=== PATIENT | male | born 1940 | race Caucasian/White ===

== ENCOUNTER 2018-09-29 09:59 | Inpatient (IN) | payer MEDICARE, OTHER ==
[2018-09-29] VITALS (17 sets, daily range): BP systolic 83–136; BP diastolic 63–111
[~2018-09-29] VITALS: Ht 170.2 cm; Wt 74.5 kg
[2018-09-29] MEDS ORDERED: DILTIAZEM 25 MG/5 ML INJ (CARDIZEM) VIAL IVP ONE (10:30)
[2018-09-29] MEDS ORDERED: NS IV 1000 ML 1,000 ML IV SCH (10:30)
[2018-09-29] MEDS ORDERED: DILTIAZEM INJECTION 125 MG in NS (IVPB) 100 ML IV SCH (10:30)
[2018-09-29 10:44] LABS: BASOPHILS % (AUTO) 1 % (0-10); EOSINOPHILS % (AUTO) 3 % (0-10); HEMATOCRIT 38 % (40-54); LYMPHOCYTES % (AUTO) 11 % (12-44); MEAN CORPUSCULAR HEMOGLOBIN 29 PG (25-34); MEAN CORPUSCULAR HGB CONC 32 G/DL (32-36); MEAN CORPUSCULAR VOLUME 91 FL (80-99); MEAN PLATELET VOLUME 10.5 FL (7.4-10.4); MONOCYTES # (AUTO) 0.8 X 10^3 (0.0-1.0); MONOCYTES % (AUTO) 9 % (0-12); NEUTROPHILS # (AUTO) 6.5 X 10^3 (1.8-7.8); NEUTROPHILS % (AUTO) 76 % (42-75); PLATELET COUNT 197 10^3/uL (130-400); RED CELL DISTRIBUTION WIDTH 14.5 % (10.0-14.5); WHITE BLOOD COUNT 8.5 10^3/uL (4.3-11.0)
--- NOTE | 2018-09-29 10:44 | ED General ---
General Chief Complaint: General Problems/Pain Stated Complaint: LT LEG SWELLING; NAUSEA Source of Information: Patient, Family Exam Limitations: No Limitations History of Present Illness Date Seen by Provider: Sep 29, 2018 Time Seen by Provider: 10:39 Initial Comments This 78-year-old white male presents with a number of complaints including palpitations, abdominal pain and nausea, leg swelling left worse than right. The patient denies fever, chills, headache, photophobia, stiff neck, productive cough, vomiting or diarrhea, hemoptysis, hematemesis, or black or tarry stool. The patient suffers from chronic A. fib. He has recently discontinued his amiodarone. His leg swelling has been present for the last 5 days. The patient's palpitations are chronic but have been worse in the last week. The patient currently is having neither abdominal pain or nausea. Allergies and Home Medications Allergies Coded Allergies: No Known Drug Allergies (Unverified , 09/29/18) Home Medications Albuterol Sulfate 1 Puff Puff, 2 PUFF IH Q4H PRN for SHORTNESS OF BREATH, ( Reported) 1 PUFF = 90 MCG Ascorbic Acid 500 Mg Tablet, 500 MG PO DAILY, (Reported) Aspirin 325 Mg Tablet.dr, 325 MG PO DAILY, (Reported) Donepezil HCl 10 Mg Tablet, 10 MG PO DAILY, (Reported) Doxycycline Hyclate 100 Mg Capsule, 100 MG PO DAILY, (Reported) Famotidine 20 Mg Tablet, 20 MG PO BID PRN for INDIGESTION, (Reported) Levothyroxine Sodium 25 Mcg Tablet, 25 MCG PO DAILY, (Reported) Metformin HCl 750 Mg Tab.er.24h, 750 MG PO for HYPERGLYCEMIA, (Reported) Prednisone 5 Mg Tablet, 5 MG PO DAILY, (Reported) Tamsulosin HCl 0.4 Mg Cap.er.24h, 0.4 MG PO BID, (Reported) Daily until stone passage Patient Home Medication List Home Medication List Reviewed: Yes Review of Systems Review of Systems Constitutional: No chills, No fever EENTM: No ear pain, No vision loss Respiratory: see HPI; No cough Cardiovascular: see HPI, edema (left leg greater than right), palpitations Gastrointestinal: abdominal pain; No diarrhea, No vomiting Genitourinary: no symptoms reported Musculoskeletal: No back pain, No neck pain Skin: No change in color, No rash Psychiatric/Neurological: No Symptoms Reported Hematologic/Lymphatic: No Symptoms Reported Immunological/Allergic: no symptoms reported Past Vhdbjvc-Npalkx-Ymagbw Hx Past Med/Social Hx: Reviewed Nursing Past Med/Soc Hx Patient Social History Recent Foreign Travel: No Contact w/Someone Who Travel: No Physical Exam Vital Signs Vital Signs - First Documented 09/29/18 09/29/18 10:37 11:29 Temp 97.4 Pulse 115 Resp 21 B/P (MAP) 131/87 (102) Pulse Ox 94 O2 Delivery Room Air O2 Flow Rate 2.00 Capillary Refill : Height, Weight, BMI Height: '" Weight: lbs. oz. kg; BMI Method: General Appearance: No Apparent Distress, WD/WN Eyes: Bilateral Eye Normal Inspection HEENT: Normal ENT Inspection Neck: Normal Inspection Respiratory: Decreased Breath Sounds Cardiovascular: Irregularly Irregular, Tachycardia Gastrointestinal: Normal Bowel Sounds, Non Tender, Soft Back: Normal Inspection Extremity: Swelling (3+ edema of the left leg. 2+ edema of the right leg.) Neurologic/Psychiatric: Alert, Oriented x3, No Motor/Sensory Deficits Skin: Normal Color, Warm/Dry Progress/Results/Core Measures Suspected Sepsis SIRS Temperature: Pulse: Respiratory Rate: Laboratory Tests 09/29/18 10:15: White Blood Count 8.5 Blood Pressure / Mean: Laboratory Tests 09/29/18 10:15: Creatinine 1.35H, INR Comment 1.2, Platelet Count 197, Total Bilirubin 0.8 Results/Orders Lab Results Laboratory Tests Test 09/29/18 10:15 Range/Units White Blood Count 8.5 4.3-11.0 10^3/uL Red Blood Count 4.17 L 4.35-5.85 10^6/uL Hemoglobin 12.0 L 13.3-17.7 G/DL Hematocrit 38 L 40-54 % Mean Corpuscular Volume 91 80-99 FL Mean Corpuscular Hemoglobin 29 25-34 PG Mean Corpuscular Hemoglobin Concent 32 32-36 G/DL Red Cell Distribution Width 14.5 10.0-14.5 % Platelet Count 197 130-400 10^3/uL Mean Platelet Volume 10.5 H 7.4-10.4 FL Neutrophils (%) (Auto) 76 H 42-75 % Lymphocytes (%) (Auto) 11 L 12-44 % Monocytes (%) (Auto) 9 0-12 % Eosinophils (%) (Auto) 3 0-10 % Basophils (%) (Auto) 1 0-10 % Neutrophils # (Auto) 6.5 1.8-7.8 X 10^3 Lymphocytes # (Auto) 1.0 1.0-4.0 X 10^3 Monocytes # (Auto) 0.8 0.0-1.0 X 10^3 Eosinophils # (Auto) 0.2 0.0-0.3 10^3/uL Basophils # (Auto) 0.1 0.0-0.1 10^3/uL Prothrombin Time 14.9 H 12.2-14.7 SEC INR Comment 1.2 0.8-1.4 D-Dimer 1.73 H 0.00-0.49 UG/ML Sodium Level 132 L 135-145 MMOL/L Potassium Level 4.3 3.6-5.0 MMOL/L Chloride Level 96 L 98-107 MMOL/L Carbon Dioxide Level 26 21-32 MMOL/L Anion Gap 10 5-14 MMOL/L Blood Urea Nitrogen 20 H 7-18 MG/DL Creatinine 1.35 H 0.60-1.30 MG/DL Estimat Glomerular Filtration Rate 51 BUN/Creatinine Ratio 15 Glucose Level 93 70-105 MG/DL Calcium Level 8.3 L 8.5-10.1 MG/DL Corrected Calcium 8.5 8.5-10.1 MG/DL Total Bilirubin 0.8 0.1-1.0 MG/DL Aspartate Amino Transf (AST/SGOT) 25 5-34 U/L Alanine Aminotransferase (ALT/SGPT) 20 0-55 U/L Alkaline Phosphatase 84 40-136 U/L Troponin T 130 *H <=15 NG/L B-Type Natriuretic Peptide 18790.0 H <100.0 PG/ML Total Protein 6.1 L 6.4-8.2 GM/DL Albumin 3.8 3.2-4.5 GM/DL Lipase 22 8-78 U/L My Orders Orders - TY RAUSCH MD Cbc With Automated Diff (09/29/18 10:22) BNP (09/29/18 10:22) Fibrin Degradation Products (09/29/18 10:22) Comprehensive Metabolic Panel (09/29/18 10:22) Chest 1 View Ap/Pa Only (09/29/18 10:22) Ekg Tracing (09/29/18 10:22) Diltiazem Injection (Cardizem Injection) (09/29/18 10:30) Ns (Ivpb) (Sodium C... W/Diltiazem Injec (09/29/18 10:30) Ns Iv 1000 Ml (Sodium Chloride 0.9%) (09/29/18 10:30) Ua Culture If Indicated (09/29/18 10:31) Lipase (09/29/18 10:31) Protime With Inr (09/29/18 10:31) Oxygen-Administer (09/29/18 10:45) Enoxaparin Injection (Lovenox Injection) (09/29/18 12:15) Medications Given in ED Current Medications Medications Dose Ordered Sig/Beatrice Route Start Time Stop Time Status Last Admin Dose Admin Diltiazem HCl 10 mg ONCE ONCE IVP 09/29/18 10:30 09/29/18 10:32 DC 09/29/18 10:52 10 MG Vital Signs/I&O 09/29/18 09/29/18 09/29/18 10:37 11:29 11:56 Temp 97.4 97.5 Pulse 115 114 Resp 21 18 B/P (MAP) 131/87 (102) 112/82 (92) Pulse Ox 94 95 98 O2 Delivery Room Air Nasal Cannula Nasal Cannula O2 Flow Rate 2.00 2.00 Capillary Refill : Progress Note : Time: 11:40 Progress Note The patient's EKG demonstrated RVR with a ventricular rate of 130. No acute injury pattern was appreciated. Patient's laboratory evaluation demonstrated a BNP of 12,000. The patient's troponin was elevated at 130. The patient's chest x-ray demonstrated a loss of the left hemidiaphragm with increased perihilar markings suggestive to me of CHF. I discussed treatment options with the patient and his and daughter. They would like to be transferred to [place]. A Cardizem bolus and drip of 10 mg/hr each was initiated. The patient's ventricular rate decreased to 105. His pressure was stable. Telephone consultation was undertaken with Dr. Casiano who was kind enough to admit the patient to the ICU [facility]. Departure Communication (Admissions) Time/Spoke to Admitting Phy: 11:45 Dr. Casiano Time/Spoke to Consulting Phy: 12:09 I discussed patient's presentation with Dr. Mcmahan, the patient's primary care physician at [place]. Impression Primary Impression: Congestive heart failure Qualified Codes: I50.43 - Acute on chronic combined systolic (congestive) and diastolic (congestive) heart failure Additional Impressions: Atrial fibrillation with rapid ventricular response Elevated troponin Elevated d-dimer Disposition: ADMITTED INPATIENT Condition: Improved Admissions Decision to Admit Reason: Admit from ER (General) Decision to Admit/Date: Sep 29, 2018 Time/Decision to Admit Time: 12:19 Transfer Time Spoke to Accepting Phy: 12:19 Departure-Patient Inst. Referrals: MICHEL MCMAHAN MD (PCP/Family) Primary Care Physician TY RAUSCH MD Sep 29, 2018 10:44
[2018-09-29 10:45] LABS: BASOPHILS # (AUTO) 0.1 10^3/uL (0.0-0.1); EOSINOPHILS # (AUTO) 0.2 10^3/uL (0.0-0.3)
--- NOTE | 2018-09-29 10:50 | Diagnostic Imaging Report ---
Indication: Nausea, leg swelling Findings: The heart size is upper limits but no gross overdistention of vascularity. Limited inspiratory volume, portable AP technique and body habitus limit evaluation of the lung bases particularly on the left where an infiltrate could not be excluded. Impression: Questionable infiltrate or atelectasis left base, upper limits heart size otherwise no abnormality apparent at this exam. Dictated by: Dictated on workstation # [id number]
[2018-09-29 10:56] LABS: FIBRIN DEGRADATION PRODUCTS 1.73 UG/ML (0.00-0.49); INR 1.2 (0.8-1.4); PROTHROMBIN TIME PATIENT 14.9 SEC (12.2-14.7)
[2018-09-29 11:20] LABS: BILIRUBIN,TOTAL 0.8 MG/DL (0.1-1.0); CALCIUM 8.3 MG/DL (8.5-10.1); CREATININE SERUM 1.35 MG/DL (0.60-1.30); POTASSIUM 4.3 MMOL/L (3.6-5.0)
[2018-09-29 11:22] LABS: ALBUMIN 3.8 GM/DL (3.2-4.5); TOTAL PROTEIN 6.1 GM/DL (6.4-8.2)
[2018-09-29] MEDS ORDERED: RT-ALBUINH IH (11:31)
[2018-09-29] MEDS ORDERED: ASPI325T32 PO (11:32)
[2018-09-29] MEDS ORDERED: DONE10TA41 PO (11:33)
[2018-09-29] MEDS ORDERED: FAMO20TA3 PO (11:34)
[2018-09-29] MEDS ORDERED: LEVO25TA5 PO (11:35)
[2018-09-29] MEDS ORDERED: TAMS0.4C2 PO (11:36)
[2018-09-29] MEDS ORDERED: PRED5TAB PO (11:39)
[2018-09-29] MEDS ORDERED: METF750T2 PO (11:42)
[2018-09-29] MEDS ORDERED: ASCO500T6 PO (11:45)
[2018-09-29] MEDS ORDERED: BENZ-36 PO (11:47)
[2018-09-29] MEDS ORDERED: DOXY100C2 PO (11:47)
[2018-09-29] MEDS ORDERED: ENOXAPARIN 80 MG/0.8 ML (LOVENOX) SYR SC ONE (12:15)
[2018-09-29 13:55] LABS: BILIRUBIN,URINE NEGATIVE (NEGATIVE); CLARITY,URINE CLEAR; COLOR,URINE YELLOW; GLUCOSE, URINE (UA) NEGATIVE (NEGATIVE); KETONES,URINE NEGATIVE (NEGATIVE); LEUKOCYTE ESTERASE ,URINE NEGATIVE (NEGATIVE); NITRITE,URINE NEGATIVE (NEGATIVE); PH,URINE 5.5 (5-9); PROTEIN,URINE TRACE (NEGATIVE); SQUAMOUS EPITHELIAL CELL,UR 0-2 /HPF; UROBILINOGEN,URINE 0.2 MG/DL (NORMAL)
[2018-09-29] MEDS ORDERED: DILTIAZEM 125 MG/NS 100 ML IV SCH ×2 (15:15)
[2018-09-29] MEDS ORDERED: CATHETER FLUSH 10 ML SYR IV PRN (15:15)
--- NOTE | 2018-09-29 15:19 | Consultation-Cardiology ---
HPI-Cardiology Cardiology Consultation: Date of Consultation 09/29/18 Time Seen by a Provider: 14:45 Date of Admission 09-29-18 Attending Physician Ty Rausch MD Admitting Physician Efrain Mcmahan MD Consulting Physician Ata Patel MD HPI: Chief Complaint: A-fib with RVR Mr. Schneider is a 78 year old male transferred to ICU 9 from [facility] ED. He reports he has a h/o a-fib for approx 30 years. He states he had seen a cloth measurer machine at [facility], but does not recall the name and has not seen him in several years. He states he came to the ED at [facility] d/t LLE swelling which started approx 6 days ago and has progressively gotten worse. He denies any c/ o CP or palpitations. He denies any syncope or near syncope. He states he does not take any other OAC than full strength ASA d/t h/o GI bleed several years ago for which he states a source was never found. He stated d/t chronic back pain he very inactive. Review of Systems-Cardiology Review of Systems Constitutional: No chills, No fever, No malaise Eyes: No vision change Ears/Nose/Throat: No recent hearing loss Respiratory: As described under HPI Cardiovascular: As described under HPI Gastrointestinal: No constipation, No diarrhea, No nausea, No vomiting Genitourinary: No dysuria; incontinence Musculoskeletal: As describe under HPI Skin: No rash, No ulcerations Psychiatric/Neurological: No seizure, No focal weakness, No syncope Hematologic: No bleeding abnormalities KJU-Wmsvvt-Qqjhnv Hx Patient Social History Alcohol Use: Denies Use Recreational Drug Use: No Smoking Status: Never a Smoker 2nd Hand Smoke Exposure: No Recent Foreign Travel: No Recent Infectious Disease Expo: No Hospitalization with Isolation: Denies Past Medical History PMH As described under Assessment. Allergies and Home Medications Allergies Coded Allergies: No Known Drug Allergies (Unverified , 09/29/18) Home Medications Albuterol Sulfate 1 Puff Puff, 2 PUFF IH Q4H PRN for SHORTNESS OF BREATH, ( Reported) Albuterol Sulfate 2.5 Mg/3 Ml Vial.neb, 2.5 MG NEB Q4H PRN for SHORTNESS OF BREATH, (Reported) Ascorbic Acid 500 Mg Tablet, 500 MG PO BID, (Reported) Aspirin 325 Mg Tablet.dr, 325 MG PO DAILY, (Reported) Benzonatate 200 Mg Capsule, 200 MG PO TID PRN for COUGH, (Reported) Donepezil HCl 10 Mg Tablet, 10 MG PO HS, (Reported) Doxycycline Hyclate 100 Mg Capsule, 100 MG PO HS, (Reported) Famotidine 20 Mg Tablet, 20 MG PO BID PRN for INDIGESTION, (Reported) Glipizide 10 Mg Tab.er.24, 10 MG PO DAILY, (Reported) Levothyroxine Sodium 25 Mcg Tablet, 25 MCG PO DAILY, (Reported) Metformin HCl 750 Mg Tab.er.24h, 750 MG PO DAILY PRN for HYPERGLYCEMIA, ( Reported) Oxymetazoline HCl 30 Ml Brooks, 1 SPRAY NS DAILY PRN for CONGESTION, (Reported) Prednisone 5 Mg Tablet, 5 MG PO DAILY, (Reported) Tamsulosin HCl 0.4 Mg Cap.er.24h, 0.4 MG PO BID, (Reported) Physical Exam-Cardiology Physical Exam Vital Signs/I&O 09/29/18 09/29/18 09/29/18 09/29/18 21:00 21:17 22:00 23:00 Pulse 89 111 89 Resp 14 14 15 B/P (MAP) 103/69 (80) 132/77 (95) 124/63 (83) Pulse Ox 99 97 100 O2 Delivery Nasal Cannula Nasal Cannula Nasal Cannula Nasal Cannula O2 Flow Rate 2.00 2.00 2.00 2.00 09/29/18 09/30/18 09/30/18 09/30/18 23:05 00:00 00:25 01:00 Temp 98.0 Pulse 87 80 Resp 25 29 B/P (MAP) 109/76 (87) 111/73 (86) Pulse Ox 95 100 100 O2 Delivery Nasal Cannula Nasal Cannula Nasal Cannula O2 Flow Rate 2.00 2.00 2.00 09/30/18 09/30/18 09/30/18 09/30/18 01:00 02:00 03:00 03:05 Temp 98.6 Pulse 94 84 84 Resp 30 13 B/P (MAP) 104/78 (87) 95/75 (82) Pulse Ox 100 100 100 O2 Delivery Nasal Cannula Nasal Cannula Nasal Cannula O2 Flow Rate 2.00 2.00 2.00 2/28/19 2/28/19 2/28/19 2/28/19 04:00 04:35 05:00 06:00 Pulse 78 78 70 64 Resp 23 20 21 B/P (MAP) 108/72 (84) 99/60 (73) 95/63 (74) Pulse Ox 100 100 100 98 O2 Delivery Nasal Cannula Nasal Cannula Nasal Cannula O2 Flow Rate 2.00 2.00 2.00 09/30/18 07:00 Pulse 65 09/30/18 00:00 Intake Total 450 ml Output Total 900 ml Balance -450 ml Capillary Refill : Less Than 3 Seconds Constitutional: AAO x 3, well-developed, well-nourished HEENT: hearing is well preserved, oral hygience is good Neck: No carotid bruit; carotid pulses are 2 + bilaterally Respiratory: No accessory muscle use, No respiratory distress; chest expansion is symmetric, chest is bilaterally symmetric, crackles (lower lobes bilat) Cardiovascular: irregularly irregular; No JVD; systolic murmur Gastrointestinal: No tender; round, audible bowel sounds Rectal: deferred Extremities: other (LLE swelling, mod) Neurologic/Psychiatric: oriented x 3, grossly intact Skin: No rash, No ulcerations; other (bruising at the umbilicus) Data Review Labs Laboratory Tests 09/29/18 10:15: White Blood Count 8.5, Red Blood Count 4.17L, Hemoglobin 12.0L, Hematocrit 38L, Mean Corpuscular Volume 91, Mean Corpuscular Hemoglobin 29, Mean Corpuscular Hemoglobin Concent 32, Red Cell Distribution Width 14.5, Platelet Count 197, Mean Platelet Volume 10.5H, Neutrophils (%) (Auto) 76H, Lymphocytes (%) (Auto) 11L, Monocytes (%) (Auto) 9, Eosinophils (%) (Auto) 3, Basophils (%) (Auto) 1, Neutrophils # (Auto) 6.5, Lymphocytes # (Auto) 1.0, Monocytes # (Auto) 0.8, Eosinophils # (Auto) 0.2, Basophils # (Auto) 0.1, Prothrombin Time 14.9H, INR Comment 1.2, D-Dimer 1.73H, Sodium Level 132L, Potassium Level 4.3, Chloride Level 96L, Carbon Dioxide Level 26, Anion Gap 10, Blood Urea Nitrogen 20H, Creatinine 1.35H, Estimat Glomerular Filtration Rate 51, BUN/Creatinine Ratio 15 , Glucose Level 93, Calcium Level 8.3L, Corrected Calcium 8.5, Total Bilirubin 0.8, Aspartate Amino Transf (AST/SGOT) 25, Alanine Aminotransferase (ALT/SGPT) 20, Alkaline Phosphatase 84, Troponin T 130*H, B-Type Natriuretic Peptide 81965.0H, Total Protein 6.1L, Albumin 3.8, Lipase 22 09/29/18 12:05: Glucometer 91 09/29/18 13:00: Urine Color YELLOW, Urine Clarity CLEAR, Urine pH 5.5, Urine Specific [place] < 1.005, Urine Protein TRACE, Urine Glucose (UA) NEGATIVE, Urine Ketones NEGATIVE , Urine Nitrite NEGATIVE, Urine Bilirubin NEGATIVE, Urine Urobilinogen 0.2, Urine Leukocyte Esterase NEGATIVE, Urine RBC (Auto) NEGATIVE, Urine RBC NONE, Urine WBC NONE, Urine Squamous Epithelial Cells 0-2, Urine Crystals NONE, Urine Bacteria NONE, Urine Casts NONE, Urine Mucus NEGATIVE, Urine Culture Indicated NO 09/29/18 15:50: Troponin I 0.084H 09/29/18 18:15: Troponin I 0.079H 09/29/18 21:04: Glucometer 129H 09/30/18 03:25: White Blood Count 9.2, Red Blood Count 3.77L, Hemoglobin 10.6L, Hematocrit 33L, Mean Corpuscular Volume 88, Mean Corpuscular Hemoglobin 28, Mean Corpuscular Hemoglobin Concent 32, Red Cell Distribution Width 14.9H, Platelet Count 176, Mean Platelet Volume 10.3, Neutrophils (%) (Auto) 79H, Lymphocytes (%) (Auto) 9L , Monocytes (%) (Auto) 10, Eosinophils (%) (Auto) 2, Basophils (%) (Auto) 1, Neutrophils # (Auto) 7.2, Lymphocytes # (Auto) 0.9L, Monocytes # (Auto) 0.9, Eosinophils # (Auto) 0.2, Basophils # (Auto) 0.1, Sodium Level 134L, Potassium Level 4.4, Chloride Level 103, Carbon Dioxide Level 20L, Anion Gap 11, Blood Urea Nitrogen 21H, Creatinine 1.52H, Estimat Glomerular Filtration Rate 45, BUN/ Creatinine Ratio 14, Glucose Level 90, Calcium Level 8.3L, Corrected Calcium 8.9 , Phosphorus Level 3.5, Magnesium Level 1.6L, Total Bilirubin 1.0, Aspartate Amino Transf (AST/SGOT) 28, Alanine Aminotransferase (ALT/SGPT) 21, Alkaline Phosphatase 72, B-Type Natriuretic Peptide 991.7H, Total Protein 5.1L, Albumin 3.2, Triglycerides Level 64, Cholesterol Level 136, LDL Cholesterol Direct 76, VLDL Cholesterol 13, HDL Cholesterol 49, Thyroid Stimulating Hormone (TSH) 4.11 Radiology NAME: GRETCHEN SCHNEIDER [facility] REC#: [id number] PT STATUS: ADM IN : 1940 PHYSICIAN: TY RAUSCH MD ADMIT DATE: 09/29/18/ICU Signed Date of Exam: 09/29/18 CHEST 1 VIEW AP/PA ONLY Indication: Nausea, leg swelling Findings: The heart size is upper limits but no gross overdistention of vascularity. Limited inspiratory volume, portable AP technique and body habitus limit evaluation of the lung bases particularly on the left where an infiltrate could not be excluded. Impression: Questionable infiltrate or atelectasis left base, upper limits heart size otherwise no abnormality apparent at this exam. Dictated by: Dictated on workstation # [id number] Dict: 09/29/18 1048 Trans: 09/29/18 1313 Interpreted by: KISHA MENDEZ Electronically signed by: KISHA MENDEZ 09/29/18 1313 ECG Impression ECG Initial ECG Impression: Atrial Fibrillation w/RVR A/P-Cardiology Assessment/Admission Diagnosis Chronic a-fib (pt reports 30 years) - currently with RVR (reports he was on Amiodarone in the past) LLE swelling of undetermined etiology H/O TIA's in the past CHF Reported h/o GI bleed in the past for which he has undergone endoscopy and no source was found (per pt) - he refuses any OAC other than full dose ASA DM II Reports h/o hypotension d/t medications in the past - exact details unknown Chronic back pain - states relatively inactive at home d/t pain Hypothyroidism - replacement tx Renal insufficiency - like chronic in some part d/t diabetic nephrology Discussion and Recomendations Chronic a-fib, currently with RVR - continue Cardizem gtt - titrate for rate Echocardiogram to evaluate perfusion Currently receiving Lovenox for stroke prophylaxis We advise OAC for stroke prophylaxis - he refuses anything other than ASA d/t reported h/o GI bleed in the past - he is aware of the implications of his decision LLE swelling - advise lower extremity doppler to eval for DVT Monitor lab closely We advise TSH Further recs will be based on his hospital course TONY HOLLIDAY Sep 29, 2018 15:19
--- NOTE | 2018-09-29 15:28 | History & Physical-Hospitalist ---
History of Present Illness HPI/Chief Complaint Pt is a 78yoCM with a PMH of a-fib, NIDDMII, hypothyroidism, TIA who presented to the ER with a CC of left leg swelling times 6 days. He states he was seen by his primary care doctor and was scheduled for an outpatient ultrasound but his thought he was doing worse so brought him to the emergency room. He was found to have significant lower extremity edema and a BNP of 12k. He was also found to be in a-fib with RVR. Reportedly he is supposed to be on amiodarone but quit taking it. He seems to be noncompliant with most of his medications as he has not been taking his metformin either. He is a somewhat poor historian and attempts to compensate for recollection issues with humor. He states he is feeling well and isn't sure why he is in the hospital but when directly asked about symptoms he endorses SOB, orthopnea, and palpitations. He states his heart rate is normally 120s at home. Source: patient Date Seen 09/29/18 Time Seen by a Provider: 15:25 Attending Physician Adalberto Briseno MD PCP SelfEfrain MD Referring Physician Date of Admission Sep 29, 2018 at 12:19 Home Medications & Allergies Home Medications Reviewed patient Home Medication Reconciliation performed by pharmacy medication reconciliations camera technician and/or nursing. Patients Allergies have been reviewed. Allergies Allergies Coded Allergies No Known Drug Allergies (Unverified09/29/18) Past Kdqfoja-Nybvce-Cjljnd Hx Past Med/Social Hx: Reviewed Nursing Past Med/Soc Hx Patient Social History Marrital Status: Alcohol Use: Denies Use Recreational Drug Use: No Smoking Status: Never a Smoker 2nd Hand Smoke Exposure: No Recent Foreign Travel: No Contact w/other who traveled: No Recent Hopitalizations: No Recent Infectious Disease Expo: No Seasonal Allergies Seasonal Allergies: No Past Medical History Cardiac: Atrial Fibrillation, Hypotension Neurological: TIA Genitourinary: Renal Failure Endocrine: Diabetes, Non-Insulin dep History of Blood Disorders: No Adverse Reaction to Blood Nixon: No Family History Reviewed Nursing Family Hx No Pertinent Family Hx Review of Systems Constitutional: no symptoms reported EENTM: no symptoms reported Respiratory: orthopnea, short of breath Cardiovascular: No chest pain; edema, palpitations Gastrointestinal: no symptoms reported Genitourinary: no symptoms reported Musculoskeletal: no symptoms reported Skin: no symptoms reported Psychiatric/Neurological: No Symptoms Reported Physical Exam Physical Exam Vital Signs Vital Signs - First Documented 09/29/18 09/29/18 10:37 11:29 Temp 97.4 Pulse 115 Resp 21 B/P (MAP) 131/87 (102) Pulse Ox 94 O2 Delivery Room Air O2 Flow Rate 2.00 Capillary Refill : Less Than 3 Seconds Height, Weight, BMI Height: 5'7.00" Weight: 160lbs. oz. 72.772281pt; BMI Method:Stated General Appearance: No Apparent Distress, Chronically ill HEENT: Moist Mucous Membranes; No Scleral Icterus (L), No Scleral Icterus (R) Respiratory: No Accessory Muscle Use, No Respiratory Distress, Decreased Breath Sounds Cardiovascular: No Murmur, Irregularly Irregular Gastrointestinal: Normal Bowel Sounds, Non Tender, Soft Extremity: No Calf Tenderness, No Pedal Edema Neurologic/Psychiatric: Alert, No Motor/Sensory Deficits, Normal Mood/Affect Skin: Normal Color, Warm/Dry Results Results/Procedures Labs Laboratory Tests 09/29/18 10:15 09/30/18 03:25 Patient resulted labs reviewed. Imaging: Reviewed Imaging Report Assessment/Plan Admission Diagnosis a-fib with RVR Admission Status: Inpatient Order (span 2 midnights) Reason for Inpatient Admission: ICu level care for cardizem gtt, needs IV diuresis Diagnosis/Problems Diagnosis/Problems (1) Atrial fibrillation with rapid ventricular response Status: Acute Assessment & Plan: Rate improved to 100-110 during my exam Continue on carizem gtt echo ordered Patient declines anticoagulation due to history of GI bleed- on ASA only Cardiology consulted, appreciate recs (2) Congestive heart failure Status: Acute Assessment & Plan: IV lasix ordered Echo Cardiology consulted Monitor i/os Qualifiers: Heart failure type: systolic Heart failure chronicity: acute on chronic Qualified Codes: I50.23 - Acute on chronic systolic (congestive) heart failure (3) Hypothyroidism Status: Chronic Assessment & Plan: Resume home synthroid Qualifiers: Hypothyroidism type: unspecified Qualified Codes: E03.9 - Hypothyroidism, unspecified (4) Non-insulin dependent type 2 diabetes mellitus Assessment & Plan: Only take metformin prn and is on glyburide Will hold both and monitor blood sugars sliding scale insulin (5) Elevated troponin Status: Acute Assessment & Plan: Mildly elevated troponin at outside ER Will trend Cardiology consulted (6) Elevated d-dimer Status: Acute Assessment & Plan: Doppler of left lower extremity ordered (7) CKD (chronic kidney disease) Assessment & Plan: Unsure of baseline but patient reports history of CKD Trend Qualifiers: Chronic kidney disease stage: stage 2 (mild) Qualified Codes: N18.2 - Chronic kidney disease, stage 2 (mild) HELDER ROMAN MD Sep 29, 2018 15:28
[2018-09-29] MEDS ORDERED: GLIP-173 PO (15:58)
[2018-09-29] MEDS ORDERED: ALBU2.5V4 NEB (15:58)
[2018-09-29] MEDS ORDERED: BENZ200C51 PO (15:58)
--- NOTE | 2018-09-29 15:58 | Diagnostic Imaging Report ---
PROCEDURE: US left lower extremity venous. TECHNIQUE: Multiple real-time grayscale images were obtained over the left lower extremity in various projections. Additional duplex Doppler and color Doppler images were also obtained. INDICATION: Left leg swelling. EXAMINATION: Grayscale and color Doppler evaluation of the deep veins of the left lower extremity were performed with waveform analysis. FINDINGS: Continuous venous flow is present. No intraluminal filling defect is identified. There is normal compressibility and response to augmentation. No abnormal perivascular fluid collection is identified. IMPRESSION: No ultrasound evidence of left lower extremity deep venous thrombosis. Dictated by: Dictated on workstation # [id number]
[2018-09-29] MEDS ORDERED: FLU QUADRIvalent (5+ YOA) 2018-2019 (AFLURIA) 0.5 ML IM ONE (16:00)
[2018-09-29] MEDS ORDERED: OXYM30SP NS (16:27)
--- NOTE | 2018-09-29 16:28 | NUR ---
CALLED AND SPOKE WITH THE PATIENTS ANNE AT [phone]. SHE STATES SHE GAVE A LIST OF MEDICATIONS TO THE ED IN [place] HOWEVER I DID NOT FIND A COPY. SHE READ THE LIST SHE HAS TO ME AND I COMPARED IT WITH THE EXT MED HX. HIS PREDNISONE IS FILLED FOR 1 TAB BID HOWEVER SHE STATES HE ONLY TAKES 1 TAB ONCE DAILY. HE TAKES THE FOLLOWING OTC: AFRIN PRN ASPIRIN 325MG DAILY PEPCID PRN VITAMIN C BID IN ADDITION TO WHAT IS SHOWN ON THE EXT MED HX SHE STATES HE HAS A PROAIR INHALER NEEDED ON HAND. HE ALSO HAS METFORMIN HE TAKES PRN FOR HIGH BLOOD SUGAR. I CALLED JESSICA IN [place] AND THEY VERIFIED THE FILLED METFORMIN ER 750MG BID #[id number] IN 2016. I ADDED IT TO THE MED REC BUT SHE STATES HE DOES NOT TAKE IT OFTEN AND HE RARELY TESTS HIS BLOOD SUGAR BUT HE KNOWS WHEN HE IS VERY HIGH.
[2018-09-29] MEDS ORDERED: KCL 20 MEQ TAB (K-DUR) PO NR (16:30)
[2018-09-29] MEDS ORDERED: DILTIAZEM 240 MG (CARDIZEM CD) CAP PO NR (16:30)
[2018-09-29] MEDS ORDERED: PATIENT MAY USE OWN MED,SINGLE MED PO SCH (17:00)
[2018-09-29] MEDS: FUROSEMIDE 40 MG/4 ML INJ (LASIX) IVP SCH (17:30)
[2018-09-29] MEDS: NS IV 1000 ML 1,000 ML IV SCH (17:41)
[2018-09-29] MEDS ORDERED: NON-FORMULARY MEDICATION 1 EA EA (Famotidine (Acid Reducer (FAMOTIDINE)) 20 MG) PO PRN (18:45)
[2018-09-29] MEDS ORDERED: NON-FORMULARY MEDICATION 1 EA EA (Benzonatate 200 MG) PO PRN (18:45)
[2018-09-29] MEDS ORDERED: RT-ALBUTEROL SULF 2.5 MG/3 ML PRE-MIX VIAL INH PRN (18:45)
[2018-09-29] MEDS ORDERED: FAMOTIDINE 20 MG (PEPCID) TABLET PO PRN (19:00)
--- NOTE | 2018-09-29 19:10 | Consultation-Cardiology ---
HPI-Cardiology Cardiology Consultation: Date of Consultation 09/29/18 Time Seen by a Provider: 18:20 Date of Admission Attending Physician Ariadne Casiano MD Admitting Physician Efrain Mcmahan MD Consulting Physician SAMANTHA LOYOLA MD, MA, FACP, FACC, [facility] [place], CCDS Physician requesting consult: Dr Casiano HPI: Chief Complaint: Reason for consultation: A-fib with RVR HPI Mr. Neff is a 78 year old male transferred to ICU 9 from [facility] ED. He reports he has a h/o a-fib for approx 30 years. He states he had seen a pneumatic tube fitter at [facility], but does not recall the name and has not seen him in several years. He states he came to the ED at [facility] d/t LLE swelling which started approx 6 days ago and has progressively gotten worse. He denies any c/ o CP or palpitations. He denies any syncope or near syncope. He states he does not take any other OAC than full strength ASA d/t h/o GI bleed several years ago for which he states a source was never found. He stated d/t chronic back pain he very inactive. Review of Systems-Cardiology Review of Systems Constitutional: No chills, No fever, No malaise Eyes: No vision change Ears/Nose/Throat: No recent hearing loss Respiratory: As described under HPI Cardiovascular: As described under HPI Gastrointestinal: No constipation, No diarrhea, No nausea, No vomiting Genitourinary: No dysuria; incontinence Musculoskeletal: As describe under HPI Skin: No rash, No ulcerations Psychiatric/Neurological: No seizure, No focal weakness, No syncope Hematologic: No bleeding abnormalities [id number]-Kifuoe Hx Patient Social History Marrital Status: Alcohol Use: Denies Use Recreational Drug Use: No Smoking Status: Never a Smoker 2nd Hand Smoke Exposure: No Recent Foreign Travel: No Recent Infectious Disease Expo: No Hospitalization with Isolation: Denies Immunizations Up To Date Date of Pneumonia Vaccine: Sep 29, 2017 Past Medical History PMH As described under Assessment. Allergies and Home Medications Allergies Coded Allergies: No Known Drug Allergies (Unverified , 09/29/18) Home Medications Albuterol Sulfate 1 Puff Puff, 2 PUFF IH Q4H PRN for SHORTNESS OF BREATH, ( Reported) Albuterol Sulfate 2.5 Mg/3 Ml Vial.neb, 2.5 MG NEB Q4H PRN for SHORTNESS OF BREATH, (Reported) Ascorbic Acid 500 Mg Tablet, 500 MG PO BID, (Reported) Aspirin 325 Mg Tablet.dr, 325 MG PO DAILY, (Reported) Benzonatate 200 Mg Capsule, 200 MG PO TID PRN for COUGH, (Reported) Donepezil HCl 10 Mg Tablet, 10 MG PO HS, (Reported) Doxycycline Hyclate 100 Mg Capsule, 100 MG PO HS, (Reported) Famotidine 20 Mg Tablet, 20 MG PO BID PRN for INDIGESTION, (Reported) Glipizide 10 Mg Tab.er.24, 10 MG PO DAILY, (Reported) Levothyroxine Sodium 25 Mcg Tablet, 25 MCG PO DAILY, (Reported) Metformin HCl 750 Mg Tab.er.24h, 750 MG PO DAILY PRN for HYPERGLYCEMIA, ( Reported) Oxymetazoline HCl 30 Ml Melvin, 1 SPRAY NS DAILY PRN for CONGESTION, (Reported) Prednisone 5 Mg Tablet, 5 MG PO DAILY, (Reported) Tamsulosin HCl 0.4 Mg Cap.er.24h, 0.4 MG PO BID, (Reported) Patient Home Medication List Home Medication List Reviewed: Yes Physical Exam-Cardiology Physical Exam Vital Signs/I&O 09/29/18 09/29/18 09/29/18 09/29/18 10:37 11:29 11:56 13:15 Temp 97.4 97.5 Pulse 115 114 96 Resp 19 B/P (MAP) 131/87 (102) 112/82 (92) 122/82 (95) Pulse Ox 94 95 98 92 O2 Delivery Room Air Nasal Cannula Nasal Cannula Nasal Cannula O2 Flow Rate 2.00 2.00 2.00 09/29/18 09/29/18 09/29/18 09/29/18 13:53 14:00 14:49 15:00 Temp 97.3 97.8 Pulse 135 115 117 Resp 17 23 B/P (MAP) 116/92 (100) 116/78 (91) 136/100 (112) Pulse Ox 94 94 96 O2 Delivery Nasal Cannula Room Air Nasal Cannula O2 Flow Rate 2.00 2.00 2.00 09/29/18 09/29/18 09/29/18 09/29/18 15:01 15:15 15:30 15:45 Pulse 110 116 116 105 Resp 18 14 15 B/P (MAP) 131/85 (100) 112/82 (92) 108/70 (83) Pulse Ox 98 97 98 O2 Delivery Nasal Cannula Nasal Cannula Nasal Cannula O2 Flow Rate 2.00 2.00 2.00 09/29/18 09/29/18 09/29/18 09/29/18 16:00 16:15 17:00 18:00 Pulse 101 98 116 113 Resp 19 27 17 18 B/P (MAP) 107/85 (92) 124/83 (97) 128/111 (117) 83/63 (70) Pulse Ox 97 98 98 O2 Delivery Nasal Cannula Nasal Cannula Nasal Cannula Nasal Cannula O2 Flow Rate 2.00 2.00 2.00 2.00 Capillary Refill : Less Than 3 Seconds Constitutional: AAO x 3, well-developed, well-nourished HEENT: hearing is well preserved, oral hygience is good Neck: No carotid bruit; carotid pulses are 2 + bilaterally Respiratory: No accessory muscle use, No respiratory distress; chest expansion is symmetric, chest is bilaterally symmetric, crackles (lower lobes bilat) Cardiovascular: irregularly irregular; No JVD; systolic murmur Gastrointestinal: No tender; round, audible bowel sounds Rectal: deferred Extremities: other (LLE swelling, mod) Neurologic/Psychiatric: oriented x 3, grossly intact Skin: No rash, No ulcerations; other (bruising at the umbilicus) Data Review Labs Laboratory Tests 09/29/18 10:15: White Blood Count 8.5, Red Blood Count 4.17L, Hemoglobin 12.0L, Hematocrit 38L, Mean Corpuscular Volume 91, Mean Corpuscular Hemoglobin 29, Mean Corpuscular Hemoglobin Concent 32, Red Cell Distribution Width 14.5, Platelet Count 197, Mean Platelet Volume 10.5H, Neutrophils (%) (Auto) 76H, Lymphocytes (%) (Auto) 11L, Monocytes (%) (Auto) 9, Eosinophils (%) (Auto) 3, Basophils (%) (Auto) 1, Neutrophils # (Auto) 6.5, Lymphocytes # (Auto) 1.0, Monocytes # (Auto) 0.8, Eosinophils # (Auto) 0.2, Basophils # (Auto) 0.1, Prothrombin Time 14.9H, INR Comment 1.2, D-Dimer 1.73H, Sodium Level 132L, Potassium Level 4.3, Chloride Level 96L, Carbon Dioxide Level 26, Anion Gap 10, Blood Urea Nitrogen 20H, Creatinine 1.35H, Estimat Glomerular Filtration Rate 51, BUN/Creatinine Ratio 15 , Glucose Level 93, Calcium Level 8.3L, Corrected Calcium 8.5, Total Bilirubin 0.8, Aspartate Amino Transf (AST/SGOT) 25, Alanine Aminotransferase (ALT/SGPT) 20, Alkaline Phosphatase 84, Troponin T 130*H, B-Type Natriuretic Peptide 63291.0H, Total Protein 6.1L, Albumin 3.8, Lipase 22 09/29/18 12:05: Glucometer 91 09/29/18 13:00: Urine Color YELLOW, Urine Clarity CLEAR, Urine pH 5.5, Urine Specific [place] < 1.005, Urine Protein TRACE, Urine Glucose (UA) NEGATIVE, Urine Ketones NEGATIVE , Urine Nitrite NEGATIVE, Urine Bilirubin NEGATIVE, Urine Urobilinogen 0.2, Urine Leukocyte Esterase NEGATIVE, Urine RBC (Auto) NEGATIVE, Urine RBC NONE, Urine WBC NONE, Urine Squamous Epithelial Cells 0-2, Urine Crystals NONE, Urine Bacteria NONE, Urine Casts NONE, Urine Mucus NEGATIVE, Urine Culture Indicated NO 09/29/18 15:50: Troponin I 0.084H 09/29/18 18:15: Laboratory Tests 09/29/18 10:15 A/P-Cardiology Assessment/Admission Diagnosis Chronic a-fib (pt reports 30 years) - currently with RVR LLE swelling of undetermined etiology, no Doppler evidence of DVT on 09/29/18 Mild troponin elevation, likely due to transient hypotension and hypoxemia. This does not appear to be Type 1 [place] H/O TIA's in the past CHF, acute on chronic systolic Echo of 09/29/18: LVEF 30-35%, global hypokinesis, mod MR, mod TR, PASP 40 mmHg Reported h/o GI bleed in the past for which he has undergone endoscopy and no source was found (per pt) - he refuses any OAC other than full dose ASA DM II Reports h/o hypotension d/t medications in the past - exact details unknown Chronic back pain - states relatively inactive at home d/t pain Hypothyroidism - replacement tx Renal insufficiency - likely chronic in some part d/t diabetic nephropathy Discussion and Recomendations * Complex management due to multiple comorbidities, including considerable cardiomyopathy * Dilt for vent rate control * Add bb and PARISH-inhib if bp tolerate. Currently bp is borderline low * Continue diuretics for CHF as needed and as tolerated * We have advised OAC for stroke prophylaxis. He refuses. (Does understand the implication sof his decision) * Monitor lab closely * We advise TSH * Further recs will be based on his hospital course Clinical Quality Measures DVT/VTE Risk/Contraindication: Risk Factor Score Per Nursin RFS Level Per Nursing on Admit: 4+=Very High SAMANTHA LOYOLA MD FACP FAC CCDS Sep 29, 2018 19:10
[2018-09-29] MEDS ORDERED: LIDOCAINE UROJET 2% GEL 10 ML PKG ONE (19:47)
[2018-09-29] MEDS ORDERED: NON-FORMULARY MEDICATION 1 EA EA (Donepezil HCl 10 MG) PO SCH (21:00)
[2018-09-29] MEDS ORDERED: NON-FORMULARY MEDICATION 1 EA EA (Doxycycline Hyclate 100 MG) PO SCH (21:00)
[2018-09-29] MEDS: inSUlin ASPART (NovoLOG) 1 UNIT/0.01 ML (CHARGE PER UNIT) SC SCH (21:04)
[2018-09-29] MEDS: DONEPEZIL 10 MG (ARICEPT) TAB PO SCH (21:06)
[2018-09-29] MEDS: DOXYCYCLINE 100 MG (VIBRAMYCIN) TABLET PO SCH (21:06)
[2018-09-29] MEDS: TAMSULOSIN 0.4 MG (FLOMAX) CAP PO SCH (21:06)
--- NOTE | 2018-09-29 22:02 | NUR ---
Call to E ICU at this time about patient pain from Davidson cath insertion. Patient has a history of prostatitis and he is having pain from the cath. Patient is requesting Aspirin. Informed E ICU that patient is already on scheduled ASA. No PRN analgesic ordered.
[2018-09-29] MEDS: BENZONATATE 100 MG (TESSALON) CAPSULE PO PRN (22:10)
[2018-09-29] MEDS ORDERED: ACETAMINOPHEN 325 MG TABLET PO ONE (22:15)
[2018-09-30] VITALS (23 sets, daily range): BP systolic 88–141; BP diastolic 59–89
[2018-09-30] MEDS ORDERED: ENOXAPARIN 80 MG/0.8 ML (LOVENOX) SYR SC SCH
[2018-09-30 03:58] LABS: BASOPHILS # (AUTO) 0.1 10^3/uL (0.0-0.1); BASOPHILS % (AUTO) 1 % (0-10); EOSINOPHILS # (AUTO) 0.2 10^3/uL (0.0-0.3); EOSINOPHILS % (AUTO) 2 % (0-10); HEMATOCRIT 33 % (40-54); HEMOGLOBIN 10.6 G/DL (13.3-17.7); LYMPHOCYTES # (AUTO) 0.9 X 10^3 (1.0-4.0); LYMPHOCYTES % (AUTO) 9 % (12-44); MEAN CORPUSCULAR HEMOGLOBIN 28 PG (25-34); MEAN CORPUSCULAR HGB CONC 32 G/DL (32-36); MEAN CORPUSCULAR VOLUME 88 FL (80-99); MEAN PLATELET VOLUME 10.3 FL (7.4-10.4); MONOCYTES # (AUTO) 0.9 X 10^3 (0.0-1.0); MONOCYTES % (AUTO) 10 % (0-12); NEUTROPHILS # (AUTO) 7.2 X 10^3 (1.8-7.8); NEUTROPHILS % (AUTO) 79 % (42-75); PLATELET COUNT 176 10^3/uL (130-400); RED CELL DISTRIBUTION WIDTH 14.9 % (10.0-14.5); WHITE BLOOD COUNT 9.2 10^3/uL (4.3-11.0)
[2018-09-30 04:13] LABS: ALBUMIN 3.2 GM/DL (3.2-4.5); CALCIUM 8.3 MG/DL (8.5-10.1); CREATININE SERUM 1.52 MG/DL (0.60-1.30); MAGNESIUM 1.6 MG/DL (1.8-2.4); PHOSPHORUS 3.5 MG/DL (2.3-4.7); POTASSIUM 4.4 MMOL/L (3.6-5.0); TOTAL PROTEIN 5.1 GM/DL (6.4-8.2)
[2018-09-30] MEDS: MAGNESIUM 1 GM/100 ML IVPB 100 ML IV SCH ×3 (04:39→06:24)
[2018-09-30] MEDS: KCL 20 MEQ TAB (K-DUR) PO SCH ×2 (04:39→06:24)
[2018-09-30] MEDS: POTASSIUM CL 10MEQ/50ML IVPB 50 ML IV SCH (04:39)
[2018-09-30] MEDS: inSUlin ASPART (NovoLOG) 1 UNIT/0.01 ML (CHARGE PER UNIT) SC SCH ×4 (04:40→20:23)
[2018-09-30] MEDS: NS IV 1000 ML 1,000 ML IV SCH (05:15)
[2018-09-30] MEDS ORDERED: ONDANSETRON 4 MG/2 ML (SDV) Z0FRAN IV PRN (06:15)
[2018-09-30] MEDS: LEVOTHYROXINE 25 MCG (LEVOTHROID) TAB PO SCH (06:24)
[2018-09-30] MEDS: FUROSEMIDE 40 MG/4 ML INJ (LASIX) IVP SCH (06:24)
--- NOTE | 2018-09-30 07:22 | Diagnostic Imaging Report ---
INDICATION: Dyspnea. Comparison made with prior examination 09/29/2018. FINDINGS: There is cardiomegaly. There is some venous congestion. There is a left perihilar and right basilar infiltrate. There is no pleural effusion or pneumothorax. Mediastinum is unremarkable. IMPRESSION: Left perihilar and right basilar infiltrate suspect for pneumonia. Cardiomegaly and mild central pulmonary venous congestion. Dictated by: Dictated on workstation # [id number]
--- NOTE | 2018-09-30 07:57 | Progress Note-Hospitalist ---
Subjective HPI/CC On Admission Date Seen by Provider: Sep 30, 2018 Time Seen by Provider: 07:51 Pt is a 78yoCM with a PMH of a-fib, NIDDMII, hypothyroidism, TIA who presented to the ER with a CC of left leg swelling times 6 days. He states he was seen by his primary care doctor and was scheduled for an outpatient ultrasound but his thought he was doing worse so brought him to the emergency room. He was found to have significant lower extremity edema and a BNP of 12k. He was also found to be in a-fib with RVR. Reportedly he is supposed to be on amiodarone but quit taking it. He seems to be noncompliant with most of his medications as he has not been taking his metformin either. He is a somewhat poor historian and attempts to compensate for recollection issues with humor. He states he is feeling well and isn't sure why he is in the hospital but when directly asked about symptoms he endorses SOB, orthopnea, and palpitations. He states his heart rate is normally 120s at home. Subjective/Events-last exam Pt reports feeling "terrible." When asked how he felt terrible he was unable to describe. He did state that he is having diarrhea and states he was told he was supposed to be constipated. He cannot tell me who told him he should be constipated. He otherwise has no specific complaints. When asked about his leg swelling though he does endorse that it is still present. Objective Exam Vital Signs Vital Signs Date Time Temp Pulse Resp B/P (MAP) Pulse Ox O2 Delivery O2 Flow Rate FiO2 09/30/18 16:00 92 15 111/83 (92) 96 Room Air 09/30/18 14:57 2.00 09/30/18 11:00 96.2 Capillary Refill : Less Than 3 Seconds General Appearance: No Apparent Distress, Chronically ill Respiratory: No Accessory Muscle Use, No Respiratory Distress, Decreased Breath Sounds Cardiovascular: No Murmur, Normal Peripheral Pulses, Irregularly Irregular Gastrointestinal: Normal Bowel Sounds, Non Tender, Soft Extremity: Swelling (2+ to calf on left leg, 1+ to ankle on right leg) Neurologic/Psychiatric: Alert, Other (oriented to self and place only) Skin: Normal Color, Warm/Dry Results/Procedures Lab Laboratory Tests 09/30/18 03:25 Patient resulted labs reviewed. Assessment/Plan Assessment and Plan Assess & Plan/Chief Complaint Afib with RVR, CHF Exacerbation Diagnosis/Problems Diagnosis/Problems (1) Atrial fibrillation with rapid ventricular response Status: Acute Assessment & Plan: Rate improved, on oral cardizem Patient declines anticoagulation due to history of GI bleed- on ASA only Cardiology consulted, appreciate recs (2) Congestive heart failure Status: Acute Assessment & Plan: Continue IV Lasix as able for BP Echo reveals 30% with global LV hypokinesis, elevated PA pressure, and mod mitral regurg Cardiology consulted Monitor i/os Did not tolerate Davidson Qualifiers: Heart failure type: systolic Heart failure chronicity: acute on chronic Qualified Codes: I50.23 - Acute on chronic systolic (congestive) heart failure (3) Hypothyroidism Status: Chronic Assessment & Plan: Resume home synthroid TSH normal Qualifiers: Hypothyroidism type: unspecified Qualified Codes: E03.9 - Hypothyroidism, unspecified (4) Non-insulin dependent type 2 diabetes mellitus Assessment & Plan: Only takes metformin prn and is on glyburide Will hold both and monitor blood sugars Fasting BS is 90 this AM sliding scale insulin (5) Elevated troponin Status: Acute Assessment & Plan: Mildly elevated troponin at outside ER Now trending down Cardiology consulted (6) CKD (chronic kidney disease) Assessment & Plan: Unsure of baseline but patient reports history of CKD Trend, mildly up today Qualifiers: Chronic kidney disease stage: stage 2 (mild) Qualified Codes: N18.2 - Chronic kidney disease, stage 2 (mild) (7) Elevated d-dimer Status: Acute Assessment & Plan: Doppler of left lower extremity negative Clinical Quality Measures DVT/VTE Risk/Contraindication: Risk Factor Score Per Nursin RFS Level Per Nursing on Admit: 4+=Very High HELDER ROMAN MD Sep 30, 2018 07:57
[2018-09-30] MEDS ORDERED: LOPERAMIDE 2 MG (IMODIUM) CAP PO PRN (08:00)
[2018-09-30] MEDS: TAMSULOSIN 0.4 MG (FLOMAX) CAP PO SCH ×2 (08:22→20:24)
[2018-09-30] MEDS: predniSONE 5 MG TAB PO SCH (08:23)
--- NOTE | 2018-09-30 08:52 | Progress Note-Cardiology ---
Cardiology SOAP Progress Note Subjective: Less short of breath No cp Gen malaise present Exertional shortness of breath present No palp or syncope Notes chronic dysuria Objective: I&O/Vital Signs 09/29/18 09/29/18 09/29/18 09/29/18 21:00 21:17 22:00 23:00 Pulse 89 111 89 Resp 14 14 15 B/P (MAP) 103/69 (80) 132/77 (95) 124/63 (83) Pulse Ox 99 97 100 O2 Delivery Nasal Cannula Nasal Cannula Nasal Cannula Nasal Cannula O2 Flow Rate 2.00 2.00 2.00 2.00 09/29/18 09/30/18 09/30/18 09/30/18 23:05 00:00 00:25 01:00 Temp 98.0 Pulse 87 80 Resp 25 29 B/P (MAP) 109/76 (87) 111/73 (86) Pulse Ox 95 100 100 O2 Delivery Nasal Cannula Nasal Cannula Nasal Cannula O2 Flow Rate 2.00 2.00 2.00 09/30/18 09/30/18 09/30/18 09/30/18 01:00 02:00 03:00 03:05 Temp 98.6 Pulse 94 84 84 Resp 30 13 B/P (MAP) 104/78 (87) 95/75 (82) Pulse Ox 100 100 100 O2 Delivery Nasal Cannula Nasal Cannula Nasal Cannula O2 Flow Rate 2.00 2.00 2.00 09/30/18 09/30/18 09/30/18 09/30/18 04:00 04:35 05:00 06:00 Pulse 78 78 70 64 Resp 23 20 21 B/P (MAP) 108/72 (84) 99/60 (73) 95/63 (74) Pulse Ox 100 100 100 98 O2 Delivery Nasal Cannula Nasal Cannula Nasal Cannula O2 Flow Rate 2.00 2.00 2.00 09/30/18 09/30/18 09/30/18 07:00 07:00 08:30 Pulse 65 60 66 Resp 17 17 B/P (MAP) 94/59 (71) 88/74 (79) Pulse Ox 96 100 O2 Delivery Nasal Cannula Nasal Cannula O2 Flow Rate 2.00 2.00 09/30/18 00:00 Intake Total 450 ml Output Total 900 ml Balance -450 ml Weight (Pounds): 176 Weight (Ounces): 7.0 Weight (Calculated Kilograms): 80.716556 Constitutional: AAO x 3, well-developed, well-nourished Respiratory: No accessory muscle use, No respiratory distress; chest expansion is symmetric, chest is bilaterally symmetric, crackles (lower lobes bilat) Cardiovascular: irregularly irregular; No JVD; systolic murmur Gastrointestional: No tender; round, audible bowel sounds Extremities: other (LLE swelling, mod) Neurologic/Psychiatric: oriented x 3, grossly intact Skin: No rash, No ulcerations; other (bruising at the umbilicus) Results/Procedures: Labs Laboratory Tests 09/29/18 10:15: White Blood Count 8.5, Red Blood Count 4.17L, Hemoglobin 12.0L, Hematocrit 38L, Mean Corpuscular Volume 91, Mean Corpuscular Hemoglobin 29, Mean Corpuscular Hemoglobin Concent 32, Red Cell Distribution Width 14.5, Platelet Count 197, Mean Platelet Volume 10.5H, Neutrophils (%) (Auto) 76H, Lymphocytes (%) (Auto) 11L, Monocytes (%) (Auto) 9, Eosinophils (%) (Auto) 3, Basophils (%) (Auto) 1, Neutrophils # (Auto) 6.5, Lymphocytes # (Auto) 1.0, Monocytes # (Auto) 0.8, Eosinophils # (Auto) 0.2, Basophils # (Auto) 0.1, Prothrombin Time 14.9H, INR Comment 1.2, D-Dimer 1.73H, Sodium Level 132L, Potassium Level 4.3, Chloride Level 96L, Carbon Dioxide Level 26, Anion Gap 10, Blood Urea Nitrogen 20H, Creatinine 1.35H, Estimat Glomerular Filtration Rate 51, BUN/Creatinine Ratio 15 , Glucose Level 93, Calcium Level 8.3L, Corrected Calcium 8.5, Total Bilirubin 0.8, Aspartate Amino Transf (AST/SGOT) 25, Alanine Aminotransferase (ALT/SGPT) 20, Alkaline Phosphatase 84, Troponin T 130*H, B-Type Natriuretic Peptide 00320.0H, Total Protein 6.1L, Albumin 3.8, Lipase 22 09/29/18 12:05: Glucometer 91 09/29/18 13:00: Urine Color YELLOW, Urine Clarity CLEAR, Urine pH 5.5, Urine Specific [place] < 1.005, Urine Protein TRACE, Urine Glucose (UA) NEGATIVE, Urine Ketones NEGATIVE , Urine Nitrite NEGATIVE, Urine Bilirubin NEGATIVE, Urine Urobilinogen 0.2, Urine Leukocyte Esterase NEGATIVE, Urine RBC (Auto) NEGATIVE, Urine RBC NONE, Urine WBC NONE, Urine Squamous Epithelial Cells 0-2, Urine Crystals NONE, Urine Bacteria NONE, Urine Casts NONE, Urine Mucus NEGATIVE, Urine Culture Indicated NO 09/29/18 15:50: Troponin I 0.084H 09/29/18 18:15: Troponin I 0.079H 09/29/18 21:04: Glucometer 129H 09/30/18 03:25: White Blood Count 9.2, Red Blood Count 3.77L, Hemoglobin 10.6L, Hematocrit 33L, Mean Corpuscular Volume 88, Mean Corpuscular Hemoglobin 28, Mean Corpuscular Hemoglobin Concent 32, Red Cell Distribution Width 14.9H, Platelet Count 176, Mean Platelet Volume 10.3, Neutrophils (%) (Auto) 79H, Lymphocytes (%) (Auto) 9L , Monocytes (%) (Auto) 10, Eosinophils (%) (Auto) 2, Basophils (%) (Auto) 1, Neutrophils # (Auto) 7.2, Lymphocytes # (Auto) 0.9L, Monocytes # (Auto) 0.9, Eosinophils # (Auto) 0.2, Basophils # (Auto) 0.1, Sodium Level 134L, Potassium Level 4.4, Chloride Level 103, Carbon Dioxide Level 20L, Anion Gap 11, Blood Urea Nitrogen 21H, Creatinine 1.52H, Estimat Glomerular Filtration Rate 45, BUN/ Creatinine Ratio 14, Glucose Level 90, Calcium Level 8.3L, Corrected Calcium 8.9 , Phosphorus Level 3.5, Magnesium Level 1.6L, Total Bilirubin 1.0, Aspartate Amino Transf (AST/SGOT) 28, Alanine Aminotransferase (ALT/SGPT) 21, Alkaline Phosphatase 72, B-Type Natriuretic Peptide 991.7H, Total Protein 5.1L, Albumin 3.2, Triglycerides Level 64, Cholesterol Level 136, LDL Cholesterol Direct 76, VLDL Cholesterol 13, HDL Cholesterol 49, Thyroid Stimulating Hormone (TSH) 4.11 Laboratory Tests 09/29/18 10:15 09/30/18 03:25 A/P: Assessment: Chronic a-fib (pt reports 30 years) - rate controlled LLE swelling of undetermined etiology, no Doppler evidence of DVT on 09/29/18 Mild troponin elevation, likely due to transient hypotension and hypoxemia. 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 He wants the lower dose of apixaban SAMANTHA LOYOLA MD FACP FAC CCDS Sep 30, 2018 08:51
[2018-09-30] MEDS ORDERED: DILTIAZEM 240 MG (CARDIZEM CD) CAP PO SCH (09:00)
[2018-09-30] MEDS ORDERED: DIGOXIN 0.25 MG (LANOXIN) TAB PO SCH (09:00)
[2018-09-30] MEDS ORDERED: ASPIRIN E.C. 325 MG (ECOTRIN) TABLET PO SCH (09:00)
--- NOTE | 2018-09-30 09:15 | ST Cognitive Linguistic Eval ---
Speech Evaluation-General Medical Diagnosis A-fib with RVR Onset Date: Sep 29, 2018 Therapy Diagnosis Therapy Diagnosis: Cognitive-Communication Precautions Precautions/Isolations: Fall Prevention, Standard Precautions Social History Current Living Status: Alone Speech PLF-Current Status Prior Level of Function Patient lived alone and was independent for most of his daily needs. He has good family support as needed. Subjective Patient was pleasant and attentive during the evaluation. Language Eval: Auditory Comprehends Simple Yes/No Ques: Functional Follows 1-Step Commands: Functional Follows Complex Directions: Functional Follows General Conversations: Functional Language Eval: Verbal Language Completes Spontaneous Greeting: Functional Produces Auto, Serial Info: Functional Imitates Simple Words/Phrases: Functional Word Finding: Functional Requests Basic Needs: Functional States Basic Personal Info: Functional Expresses Complex Ideas: Functional Cognitive Patient Orientation Alert and oriented x3. The patient states for a couple of years he was really "out of it" then a change in medication was as if a light switch had been turned on and his memory came back. Objective Cognitive Domain Attention: WNL Memory: WNL Problem Solving: Functional Executive Functions: WNL Objective Formal/Standardized Tests [facility] Cognitive/Communication Results Memory: Immediate 3/3, Delayed with verbal cues 3/3, Orientation: 5/5, Problem Solving: Simple 5/5, Complex 5/5, Auditory Processin/5 Oral Motor/Speech Production Patient was edentulous, however his speech was intelligible. Impression Patient is a 78 year old male who was able to recall information related to this hospitalization admit. The evaluation was completed with the patient. Results indicate the patient is within normal range for all areas of cognition at this time. Patient is not recommended for skilled ST at this time. Speech-Plan Patient/Family Goals Patient/Family Goals: Patient plans to return home with good family support upon hospital discharge. Treatment Plan Speech Therapy Treatment Plan: Discontinue ST Patient's level of cognition does not warrant skilled ST at this time. Treatment Duration: Sep 30, 2018 Frequency: 1 time per week Estimated Hrs Per Day: .25 hour per day Rehab Potential: Good Barriers to Learning: None identified. Pt/Family Agrees to Plan: Yes Safety Risks/Education Teaching Recipient: Patient, Family Teaching Methods: Discussion Response to Teaching: Verbalize Understanding Education Topics Provided: Safety within his room. Time Speech Therapy Time In: 08:15 Speech Therapy Time Out: 08:30 Total Billed Time: 15 Billed Treatment Time 1, SPSNDCOMP CAR Ayoub Sep 30, 2018 09:15
[2018-09-30] MEDS: RT-ALBUTEROL SULF 2.5 MG/3 ML PRE-MIX VIAL INH SCH ×3 (09:30→20:19)
[2018-09-30] MEDS: DIGOXIN 0.25 MG (LANOXIN) TAB PO SCH (09:32)
[2018-09-30] MEDS: APIXABAN 2.5 MG (ELIQUIS) TABLET PO SCH ×2 (09:32→20:24)
--- NOTE | 2018-09-30 11:19 | Physical Therapy Evaluation ---
PT Evaluation-General Medical Diagnosis Admission Date Sep 29, 2018 at 12:19 Medical Diagnosis: A-fib with RVR Onset Date: Sep 29, 2018 Therapy Diagnosis Therapy Diagnosis: decreased mobility, weakness Height/Weight Height (Feet): 5 Height (Inches): 7.00 Weight (Pounds): 176 Weight (Ounces): 7.0 Precautions Precautions/Isolations: Fall Prevention, Standard Precautions Weight Bear Status Right Lower Extremity: Right Weight Bearing/Tolerated Left Lower Extremity: Left Weight Bearing/Tolerated Referral Physician: Dr. Casiano Reason for Referral: Evaluation/Treatment Medical History Pertinent Medical History: Atrial Fib, DM, Hypothroidism Additional Medical History TIA, NIDDMII Current History Pt presents to ER with c/o of palpitations, abdominal pain and nausea, and L LE swelling for 5 days. Reviewed History: Yes Social History Home: Single Level Current Living Status: Alone Entry Into Home: Stairs With Railing PT Steps Into Home: 3 Prior/Core FIM Prior Level of Function Therapy Code Descriptions/Definitions Functional [place] Measure: 0=Not Assessed/NA 4=Minimal Assistance 1=Total Assistance 5=Supervision or Setup 2=Maximal Assistance 6=Modified [place] 3=Moderate Assistance 7=Complete [place] Therapy Quality Codes: 6 Independent with activity with or without an assistive device 5 Patient requires set up or clean up by helper. Patient completes activity by themselves 4 Supervision or touching assist (CGA). [place] provide cues , steadying assist 3 The helper provides less than half the effort to complete the activity 2 The helper provides more than half the effort to complete the activity 1 Dependent. The helper does all the effort to complete an activity 7 Patient refused to complete or attempt activity 9 The patient did not perform the activity before the current illness or injury 88 Not attempted due to Medical conditions or safety concerns Functional Abilities and Goals: Independent: Patient completed the activities by him/herself, with or without an assistive device, with no assistance from a helper. Needed Some Help: Patient needed partial assistance from another person to complete activities. Dependent: A helper completed the activities for the patient. Unknown: Not Applicable: Bed Mobility: 7 Transfers (B,C,W/C) (FIM): 7 Gait: 7 Stairs: 7 Indoor Mobility (Ambulation): Independent Stairs: Independent Prior Devices Use: Walker Prior Device Use: FWW Doesn't use FWW normally but has it. PT Evaluation-Current Subjective Pt in recliner with daughter in room and agrees to PT. Pt does reports that he still has L LE swelling and it is visible by SPT. Pt/Family Goals Pt to return home. Objective Patient Orientation: Person, Place, Situation, Normal For Age ROM/Strength ROM Lower Extremities WNL Strength Lower Extremities gross motor bilateral (4-/5) Integumentary/Posture Bowel Incontinence: No Bladder Incontinence: No Neuromuscular (Tone, Coordination, Reflexes) NT Sensory Vision: Functional Hearing: Impaired Sensation Right Lower Extremit: Intact Sensation Left Lower Extremity: Intact Transfers Therapy Code Descriptions/Definitions Functional [place] Measure: 0=Not Assessed/NA 4=Minimal Assistance 1=Total Assistance 5=Supervision or Setup 2=Maximal Assistance 6=Modified [place] 3=Moderate Assistance 7=Complete [place] Transfers (B, C, W/C) (FIM): 5 Scootin Rollin Supine to/from Sit: 5 Sit to/from Stand: 5 Gait Mode of Locomotion: Walk Anticipated Mode of Locomotion: Walk Gait (FIM): 4 Distance (FIM): 3=150 ft Distance: 150' Gait Level of Assist: 4 Gait Persons Needed: 1 Gait Assistive Device: FWW Comments/Gait Description Pt requires VC to keep FWW back with pt. Balance Sitting Static: Good Sitting Dynamic: Good Standing Static: Good Standing Dynamic: Good Assessment/Needs Pt able to perform sit<>stand transfers from recliner to FWW with SBA. Pt amb with FWW 150' with CGA for safety. Pt reports fatigue at end of amb. Pt returns to room and requests to get back in bed. Pt is SBA with all bed mobility. SPT connect telemetry other connections back. Pt has all needs met and daughter is room. PT to increase pt activity as pt is able to tolerate. Rehab Potential: Good Post Rehab Potential-Barriers: co-morbidities PT Short Term Goals Short Term Goals Time Frame: Oct 07, 2018 Transfers (B,C,W/C) (FIM): 7 Gait (FIM): 6 Distance (FIM): 3=150 ft Gait Distance Comment: 200' Gait Level of Assist: 6 Gait Assistive Device: FWW PT Plan Problem List Problem List: Activity Tolerance, Functional Strength, Safety, Balance, Gait, Transfer, Bed Mobility, ROM Treatment/Plan Treatment Plan: Continue Plan of Care Treatment Plan: Bed Mobility, Education, Functional Activity Kun, Functional Strength, Gait, Safety, Therapeutic Exercise, Transfers Treatment Duration: Oct 07, 2018 Frequency: 6 times per week Estimated Hrs Per Day: .25 hour per day Patient and/or Family Agrees t: Yes Safety Risks/Education Patient Education: Gait Training, Transfer Techniques, Correct Positioning, Safety Issues Teaching Recipient: Patient, Family Teaching Methods: Demonstration, Discussion Discharge Recommendations Therapy D/C Recommendations: Home w/ Family Support, Home Independently Time/GCodes Time In: 1023 Time Out: 1034 Total Billed Treatment Time: 11 Total Billed Treatment 1 visit EVL 11 min ART SEYMOUR PT Sep 30, 2018 11:19
--- NOTE | 2018-09-30 13:08 | NUR ---
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 After expressing blessings of pt's recovery, he said, "No, I think I'm about done. I am at peace, I'm okay." Offered active listening and provided safe place for free expression of thoughts and feelings.
--- NOTE | 2018-09-30 14:46 | Pulmonary Consultation ---
History of Present Illness History of Present Illness Date of Consultation 09/30/18 14:41 Date of Admission Allergies and Home Medications Allergies Coded Allergies: No Known Drug Allergies (Unverified , 09/29/18) Home Medications Albuterol Sulfate 1 Puff Puff, 2 PUFF IH Q4H PRN for SHORTNESS OF BREATH, ( Reported) Albuterol Sulfate 2.5 Mg/3 Ml Vial.neb, 2.5 MG NEB Q4H PRN for SHORTNESS OF BREATH, (Reported) Ascorbic Acid 500 Mg Tablet, 500 MG PO BID, (Reported) Aspirin 325 Mg Tablet.dr, 325 MG PO DAILY, (Reported) Benzonatate 200 Mg Capsule, 200 MG PO TID PRN for COUGH, (Reported) Donepezil HCl 10 Mg Tablet, 10 MG PO HS, (Reported) Doxycycline Hyclate 100 Mg Capsule, 100 MG PO HS, (Reported) Famotidine 20 Mg Tablet, 20 MG PO BID PRN for INDIGESTION, (Reported) Glipizide 10 Mg Tab.er.24, 10 MG PO DAILY, (Reported) Levothyroxine Sodium 25 Mcg Tablet, 25 MCG PO DAILY, (Reported) Metformin HCl 750 Mg Tab.er.24h, 750 MG PO DAILY PRN for HYPERGLYCEMIA, ( Reported) Oxymetazoline HCl 30 Ml [place], 1 SPRAY NS DAILY PRN for CONGESTION, (Reported) Prednisone 5 Mg Tablet, 5 MG PO DAILY, (Reported) Tamsulosin HCl 0.4 Mg Cap.er.24h, 0.4 MG PO BID, (Reported) Past Itntfrb-Yivhyv-Xmvtex Hx Past Med/Social Hx: Reviewed Nursing Past Med/Soc Hx Patient Social History Alcohol Use: Denies Use Recreational Drug Use: No Smoking Status: Never a Smoker 2nd Hand Smoke Exposure: No Recent Foreign Travel: No Contact w/Someone Who Travel: No Recent Infectious Disease Expo: No Recent Hopitalizations: No Physical Abuse: No Sexual Abuse: No Mistreated: No Fear: No Immunizations Up To Date Date of Pneumonia Vaccine: Sep 29, 2017 Seasonal Allergies Seasonal Allergies: No Past Medical History Surgeries: No Respiratory: No Cardiac: Yes Atrial Fibrillation, Hypotension Neurological: Yes TIA Genitourinary: Yes (Prostatitis) Renal Failure Gastrointestinal: No Musculoskeletal: No Endocrine: Yes Diabetes, Non-Insulin dep HEENT: No Cancer: No Psychosocial: No Integumentary: No Blood Disorders: No Adverse Reaction/Blood Tranf: No Family Medical History Reviewed Nursing Family Hx No Pertinent Family Hx Sepsis Event Evaluation Height, Weight, BMI Height: 5'7.00" Weight: 176lbs. 7.0oz. 80.620480me; 25.1 BMI Method:Stated Exam Exam Vital Signs Date Time Temp Pulse Resp B/P (MAP) Pulse Ox O2 Delivery O2 Flow Rate FiO2 09/30/18 14:00 84 28 125/81 (96) 97 Room Air 09/30/18 13:00 109 19 141/80 (100) 86 Room Air 09/30/18 13:00 86 09/30/18 12:09 89 16 117/84 (95) 93 Room Air 09/30/18 12:00 100 Nasal Cannula 2.00 09/30/18 11:00 96.2 92 29 117/84 (95) 93 Room Air 09/30/18 10:00 76 16 99/71 (80) 98 Nasal Cannula 2.00 09/30/18 09:31 Nasal Cannula 2.00 09/30/18 09:00 74 12 100/68 (79) 99 Nasal Cannula 2.00 09/30/18 08:30 66 17 88/74 (79) 100 Nasal Cannula 2.00 09/30/18 08:00 100 Nasal Cannula 2.00 09/30/18 07:00 60 17 94/59 (71) 96 Nasal Cannula 2.00 09/30/18 07:00 65 09/30/18 06:00 64 21 95/63 (74) 98 Nasal Cannula 2.00 09/30/18 05:00 70 20 99/60 (73) 100 Nasal Cannula 2.00 09/30/18 04:35 78 100 09/30/18 04:00 78 23 108/72 (84) 100 Nasal Cannula 2.00 09/30/18 03:05 100 Nasal Cannula 2.00 09/30/18 03:00 98.6 84 13 95/75 (82) 100 Nasal Cannula 2.00 09/30/18 02:00 84 30 104/78 (87) 100 Nasal Cannula 2.00 09/30/18 01:00 94 09/30/18 01:00 80 29 111/73 (86) 100 Nasal Cannula 2.00 09/30/18 00:25 98.0 09/30/18 00:00 87 25 109/76 (87) 100 Nasal Cannula 2.00 09/29/18 23:05 95 Nasal Cannula 2.00 09/29/18 23:00 89 15 124/63 (83) 100 Nasal Cannula 2.00 09/29/18 22:00 111 14 132/77 (95) 97 Nasal Cannula 2.00 09/29/18 21:17 Nasal Cannula 2.00 09/29/18 21:00 89 14 103/69 (80) 99 Nasal Cannula 2.00 09/29/18 20:00 93 Nasal Cannula 2.00 09/29/18 20:00 72 17 103/81 (88) 97 Nasal Cannula 2.00 09/29/18 19:40 97.7 87 21 100/72 (81) 93 Nasal Cannula 2.00 09/29/18 19:00 97 18 109/92 (98) 95 Nasal Cannula 2.00 09/29/18 19:00 75 09/29/18 18:00 113 18 83/63 (70) Nasal Cannula 2.00 09/29/18 17:00 116 17 128/111 (117) 98 Nasal Cannula 2.00 09/29/18 16:15 98 27 124/83 (97) 98 Nasal Cannula 2.00 09/29/18 16:00 93 Nasal Cannula 2.00 09/29/18 16:00 101 19 107/85 (92) 97 Nasal Cannula 2.00 09/29/18 15:45 105 15 108/70 (83) 98 Nasal Cannula 2.00 09/29/18 15:30 116 14 112/82 (92) 97 Nasal Cannula 2.00 09/29/18 15:15 116 18 131/85 (100) 98 Nasal Cannula 2.00 09/29/18 15:01 110 09/29/18 15:00 117 23 136/100 (112) Nasal Cannula 2.00 09/29/18 14:49 96 2.00 I & O 09/30/18 07:00 Intake Total 1925 ml Output Total 2100 ml Balance -175 ml Height & Weight Height: 5'7.00" Weight: 176lbs. 7.0oz. 80.426773kv; 25.1 BMI Method:Stated General Appearance: No Apparent Distress, Chronically ill Respiratory: No Accessory Muscle Use, No Respiratory Distress, Decreased Breath Sounds Cardiovascular: No Murmur, Normal Peripheral Pulses, Irregularly Irregular Capillary Refill: Less Than 3 Seconds Extremity: Swelling (2+ to calf on left leg, 1+ to ankle on right leg) Neurologic/Psychiatric: Alert, Other (oriented to self and place only) Skin: Normal Color, Warm/Dry Results Lab Laboratory Tests 09/29/18 10:15 09/30/18 03:25 Assessment/Plan Assessment/Plan Pulmonary edema -Lasix Atelectasis -IS -Increase activity Afib RVR -Cardizem gtt -Echo -ASA CHFAE EF 30% -Lasix Hypotension Hypotheyroid NIDDM CKD -Monitor ISMAEL BERNARDO DO Sep 30, 2018 14:46
--- NOTE | 2018-09-30 15:46 | Occupational Therapy Eval ---
OT Evaluation-General/PLF Medical Diagnosis Admission Date Sep 29, 2018 at 12:19 Medical Diagnosis: A-fib with RVR Onset Date: Sep 29, 2018 Therapy Diagnosis Therapy Diagnosis: weakness Height/Weight Height (Feet): 5 Height (Inches): 7.00 Weight (Pounds): 176 Weight (Ounces): 7.0 Precautions Precautions/Isolations: Fall Prevention, Standard Precautions Safety Interventions: None Weight Bear Status Weight Bearing Restriction: Full Weight Bearing Location Restriction: L LE, R LE Referral Physician: Dr. Casiano Referral Reason: Activity Tolerance, Self Care, Evaluation/Treatment, Strengthening/ROM Medical History Pertinent Medical History: Atrial Fib, DM, Hypothroidism Current History 78 yrs old W/M admitted to ER due to c/o swelling in Left Leg since 6 days, & SOB Reviewed History: Yes Social History Home: Single Level Current Living Status: Alone Entry Into Home: Stairs With Railing Steps Into Home: 3 ADL-Prior Level of Function Therapy Code Descriptions/Definitions Functional [place] Measure: 0=Not Assessed/NA 4=Minimal Assistance 1=Total Assistance 5=Supervision or Setup 2=Maximal Assistance 6=Modified [place] 3=Moderate Assistance 7=Complete [place] Therapy Quality Codes: 6 Independent with activity with or without an assistive device 5 Patient requires set up or clean up by helper. Patient completes activity by themselves 4 Supervision or touching assist (CGA). [place] provide cues , steadying assist 3 The helper provides less than half the effort to complete the activity 2 The helper provides more than half the effort to complete the activity 1 Dependent. The helper does all the effort to complete an activity 7 Patient refused to complete or attempt activity 9 The patient did not perform the activity before the current illness or injury 88 Not attempted due to Medical conditions or safety concerns Functional Abilities and Goals: Independent: Patient completed the activities by him/herself, with or without an assistive device, with no assistance from a helper. Needed Some Help: Patient needed partial assistance from another person to complete activities. Dependent: A helper completed the activities for the patient. Unknown: Not Applicable: ADL PLOF Comments Pt , lives alone at home & was Independent in all ADLs & mobility Self Care: Independent Functional Cognition: Independent DME/Equipment: Grab Bars OT Current Status Subjective Pt in bed, alert, oriented, cooperative , & agree for OT assessment . Pain Location: No Pain Reported Mental Status/Objective Patient Orientation: Person, Place, Time, Situation, Normal For Age Attachments: Central Line, IV, Oxygen, Saline Lock, SCD's, Telemetry Current Glasses/Contacts: Yes Hand Dominance: Right Upper Extremity ROM WFL Upper Extremity Coordination Intact Upper Extremity Sensation Intact Upper Extremity Strength MS in BUE -4/5 grossly graded. ADL-Treatment ADL-Current Pt needs SBA in supine to sit in bedside & SBA sit to stand with FWW. Pt unsteady balance due to weakness & dizziness. MS in BUE -4/5 grossly graded. Mild swelling in Lf Leg. Therapy Code Descriptions/Definitions Functional [place] Measure: 0=Not Assessed/NA 4=Minimal Assistance 1=Total Assistance 5=Supervision or Setup 2=Maximal Assistance 6=Modified [place] 3=Moderate Assistance 7=Complete [place] Therapy Quality Codes: 6 Independent with activity with or without an assistive device 5 Patient requires set up or clean up by helper. Patient completes activity by themselves 4 Supervision or touching assist (CGA). [place] provide cues , steadying assist 3 The helper provides less than half the effort to complete the activity 2 The helper provides more than half the effort to complete the activity 1 Dependent. The helper does all the effort to complete an activity 7 Patient refused to complete or attempt activity 9 The patient did not perform the activity before the current illness or injury 88 Not attempted due to Medical conditions or safety concerns Eating (FIM): 7 Grooming (FIM): 5 Bathing (FIM): 0 Transfers (B, C, W/C) (FIM): 5 Toilet/Commode Transfer (FIM): 5 Tub Transfer (FIM): 0 Shower Transfer (FIM): 0 Education OT Patient Education: Correct positioning, Energy conservation, Safety issues Teaching Recipient: Patient Teaching Methods: Demonstration Response to Teaching: Verbalize Understanding OT Short Term Goals Short Term Goals Time Frame: Oct 14, 2018 Transfers (B,C,W/C) (FIM): 7 Additional Short Term Goals: 1-Demonstrate ADL Tasks, 2-Verbalize Understanding , 3-ImproveStrength/Kun 1=Demonstrate adherence to instructed precautions during ADL tasks. 2=Patient will verbalize/demonstrate understanding of assistive devices/ modifications for ADL. 3=Patient will improve strength/tolerance for activity to enable patient to perform ADL's. OT Residential Goals Online Services Manager Goals Time Frame: Oct 28, 2018 Eating (FIM): 7 Grooming(FIM): 7 Bathing(FIM): 7 Bathing Location: L Arm, R Arm, L Upper Leg, R Upper Leg, L Lower Leg ( including foot), R Lower Leg (including foot), Chest, Abdomen, Buttocks, Perineal Area Upper Body Dressing(FIM): 7 Lower Body Dressing(FIM): 7 Toileting(FIM): 7 Transfers (B,C,W/C) (FIM): 7 Toilet/Commode Transfer(FIM): 7 Tub Transfer(FIM): 7 Shower Transfer(FIM): 7 Additional Goals: 1-Demonstrate ADL Tasks, 2-Verbalize Understanding, 3- ImproveStrength/Kun 1=Demonstrate adherence to instructed precautions during ADL tasks. 2=Patient will verbalize/demonstrate understanding of assistive devices/ modifications for ADL. 3=Patient will improve strength/tolerance for activity to enable patient to perform ADL's. OT Education/Plan Problem List/Assessment Assessment: Decreased Activ Tolerance, Decreased Safety Aware, Decreased UE Strength, Dependent Transfers, Impaired Bed Mobility, Impaired Funct Balance, Impaired Self-Care Skills Discharge Recommendations Plan/Recommendations: Continue POC Therapy D/C Recommendations: Home w/ Family Support Equpiment Recommendations-D/C: Extended Bath Bench, Extended Shower Sprayer, Slurry Tank Operator Patient/Family Goals To return Home Independently with AD. Treatment Plan/Plan of Care Treatment,Training & Education: Yes Patient would benefit from OT for education, treatment and training to promote independence in ADL's, mobility, safety and/or upper extremity function for ADL' s. Plan of Care: ADL Retraining, Caregiver Training, Functional Mobility, UE Funct Exercise/Act, UE Neuromus Re-Ed/Coord Treatment Duration: Oct 28, 2018 Frequency: 5 times per week Estimated Hrs Per Day: .25 hour per day Rehab Potential: Good Time/GCodes Start Time: 14:20 Stop Time: 14:37 Total Time Billed (hr/min): 17 Billed Treatment Time 1, EVM 17 . Total 17 minutes. DAYAN HINSON OT Sep 30, 2018 15:46
--- NOTE | 2018-09-30 20:23 | NUR ---
Blood glucose 197 by accu check. Patient should get 3units at this time per sliding scale. Patient refused insulin.
[2018-09-30] MEDS: DONEPEZIL 10 MG (ARICEPT) TAB PO SCH (20:24)
[2018-09-30] MEDS: DOXYCYCLINE 100 MG (VIBRAMYCIN) TABLET PO SCH (20:24)
[2018-09-30] MEDS: BENZONATATE 100 MG (TESSALON) CAPSULE PO PRN (20:27)
[2018-10-01] VITALS (13 sets, daily range): BP systolic 84–150; BP diastolic 68–109
[2018-10-01] MEDS ORDERED: ACETAMINOPHEN 325 MG TABLET ONE (00:16)
[2018-10-01] MEDS: RT-ALBUTEROL SULF 2.5 MG/3 ML PRE-MIX VIAL INH SCH ×4 (02:51→19:29)
[2018-10-01 03:56] LABS: BASOPHILS % (AUTO) 0 % (0-10); EOSINOPHILS # (AUTO) 0.1 10^3/uL (0.0-0.3); EOSINOPHILS % (AUTO) 2 % (0-10); HEMATOCRIT 32 % (40-54); HEMOGLOBIN 10.1 G/DL (13.3-17.7); LYMPHOCYTES # (AUTO) 0.7 X 10^3 (1.0-4.0); LYMPHOCYTES % (AUTO) 9 % (12-44); MEAN CORPUSCULAR HEMOGLOBIN 28 PG (25-34); MEAN CORPUSCULAR HGB CONC 32 G/DL (32-36); MEAN CORPUSCULAR VOLUME 89 FL (80-99); MEAN PLATELET VOLUME 10.3 FL (7.4-10.4); MONOCYTES # (AUTO) 0.9 X 10^3 (0.0-1.0); MONOCYTES % (AUTO) 12 % (0-12); NEUTROPHILS # (AUTO) 5.9 X 10^3 (1.8-7.8); NEUTROPHILS % (AUTO) 77 % (42-75); PLATELET COUNT 177 10^3/uL (130-400); RED CELL DISTRIBUTION WIDTH 14.6 % (10.0-14.5); WHITE BLOOD COUNT 7.6 10^3/uL (4.3-11.0)
[2018-10-01 04:16] LABS: BUN/CREATININE RATIO 13; CALCIUM 8.2 MG/DL (8.5-10.1); CARBON DIOXIDE 21 MMOL/L (21-32); CHLORIDE 104 MMOL/L (98-107); CREATININE SERUM 1.82 MG/DL (0.60-1.30); GFR ESTIMATED 36; GLUCOSE 87 MG/DL (70-105); MAGNESIUM 2.1 MG/DL (1.8-2.4); PHOSPHORUS 3.7 MG/DL (2.3-4.7); POTASSIUM 4.2 MMOL/L (3.6-5.0); SODIUM 134 MMOL/L (135-145)
[2018-10-01] MEDS: POTASSIUM CL 10MEQ/50ML IVPB 50 ML IV SCH (04:38)
[2018-10-01] MEDS: MAGNESIUM 1 GM/100 ML IVPB 100 ML IV SCH (04:39)
[2018-10-01] MEDS: inSUlin ASPART (NovoLOG) 1 UNIT/0.01 ML (CHARGE PER UNIT) SC SCH ×4 (04:39→20:30)
[2018-10-01] MEDS: KCL 20 MEQ TAB (K-DUR) PO SCH ×2 (04:39→06:12)
--- NOTE | 2018-10-01 05:04 | Pulmonary Progress Note ---
Subjective Time Seen by a Provider: 05:08 Subjective/Events-last exam Denies SOB, CP. Sepsis Event Evaluation Height, Weight, BMI Height: 5'7.00" Weight: 176lbs. 7.0oz. 80.395361pp; 25.1 BMI Method:Stated Exam Exam Vital Signs Date Time Temp Pulse Resp B/P (MAP) Pulse Ox O2 Delivery O2 Flow Rate FiO2 10/01/18 04:00 104 19 122/85 (97) 93 Nasal Cannula 2.00 10/01/18 03:45 98 Nasal Cannula 2.00 10/01/18 03:45 97.7 10/01/18 03:00 99 17 106/69 (81) 98 Nasal Cannula 2.00 10/01/18 02:00 97 16 124/98 (107) 97 Nasal Cannula 2.00 10/01/18 01:00 109 10/01/18 01:00 102 11 84/68 (73) 98 Nasal Cannula 2.00 10/01/18 00:00 96 Nasal Cannula 2.00 10/01/18 00:00 98.6 96 18 106/80 (89) 96 Nasal Cannula 2.00 09/30/18 23:00 93 14 89/63 (72) 99 Nasal Cannula 2.00 09/30/18 22:55 Nasal Cannula 2.00 09/30/18 22:00 101 16 94/71 (79) 92 Room Air 09/30/18 21:00 96 12 116/74 (88) 92 Room Air 09/30/18 20:19 94 Nasal Cannula 2.00 09/30/18 20:00 93 Room Air 09/30/18 20:00 100 20 106/69 (81) 93 Room Air 09/30/18 19:00 104 09/30/18 19:00 98.5 113 18 119/89 (99) 95 Room Air 09/30/18 16:00 97.2 09/30/18 16:00 100 Nasal Cannula 2.00 09/30/18 16:00 92 15 111/83 (92) 96 Room Air 09/30/18 15:00 89 27 101/66 (78) 98 Room Air 09/30/18 14:57 Nasal Cannula 2.00 09/30/18 14:00 84 28 125/81 (96) 97 Room Air 09/30/18 13:00 109 19 141/80 (100) 86 Room Air 09/30/18 13:00 86 09/30/18 12:09 89 16 117/84 (95) 93 Room Air 09/30/18 12:00 100 Nasal Cannula 2.00 09/30/18 11:00 96.2 92 29 117/84 (95) 93 Room Air 09/30/18 10:00 76 16 99/71 (80) 98 Nasal Cannula 2.00 09/30/18 09:31 Nasal Cannula 2.00 09/30/18 09:00 74 12 100/68 (79) 99 Nasal Cannula 2.00 09/30/18 08:30 66 17 88/74 (79) 100 Nasal Cannula 2.00 09/30/18 08:00 100 Nasal Cannula 2.00 09/30/18 07:00 60 17 94/59 (71) 96 Nasal Cannula 2.00 09/30/18 07:00 97.3 09/30/18 07:00 65 09/30/18 06:00 64 21 95/63 (74) 98 Nasal Cannula 2.00 09/30/18 05:00 70 20 99/60 (73) 100 Nasal Cannula 2.00 I & O 10/01/18 07:00 Intake Total 1415 ml Balance 1415 ml Height & Weight Height: 5'7.00" Weight: 176lbs. 7.0oz. 80.184241ba; 25.1 BMI Method:Stated General Appearance: No Apparent Distress, Chronically ill HEENT: Moist Mucous Membranes; No Scleral Icterus (L), No Scleral Icterus (R) Respiratory: No Accessory Muscle Use, No Respiratory Distress, Decreased Breath Sounds Cardiovascular: No Murmur, Irregularly Irregular Capillary Refill: Less Than 3 Seconds Extremity: No Calf Tenderness, No Pedal Edema Neurologic/Psychiatric: Alert, No Motor/Sensory Deficits, Normal Mood/Affect Skin: Normal Color, Warm/Dry Results Lab Laboratory Tests 09/29/18 10:15 09/30/18 03:25 10/01/18 03:20 Assessment/Plan Assessment/Plan Pulmonary edema with hypoxia -Oxygen -Lasix Atelectasis -IS -Increase activity Afib RVR - now controlled -ASA CHFAE EF 30% -Lasix CKD -Monitor Hypotension Hypotheyroid NIDDM CKD -Monitor ISMAEL BERNARDO DO Oct 01, 2018 05:04
[2018-10-01] MEDS: LEVOTHYROXINE 25 MCG (LEVOTHROID) TAB PO SCH (06:12)
[2018-10-01] MEDS: BENZONATATE 100 MG (TESSALON) CAPSULE PO PRN ×2 (06:12→21:54)
--- NOTE | 2018-10-01 07:30 | Progress Note-Hospitalist ---
Subjective HPI/CC On Admission Date Seen by Provider: Oct 01, 2018 Time Seen by Provider: 07:25 Pt is a 78yoCM with a PMH of a-fib, NIDDMII, hypothyroidism, TIA who presented to the ER with a CC of left leg swelling times 6 days. He states he was seen by his primary care doctor and was scheduled for an outpatient ultrasound but his thought he was doing worse so brought him to the emergency room. He was found to have significant lower extremity edema and a BNP of 12k. He was also found to be in a-fib with RVR. Reportedly he is supposed to be on amiodarone but quit taking it. He seems to be noncompliant with most of his medications as he has not been taking his metformin either. He is a somewhat poor historian and attempts to compensate for recollection issues with humor. He states he is feeling well and isn't sure why he is in the hospital but when directly asked about symptoms he endorses SOB, orthopnea, and palpitations. He states his heart rate is normally 120s at home. Subjective/Events-last exam Pt reports feeling poorly. Weak with cough. [place] clammy overnight. No sputum. Objective Exam Vital Signs Vital Signs Date Time Temp Pulse Resp B/P (MAP) Pulse Ox O2 Delivery O2 Flow Rate FiO2 10/01/18 06:00 112 20 126/99 (108) 94 Nasal Cannula 2.00 10/01/18 03:45 97.7 Capillary Refill : Less Than 3 Seconds General Appearance: No Apparent Distress, Chronically ill Respiratory: Lungs Clear, No Accessory Muscle Use, No Respiratory Distress; No Crackles Cardiovascular: No Murmur, Irregularly Irregular Gastrointestinal: Normal Bowel Sounds, Non Tender, Soft Extremity: No Calf Tenderness, Pedal Edema (trace) Neurologic/Psychiatric: Alert, Oriented x3, No Motor/Sensory Deficits, Normal Mood/Affect Skin: Normal Color, Warm/Dry Results/Procedures Lab Laboratory Tests 10/01/18 03:20 Patient resulted labs reviewed. Imaging: Reviewed Imaging Report Assessment/Plan Assessment and Plan Assess & Plan/Chief Complaint Afib with RVR, CHF Exacerbation Diagnosis/Problems Diagnosis/Problems (1) Atrial fibrillation with rapid ventricular response Status: Acute Assessment & Plan: Rate improved, on oral cardizem, digoxin Now agreeable to low dose eliquis- started yesterday Cardiology consulted, appreciate recs (2) Congestive heart failure Status: Acute Assessment & Plan: Continue lasix but switch to oral for creatinine elevation Continue BB and PARISH as able but having low BPs Echo reveals 30% with global LV hypokinesis, elevated PA pressure, and mod mitral regurg Cardiology consulted Incontinent and did not tolerate luis so I/Os inaccurate Reviewed CXR which appears worse though poor penetration and pt rotated Will get CT Chest noncontrast Qualifiers: Heart failure type: systolic Heart failure chronicity: acute on chronic Qualified Codes: I50.23 - Acute on chronic systolic (congestive) heart failure (3) Hypothyroidism Status: Chronic Assessment & Plan: Cont home synthroid TSH normal Qualifiers: Hypothyroidism type: unspecified Qualified Codes: E03.9 - Hypothyroidism, unspecified (4) CKD (chronic kidney disease) Assessment & Plan: Unsure of baseline but patient reports history of CKD Trended up again today Lasix switched to oral Qualifiers: Chronic kidney disease stage: stage 2 (mild) Qualified Codes: N18.2 - Chronic kidney disease, stage 2 (mild) (5) Non-insulin dependent type 2 diabetes mellitus Assessment & Plan: Only takes metformin prn and is on glyburide Will hold both and monitor blood sugars Fasting BS is 87 this AM sliding scale insulin Was elevated yesterday evening but declined insulin (6) Elevated troponin Status: Acute Assessment & Plan: Mildly elevated troponin but trended down Cardiology consulted (7) Elevated d-dimer Status: Acute Assessment & Plan: Doppler of left lower extremity negative Clinical Quality Measures DVT/VTE Risk/Contraindication: Risk Factor Score Per Nursin RFS Level Per Nursing on Admit: 4+=Very High HELDER ROMAN MD Oct 01, 2018 07:30
--- NOTE | 2018-10-01 08:39 | Progress Note-Cardiology ---
Cardiology SOAP Progress Note Subjective: Sitting up in bed. States did not have a good night. Increasing dyspnea overnight. Frequent cough. No c/o CP or palpitations. Objective: I&O/Vital Signs 09/30/18 09/30/18 09/30/18 09/30/18 21:00 22:00 22:55 23:00 Pulse 96 101 93 Resp 12 16 14 B/P (MAP) 116/74 (88) 94/71 (79) 89/63 (72) Pulse Ox 92 92 99 O2 Delivery Room Air Room Air Nasal Cannula Nasal Cannula O2 Flow Rate 2.00 2.00 10/01/18 10/01/18 10/01/18 10/01/18 00:00 00:00 01:00 01:00 Temp 98.6 Pulse 96 102 109 Resp 18 11 B/P (MAP) 106/80 (89) 84/68 (73) Pulse Ox 96 96 98 O2 Delivery Nasal Cannula Nasal Cannula Nasal Cannula O2 Flow Rate 2.00 2.00 2.00 10/01/18 10/01/18 10/01/18 10/01/18 02:00 03:00 03:45 03:45 Temp 97.7 Pulse 97 99 Resp 16 17 B/P (MAP) 124/98 (107) 106/69 (81) Pulse Ox 97 98 98 O2 Delivery Nasal Cannula Nasal Cannula Nasal Cannula O2 Flow Rate 2.00 2.00 2.00 10/01/18 10/01/18 10/01/18 10/01/18 04:00 05:00 06:00 07:00 Pulse 104 105 112 98 Resp 19 17 20 B/P (MAP) 122/85 (97) 102/72 (82) 126/99 (108) Pulse Ox 93 97 94 O2 Delivery Nasal Cannula Nasal Cannula Nasal Cannula O2 Flow Rate 2.00 2.00 2.00 10/01/18 10/01/18 07:00 08:00 Pulse 110 107 Resp 19 17 B/P (MAP) 134/109 (117) 120/78 (92) Pulse Ox 96 94 O2 Delivery Nasal Cannula Nasal Cannula O2 Flow Rate 2.00 2.00 10/01/18 00:00 Intake Total 930 ml Balance 930 ml Weight (Pounds): 177 Weight (Ounces): 2.0 Weight (Calculated Kilograms): 80.048972 Constitutional: AAO x 3, well-developed, well-nourished Respiratory: No accessory muscle use, No respiratory distress; chest expansion is symmetric, chest is bilaterally symmetric, crackles (lower lobes bilat), rhonchi (scattered) Cardiovascular: irregularly irregular; No JVD; systolic murmur Gastrointestional: No tender; round, audible bowel sounds Extremities: other (Mild bilat LE swelling) Neurologic/Psychiatric: oriented x 3, grossly intact Skin: No rash, No ulcerations; other (bruising at the umbilicus) Results/Procedures: Labs Laboratory Tests 09/30/18 10:57: Glucometer 210H 09/30/18 17:16: Glucometer 162H 09/30/18 20:22: Glucometer 197H 10/01/18 03:20: White Blood Count 7.6, Red Blood Count 3.60L, Hemoglobin 10.1L, Hematocrit 32L, Mean Corpuscular Volume 89, Mean Corpuscular Hemoglobin 28, Mean Corpuscular Hemoglobin Concent 32, Red Cell Distribution Width 14.6H, Platelet Count 177, Mean Platelet Volume 10.3, Neutrophils (%) (Auto) 77H, Lymphocytes (%) (Auto) 9L , Monocytes (%) (Auto) 12, Eosinophils (%) (Auto) 2, Basophils (%) (Auto) 0, Neutrophils # (Auto) 5.9, Lymphocytes # (Auto) 0.7L, Monocytes # (Auto) 0.9, Eosinophils # (Auto) 0.1, Basophils # (Auto) 0.0, Sodium Level 134L, Potassium Level 4.2, Chloride Level 104, Carbon Dioxide Level 21, Anion Gap 9, Blood Urea Nitrogen 23H, Creatinine 1.82H, Estimat Glomerular Filtration Rate 36, BUN/ Creatinine Ratio 13, Glucose Level 87, Calcium Level 8.2L, Phosphorus Level 3.7 , Magnesium Level 2.1, Digoxin Level < 0.30L Microbiology 09/29/18 MRSA Screen - Final, Complete MRSA not isolated Laboratory Tests 09/29/18 10:15 09/30/18 03:25 10/01/18 03:20 A/P: Assessment: Chronic a-fib (pt reports 30 years) - rate not well controlled Intolerant to BB and Cardizem secondary to hypotension LLE swelling of undetermined etiology, no Doppler evidence of DVT on 09/29/18 Mild troponin elevation, likely due to transient hypotension and hypoxemia. This does not appear to be Type 1 [place] H/O TIA's in the past Dilated cardiomyopathy with CHF, acute on chronic systolic Echo of 09/29/18: LVEF 30-35%, global hypokinesis, mod MR, mod TR, PASP 40 mmHg Reported h/o GI bleed in the past for which he has undergone endoscopy and no source was found (per pt) - until today, he refused any OAC other than full dose ASA DM II Reports h/o hypotension d/t medications in the past - exact details unknown Chronic back pain - states relatively inactive at home d/t pain Hypothyroidism - replacement tx Renal insufficiency - CKD 3, prob diabetic nephropathy; also consider post- obstructive uropathy (pt reports chronic urinary symptoms consistent with prostate enlargement) Plan: * Complex management due to multiple comorbidities * Worsening dyspnea overnight - CXR and CT of the chest pending * Diltiazem dc'd yesterday d/t hypotension * Dig for vent rate control - HR not well controlled, adjust dose as indicated * Low dose PARISH-inhib for dilated cm and systolic CHF * Reduce diuretics * Not suitable for bb at this time (low bp) * Monitor labs closely * We recommend Urology consult * I had a long and detailed discussion with him and his daughter regarding CV issues * Whereas he had previously refused OAC, he now agrees after we discussed all issues. He has agreed to the lower dose of apixaban TONY HOLLIDAY Oct 01, 2018 08:39
[2018-10-01] MEDS: DIGOXIN 0.25 MG (LANOXIN) TAB PO SCH (08:50)
[2018-10-01] MEDS: TAMSULOSIN 0.4 MG (FLOMAX) CAP PO SCH ×2 (08:50→20:25)
[2018-10-01] MEDS: APIXABAN 2.5 MG (ELIQUIS) TABLET PO SCH ×2 (08:50→20:24)
[2018-10-01] MEDS: predniSONE 5 MG TAB PO SCH (08:50)
[2018-10-01] MEDS: FUROSEMIDE 40 MG (LASIX) TAB PO SCH (08:51)
--- NOTE | 2018-10-01 08:54 | Diagnostic Imaging Report ---
INDICATION: Dyspnea. Comparison with 09/30/2018. FINDINGS: Cardiomegaly is again noted. Heart size is increased slightly. There has been development of left basilar effusion. Pulmonary venous congestion again is present. Bilateral interstitial infiltrates remain present. Right costophrenic angle is sharp. IMPRESSION: 1. Findings are consistent with chronic congestive failure with some increasing infiltrate and pleural effusion on the left. Dictated by: Dictated on workstation # [id number]
--- NOTE | 2018-10-01 09:47 | Diagnostic Imaging Report ---
PROCEDURE: CT chest without contrast. TECHNIQUE: Multiple contiguous axial images were obtained through the chest without the use of intravenous contrast. INDICATION: Shortness of breath COMPARISON: There are no prior CT chest examinations available for comparison. The plain film examination of the chest performed 09/30/2018 noted cardiomegaly, pulmonary congestion and left hilar, perihilar and right basilar infiltrates. FINDINGS: On this exam, the heart is enlarged. There are extensive coronary artery calcifications evident, as well. Furthermore, there is a pericardial effusion. The effusion measures 1.5 cm in maximum depth. As suggested on the plain film exam, there is atelectasis/infiltrate in the left perihilar region and in the right lung base. A small right pleural effusion is also noted. In addition, there is a small left pleural effusion. The upper lungs are generally clear. There is a small 3 mm nodule in the periphery of the right upper lobe. This finding is most likely a benign process. There is no mediastinal or hilar adenopathy. The thyroid gland, where visualized is generally unremarkable. The sections through the upper abdomen fail to show any evidence for an acute abnormality. There are multiple healed rib fractures bilaterally. There is also a severe 70-80% compression deformity of T10. A mild 10-20% compression deformity at the superior endplate of T5 is also noted. There is no acute bony abnormality appreciated. IMPRESSION: 1. There is cardiomegaly and mild pulmonary congestion and bilateral pneumonia/atelectasis and small bilateral pleural effusions. There is also a small pericardial effusion present. 2. There is no acute cardiopulmonary abnormality noted otherwise. 3. There are healed rib fractures bilaterally and there are long-standing compression deformities of T10 and T5. Dictated by: Dictated on workstation # [id number]
--- NOTE | 2018-10-01 12:03 | Physical Therapy Daily Note ---
PT Daily Note-Current Subjective Pt is in recliner by bed and daughter reports that she needs new bedding since pt has had lasix and is experiencing incontinence. Pt reports that he is too worn out and does not want to perform exercises. SPT explains that he can do seated ex and then he states "I will walk then. I won't wiggle my toes." Mental Status Patient Orientation: Person, Place Attachments: Oxygen (2L), Other-See Comments Telemetry Transfers Therapy Code Descriptions/Definitions Functional [place] Measure: 0=Not Assessed/NA 4=Minimal Assistance 1=Total Assistance 5=Supervision or Setup 2=Maximal Assistance 6=Modified [place] 3=Moderate Assistance 7=Complete [place] Therapy Quality Codes: 6 Independent with activity with or without an assistive device 5 Patient requires set up or clean up by helper. Patient completes activity by themselves 4 Supervision or touching assist (CGA). [place] provide cues , steadying assist 3 The helper provides less than half the effort to complete the activity 2 The helper provides more than half the effort to complete the activity 1 Dependent. The helper does all the effort to complete an activity 7 Patient refused to complete or attempt activity 9 The patient did not perform the activity before the current illness or injury 88 Not attempted due to Medical conditions or safety concerns Transfers (B, C, W/C) (FIM): 6 Sit to/from Stand: 6 Weight Bearing Right Lower Extremity: Right Weight Bearing/Tolerated Left Lower Extremity: Left Weight Bearing/Tolerated Gait Training Gait (FIM): 5 Distance (FIM): 3=150 ft Distance: 150' Gait Level of Assist: 5 Gait Persons Needed: 1 Gait Assistive Device: FWW Assessment Current Status: Fair Progress Pt is impulsive and stands when he is ready. Pt was able to amb 150 with FWW and SBA. SPT instructed pt to keep FWW close to body, pt follows commands for brief period. Pt returned to room and transferred to bed with indep in bed mobility. Pt has all needs met in bed and daughter is in room. Pts O2 ranged during tx 88-100%. PT Short Term Goals Short Term Goals Time Frame: Oct 07, 2018 Transfers (B,C,W/C) (FIM): 7 Gait (FIM): 6 Distance (FIM): 3=150 ft Gait Distance Comment: 200' Gait Level of Assist: 6 Gait Assistive Device: FWW PT Plan Problem List Problem List: Activity Tolerance, Functional Strength, Safety, Balance, Gait, Transfer, Bed Mobility, ROM Treatment/Plan Treatment Plan: Continue Plan of Care Treatment Plan: Bed Mobility, Education, Functional Activity Kun, Functional Strength, Gait, Safety, Therapeutic Exercise, Transfers Treatment Duration: Oct 07, 2018 Frequency: 6 times per week Estimated Hrs Per Day: .25 hour per day Patient and/or Family Agrees t: Yes Time/GCodes Time In: 1102 Time Out: 1118 Total Billed Treatment Time: 16 Total Billed Treatment 1 visit GT 16 min ART SEYMOUR PT Oct 01, 2018 12:03
--- NOTE | 2018-10-01 12:35 | Progress Note-Cardiology ---
Cardiology SOAP Progress Note Subjective: Appears somnolent. Does not report any symptoms. Daughter by bedside Objective: I&O/Vital Signs 10/01/18 10/01/18 10/01/18 10/01/18 01:00 01:00 02:00 03:00 Pulse 102 109 97 99 Resp 11 16 17 B/P (MAP) 84/68 (73) 124/98 (107) 106/69 (81) Pulse Ox 98 97 98 O2 Delivery Nasal Cannula Nasal Cannula Nasal Cannula O2 Flow Rate 2.00 2.00 2.00 10/01/18 10/01/18 10/01/18 10/01/18 03:45 03:45 04:00 05:00 Temp 97.7 Pulse 104 105 Resp 19 17 B/P (MAP) 122/85 (97) 102/72 (82) Pulse Ox 98 93 97 O2 Delivery Nasal Cannula Nasal Cannula Nasal Cannula O2 Flow Rate 2.00 2.00 2.00 10/01/18 10/01/18 10/01/18 10/01/18 06:00 07:00 07:00 08:00 Temp 97.6 Pulse 112 98 110 Resp 20 19 B/P (MAP) 126/99 (108) 134/109 (117) Pulse Ox 94 96 O2 Delivery Nasal Cannula Nasal Cannula O2 Flow Rate 2.00 2.00 10/01/18 10/01/18 10/01/18 10/01/18 08:00 09:00 09:23 12:00 Pulse 107 115 Resp 17 20 B/P (MAP) 120/78 (92) 121/93 (102) Pulse Ox 94 96 95 93 O2 Delivery Nasal Cannula Room Air Nasal Cannula Nasal Cannula O2 Flow Rate 2.00 2.00 3.00 2.00 10/01/18 00:00 Intake Total 930 ml Balance 930 ml Weight (Pounds): 177 Weight (Ounces): 2.0 Weight (Calculated Kilograms): 80.282841 Constitutional: No AAO x 3; well-developed, well-nourished, other (appears confused on 10/01/18) Respiratory: No accessory muscle use, No respiratory distress; chest expansion is symmetric, chest is bilaterally symmetric, crackles (lower lobes bilat), rhonchi (scattered) Cardiovascular: irregularly irregular; No JVD; systolic murmur Gastrointestional: No tender; round, audible bowel sounds Extremities: other (Mild bilat LE swelling) Neurologic/Psychiatric: oriented x 3, grossly intact Skin: No rash, No ulcerations; other (bruising at the umbilicus) Results/Procedures: Labs Laboratory Tests 09/30/18 17:16: Glucometer 162H 09/30/18 20:22: Glucometer 197H 10/01/18 03:20: White Blood Count 7.6, Red Blood Count 3.60L, Hemoglobin 10.1L, Hematocrit 32L, Mean Corpuscular Volume 89, Mean Corpuscular Hemoglobin 28, Mean Corpuscular Hemoglobin Concent 32, Red Cell Distribution Width 14.6H, Platelet Count 177, Mean Platelet Volume 10.3, Neutrophils (%) (Auto) 77H, Lymphocytes (%) (Auto) 9L , Monocytes (%) (Auto) 12, Eosinophils (%) (Auto) 2, Basophils (%) (Auto) 0, Neutrophils # (Auto) 5.9, Lymphocytes # (Auto) 0.7L, Monocytes # (Auto) 0.9, Eosinophils # (Auto) 0.1, Basophils # (Auto) 0.0, Sodium Level 134L, Potassium Level 4.2, Chloride Level 104, Carbon Dioxide Level 21, Anion Gap 9, Blood Urea Nitrogen 23H, Creatinine 1.82H, Estimat Glomerular Filtration Rate 36, BUN/ Creatinine Ratio 13, Glucose Level 87, Calcium Level 8.2L, Phosphorus Level 3.7 , Magnesium Level 2.1, Digoxin Level < 0.30L Microbiology 10/01/18 Influenza Types A,B Antigen (LEON) - Final, Complete Laboratory Tests 09/30/18 03:25 10/01/18 03:20 A/P: Assessment: Acute on chronic renal failure Intermittent confusion Chronic a-fib (pt reports 30 years) - rate not well controlled Intolerant to BB and Cardizem secondary to hypotension LLE swelling of undetermined etiology, no Doppler evidence of DVT on 09/29/18 Mild troponin elevation, likely due to transient hypotension and hypoxemia. This does not appear to be Type 1 [place] H/O TIA's in the past Dilated cardiomyopathy with CHF, acute on chronic systolic. Not suitable of PARISH- inhib / ARB due to ac on chronic renal failure Echo of 09/29/18: LVEF 30-35%, global hypokinesis, mod MR, mod TR, PASP 40 mmHg Reported h/o GI bleed in the past for which he has undergone endoscopy and no source was found (per pt) - until today, he refused any OAC other than full dose ASA DM II Reports h/o hypotension d/t medications in the past - exact details unknown Chronic back pain - states relatively inactive at home d/t pain Hypothyroidism - replacement tx Renal insufficiency - CKD 3, prob diabetic nephropathy; also consider post- obstructive uropathy (pt reports chronic urinary symptoms consistent with prostate enlargement) Plan: * Complex management due to multiple comorbidities * A full cardiac w/u would require card cath, given his cm and CHF. He is not a good candidate because of his confusion and because of his renal failure. He himself was confused a the time of my exam, but I had a detailed conversation with his daughter and explained to her the rationale, procedure, risks, benefits , potential complications and alternatives of card cath and possible ad hoc cor intervention. She understands and states that the family would rather not do this. When he was mentally alert, Mr Jean had wanted to be managed conservatively only and, by his own choice, had even been noncompliant with card meds (let alone invasive cardiac procedures). Accordingly, we are continuing to try to treat conservatively and optimize meds * Prognosis is guarded * As documened in our yesterday's note, we recommend Urology consult SAMANTHA LOYOLA MD FACP FAC CCDS Oct 01, 2018 12:35
--- NOTE | 2018-10-01 13:03 | Occupational Ther Daily Note ---
OT Current Status-Daily Note Subjective Pt alert, lying in bed. Pt required encouragement to participate in OT. Pt states I can do all that stuff. No c/o pain. Mental Status/Objective Patient Orientation: Person, Place, Time, Situation Therapy Code Descriptions/Definitions Functional [place] Measure: 0=Not Assessed/NA 4=Minimal Assistance 1=Total Assistance 5=Supervision or Setup 2=Maximal Assistance 6=Modified [place] 3=Moderate Assistance 7=Complete [place] Attachments: IV, Oxygen Other Treatment Attempted to have pt complete any functional tasks, pt refused saying he could do all that. JONES asked about toileting, pt stated yes I can wipe my ass. Pt did complete minimal UE exercise. Demonstrated good UE strength throughout. After therapy, pt in bed with call light/phone in reach. Family present in room. All needs met in room. OT Short Term Goals Short Term Goals Time Frame: Oct 14, 2018 Transfers (B,C,W/C) (FIM): 7 Additional Short Term Goals: 1-Demonstrate ADL Tasks, 2-Verbalize Understanding , 3-ImproveStrength/Kun 1=Demonstrate adherence to instructed precautions during ADL tasks. 2=Patient will verbalize/demonstrate understanding of assistive devices/ modifications for ADL. 3=Patient will improve strength/tolerance for activity to enable patient to perform ADL's. OT Mcc Goals Mcc Goals Time Frame: Oct 28, 2018 Eating (FIM): 7 Grooming(FIM): 7 Bathing(FIM): 7 Bathing Location: L Arm, R Arm, L Upper Leg, R Upper Leg, L Lower Leg ( including foot), R Lower Leg (including foot), Chest, Abdomen, Buttocks, Perineal Area Upper Body Dressing(FIM): 7 Lower Body Dressing(FIM): 7 Toileting(FIM): 7 Transfers (B,C,W/C) (FIM): 7 Toilet/Commode Transfer(FIM): 7 Tub Transfer(FIM): 7 Shower Transfer(FIM): 7 Additional Goals: 1-Demonstrate ADL Tasks, 2-Verbalize Understanding, 3- ImproveStrength/Kun 1=Demonstrate adherence to instructed precautions during ADL tasks. 2=Patient will verbalize/demonstrate understanding of assistive devices/ modifications for ADL. 3=Patient will improve strength/tolerance for activity to enable patient to perform ADL's. OT Education/Plan Discharge Recommendations Plan/Recommendations: Continue POC Treatment Plan/Plan of Care Patient would benefit from OT for education, treatment and training to promote independence in ADL's, mobility, safety and/or upper extremity function for ADL' s. Plan of Care: ADL Retraining, Caregiver Training, Functional Mobility, UE Funct Exercise/Act, UE Neuromus Re-Ed/Coord Treatment Duration: Oct 28, 2018 Frequency: 5 times per week Estimated Hrs Per Day: .25 hour per day Rehab Potential: Good Time/GCodes Start Time: 11:50 Stop Time: 12:00 Total Time Billed (hr/min): 10 Billed Treatment Time 1 visit-EX 1 (10 min) VARSHA LAMBERT Oct 01, 2018 13:03
--- NOTE | 2018-10-01 14:07 | NUR ---
Report given to LAINEY Swann
--- NOTE | 2018-10-01 14:07 | NUR ---
REPORT FROM LAINEY TOBIAS AT THIS TIME.
--- NOTE | 2018-10-01 14:50 | NUR ---
PATIENT 4TH FLOOR AT THIS TIME VIA CART ACCOMPANIED BY LAINEY TOBIAS. THIS RN WILL ASSUME CARE OF THIS PATIENT THROUGHOUT THE REMAINDER OF THIS SHIFT. THIS RN ALSO AGREES WITH THE PREVIOUS RN PHYSICAL ASSESSMENT.
[2018-10-01] MEDS: NS IV 1000 ML 1,000 ML IV SCH (17:24)
[2018-10-01] MEDS: DONEPEZIL 10 MG (ARICEPT) TAB PO SCH (20:24)
[2018-10-01] MEDS: DOXYCYCLINE 100 MG (VIBRAMYCIN) TABLET PO SCH (20:29)
[2018-10-02] MEDS: RT-ALBUTEROL SULF 2.5 MG/3 ML PRE-MIX VIAL INH SCH ×4 (02:20→17:50)
[2018-10-02 04:07] VITALS: BP 131/81
[2018-10-02] MEDS: inSUlin ASPART (NovoLOG) 1 UNIT/0.01 ML (CHARGE PER UNIT) SC SCH ×4 (06:30→20:51)
[2018-10-02] MEDS: LEVOTHYROXINE 25 MCG (LEVOTHROID) TAB PO SCH (06:30)
[2018-10-02] MEDS: KCL 20 MEQ TAB (K-DUR) PO SCH (06:30)
--- NOTE | 2018-10-02 07:18 | Pulmonary Progress Note ---
Subjective Time Seen by a Provider: 07:16 Subjective/Events-last exam No complications noted. Sepsis Event Evaluation Height, Weight, BMI Height: 5'7.00" Weight: 168lbs. 11.2oz. 76.851799re; 25.1 BMI Method:Stated Exam Exam Vital Signs Date Time Temp Pulse Resp B/P (MAP) Pulse Ox O2 Delivery O2 Flow Rate FiO2 10/02/18 04:07 97.4 108 20 131/81 (98) 96 Nasal Cannula 2.00 10/02/18 02:20 96 Nasal Cannula 2.00 10/02/18 01:00 108 10/01/18 23:40 98.4 114 22 113/79 (90) 99 Nasal Cannula 2.00 10/01/18 20:15 Nasal Cannula 2.00 10/01/18 20:00 99.0 97 20 150/83 (105) 96 Nasal Cannula 2.00 10/01/18 19:29 90 Room Air 10/01/18 19:00 117 10/01/18 16:00 97.4 114 18 136/74 (94) 92 Nasal Cannula 2.00 10/01/18 15:51 95 Nasal Cannula 3.00 10/01/18 13:00 126 10/01/18 12:00 115 20 121/93 (102) 93 Nasal Cannula 2.00 10/01/18 09:23 95 Nasal Cannula 3.00 10/01/18 09:00 96 Room Air 2.00 10/01/18 08:00 107 17 120/78 (92) 94 Nasal Cannula 2.00 10/01/18 08:00 97.6 I & O 10/02/18 07:00 Intake Total 1675 ml Balance 1675 ml Height & Weight Height: 5'7.00" Weight: 168lbs. 11.2oz. 76.919853pe; 25.1 BMI Method:Stated General Appearance: No Apparent Distress, Chronically ill Respiratory: Lungs Clear, No Accessory Muscle Use, No Respiratory Distress; No Crackles Cardiovascular: No Murmur, Irregularly Irregular Capillary Refill: Less Than 3 Seconds Extremity: No Calf Tenderness, Pedal Edema (trace) Neurologic/Psychiatric: Alert, Oriented x3, No Motor/Sensory Deficits, Normal Mood/Affect Skin: Normal Color, Warm/Dry Results Lab Laboratory Tests 10/01/18 03:20 Assessment/Plan Assessment/Plan Pulmonary edema with hypoxia -Oxygen - titrate to D/C if possible -Amb 02 testing -Lasix Atelectasis -IS -Increase activity Afib RVR - now controlled -ASA CHFAE EF 30% -Lasix CKD -Monitor Hypotension Hypotheyroid NIDDM CKD -Monitor Pt is ok for discharge from pulmonary standpoint pending oxy amb testing. ISMAEL BERNARDO DO Oct 02, 2018 07:18
[2018-10-02] MEDS: TAMSULOSIN 0.4 MG (FLOMAX) CAP PO SCH ×2 (07:57→20:51)
[2018-10-02] MEDS: DIGOXIN 0.25 MG (LANOXIN) TAB PO SCH (07:57)
[2018-10-02] MEDS: FUROSEMIDE 40 MG (LASIX) TAB PO SCH (07:57)
[2018-10-02] MEDS: predniSONE 5 MG TAB PO SCH (07:57)
[2018-10-02] MEDS: APIXABAN 2.5 MG (ELIQUIS) TABLET PO SCH ×2 (07:57→20:51)
[2018-10-02 08:00] VITALS: BP 124/74
--- NOTE | 2018-10-02 10:04 | Physical Therapy Daily Note ---
PT Daily Note-Current Subjective Patient in bed pre tx, agrees to PT, has no complaints of pain. Appearance Patient in bed post tx with nurse call, phone, tray, all needs met. Mental Status Patient Orientation: Person Transfers Therapy Code Descriptions/Definitions Functional [place] Measure: 0=Not Assessed/NA 4=Minimal Assistance 1=Total Assistance 5=Supervision or Setup 2=Maximal Assistance 6=Modified [place] 3=Moderate Assistance 7=Complete [place] Therapy Quality Codes: 6 Independent with activity with or without an assistive device 5 Patient requires set up or clean up by helper. Patient completes activity by themselves 4 Supervision or touching assist (CGA). [place] provide cues , steadying assist 3 The helper provides less than half the effort to complete the activity 2 The helper provides more than half the effort to complete the activity 1 Dependent. The helper does all the effort to complete an activity 7 Patient refused to complete or attempt activity 9 The patient did not perform the activity before the current illness or injury 88 Not attempted due to Medical conditions or safety concerns Transfers (B, C, W/C) (FIM): 5 Scootin Rollin Supine to/from Sit: 5 Sit to/from Stand: 5 Bed to/from Chair: 5 Patient moves very quickly and impulsively, so much so that it could increase his chances of falling. Weight Bearing Right Lower Extremity: Right Weight Bearing/Tolerated Left Lower Extremity: Left Weight Bearing/Tolerated Gait Training Gait (FIM): 5 Distance: 200' Gait Level of Assist: 5 Gait Persons Needed: 1 Gait Assistive Device: FWW Patient ambulates quickly, states he is getting tired but refuses to take a standing rest break and states "i just want to get this crap over with". Treatments bed mobility and transfers, ambulation Assessment Current Status: Fair Progress improving endurance PT Short Term Goals Short Term Goals Time Frame: Oct 07, 2018 Transfers (B,C,W/C) (FIM): 7 Gait (FIM): 6 Distance (FIM): 3=150 ft Gait Distance Comment: 200' Gait Level of Assist: 6 Gait Assistive Device: FWW PT Plan Problem List Problem List: Activity Tolerance, Functional Strength, Safety, Balance, Gait, Transfer Treatment/Plan Treatment Plan: Continue Plan of Care Treatment Plan: Bed Mobility, Education, Functional Activity Kun, Functional Strength, Gait, Safety, Therapeutic Exercise, Transfers Treatment Duration: Oct 07, 2018 Frequency: 6 times per week Estimated Hrs Per Day: .25 hour per day Patient and/or Family Agrees t: Yes Safety Risks/Education Patient Education: Gait Training, Transfer Techniques, Correct Positioning, Safety Issues Teaching Recipient: Patient Teaching Methods: Demonstration, Discussion Response to Teaching: Reinforcement Needed Time/GCodes Time In: 0952 Time Out: 1002 Total Billed Treatment Time: 10 Total Billed Treatment 1 visit GT 10' RIKY BRICEÑO PT Oct 02, 2018 10:04
--- NOTE | 2018-10-02 11:32 | Progress Note-Hospitalist ---
Subjective HPI/CC On Admission Date Seen by Provider: Oct 02, 2018 Time Seen by Provider: 11:29 Pt is a 78yoCM with a PMH of a-fib, NIDDMII, hypothyroidism, TIA who presented to the ER with a CC of left leg swelling times 6 days. He states he was seen by his primary care doctor and was scheduled for an outpatient ultrasound but his thought he was doing worse so brought him to the emergency room. He was found to have significant lower extremity edema and a BNP of 12k. He was also found to be in a-fib with RVR. Reportedly he is supposed to be on amiodarone but quit taking it. He seems to be noncompliant with most of his medications as he has not been taking his metformin either. He is a somewhat poor historian and attempts to compensate for recollection issues with humor. He states he is feeling well and isn't sure why he is in the hospital but when directly asked about symptoms he endorses SOB, orthopnea, and palpitations. He states his heart rate is normally 120s at home. Subjective/Events-last exam Pt reports feeling much better. Has been up and ambulating in the hallway. No complaints. Requested DC home to me. When Dr Patel rounded pt stated would prefer to have cardiac cath prior to DC so to be arranged by Dr Patel. Objective Exam Vital Signs Vital Signs Date Time Temp Pulse Resp B/P (MAP) Pulse Ox O2 Delivery O2 Flow Rate FiO2 10/02/18 13:00 113 10/02/18 12:00 97.8 20 154/84 (107) 94 Nasal Cannula 2.00 Capillary Refill : Less Than 3 Seconds General Appearance: No Apparent Distress, Chronically ill Respiratory: Lungs Clear, No Accessory Muscle Use, No Respiratory Distress; No Crackles Cardiovascular: No Murmur, Irregularly Irregular Gastrointestinal: Normal Bowel Sounds, Non Tender, Soft Extremity: No Calf Tenderness, Pedal Edema (L>R) Neurologic/Psychiatric: Alert, Oriented x3 Skin: Normal Color, Warm/Dry Results/Procedures Lab Patient resulted labs reviewed. Imaging: Reviewed Imaging Report Assessment/Plan Assessment and Plan Assess & Plan/Chief Complaint Afib with RVR, CHF Exacerbation Diagnosis/Problems Diagnosis/Problems (1) Atrial fibrillation with rapid ventricular response Status: Acute Assessment & Plan: Rate improved, on oral cardizem, digoxin Continue Eliquis Cardiology consulted, appreciate recs (2) Congestive heart failure Status: Acute Assessment & Plan: Continue lasix Continue BB and PARISH Echo reveals 30% with global LV hypokinesis, elevated PA pressure, and mod mitral regurg Cardiology consulted Incontinent and did not tolerate luis so I/Os inaccurate Plan for cardiac cath tomorrow Qualifiers: Heart failure type: systolic Heart failure chronicity: acute on chronic Qualified Codes: I50.23 - Acute on chronic systolic (congestive) heart failure (3) CKD (chronic kidney disease) Assessment & Plan: Unsure of baseline but patient reports history of CKD Check in AM IVF started in preparation of cath tomorrow Qualifiers: Chronic kidney disease stage: stage 2 (mild) Qualified Codes: N18.2 - Chronic kidney disease, stage 2 (mild) (4) Hypothyroidism Status: Chronic Assessment & Plan: Cont home synthroid TSH normal Qualifiers: Hypothyroidism type: unspecified Qualified Codes: E03.9 - Hypothyroidism, unspecified (5) Non-insulin dependent type 2 diabetes mellitus Assessment & Plan: Only takes metformin prn and is on glyburide Will hold both and monitor blood sugars Fasting BS have been relatively well controlled sliding scale insulin (6) Elevated troponin Status: Acute Assessment & Plan: Mildly elevated troponin but trended down Cardiology consulted Plan for cath tomorrow (7) Elevated d-dimer Status: Acute Assessment & Plan: Doppler of left lower extremity negative Clinical Quality Measures DVT/VTE Risk/Contraindication: Risk Factor Score Per Nursin RFS Level Per Nursing on Admit: 4+=Very High HELDER ROMAN MD Oct 02, 2018 11:32
--- NOTE | 2018-10-02 11:50 | Progress Note-Cardiology ---
Cardiology SOAP Progress Note Subjective: Feels better compared to time of admission No cp or palp or syncope Shortness of breath better Objective: I&O/Vital Signs 10/02/18 10/02/18 10/02/18 10/02/18 01:00 02:20 04:07 07:00 Temp 97.4 Pulse 108 108 115 Resp 20 B/P (MAP) 131/81 (98) Pulse Ox 96 96 O2 Delivery Nasal Cannula Nasal Cannula O2 Flow Rate 2.00 2.00 10/02/18 10/02/18 10/02/18 08:00 08:00 08:31 Temp 97.7 Pulse 109 Resp 20 B/P (MAP) 124/74 (91) Pulse Ox 96 91 O2 Delivery Nasal Cannula Nasal Cannula Room Air O2 Flow Rate 2.00 2.00 10/02/18 00:00 Intake Total 1085 ml Balance 1085 ml Weight (Pounds): 168 Weight (Ounces): 11.2 Weight (Calculated Kilograms): 76.422792 Constitutional: AAO x 3, well-developed, well-nourished, other (appears confused on 10/01/18) Respiratory: No accessory muscle use, No respiratory distress; chest expansion is symmetric, chest is bilaterally symmetric, crackles (lower lobes bilat), rhonchi (scattered) Cardiovascular: irregularly irregular; No JVD; systolic murmur Gastrointestional: No tender; round, audible bowel sounds Extremities: other (Mild bilat LE swelling) Neurologic/Psychiatric: oriented x 3, grossly intact Skin: No rash, No ulcerations; other (bruising at the umbilicus) Results/Procedures: Labs Laboratory Tests 10/01/18 12:21: Glucometer 144H 10/01/18 16:05: Glucometer 175H 10/01/18 20:22: Glucometer 188H 10/02/18 03:30: Digoxin Level < 0.30L 10/02/18 06:26: Glucometer 130H 10/02/18 11:00: Glucometer 202H Microbiology 10/01/18 Influenza Types A,B Antigen (LEON) - Final, Complete Laboratory Tests 10/01/18 03:20 A/P: Assessment: Acute on chronic renal failure Intermittent confusion Chronic a-fib (pt reports 30 years) - rate not well controlled Intolerant to BB and Cardizem secondary to hypotension LLE swelling of undetermined etiology, no Doppler evidence of DVT on 09/29/18 Mild troponin elevation, likely due to transient hypotension and hypoxemia, probably Type 2 AR H/O TIA's in the past Dilated cardiomyopathy with CHF, acute on chronic systolic. Not suitable of PARISH- inhib / ARB due to ac on chronic renal failure Echo of 09/29/18: LVEF 30-35%, global hypokinesis, mod MR, mod TR, PASP 40 mmHg Reported h/o GI bleed in the past for which he has undergone endoscopy and no source was found (per pt) - until today, he refused any OAC other than full dose ASA DM II Reports h/o hypotension d/t medications in the past - exact details unknown Chronic back pain - states relatively inactive at home d/t pain Hypothyroidism - replacement tx Renal insufficiency - CKD 3, prob diabetic nephropathy; also consider post- obstructive uropathy (pt reports chronic urinary symptoms consistent with prostate enlargement) Plan: * Complex management due to multiple comorbidities * He is fully lucid today and alert and oriented. His son is present by his bedside. We had a long and detailed discussion. A full cardiac w/u would require card cath, given his cm and CHF. His risk for cath-related complication is much higher than usual. In addition to all other risks, he is at much higher risk of contrast nephropathy, given his baseline CKD 3-4. He understands all of these issues in full. We have answered all questions. He wishes to proceed with cath * We will sched cath in about 24 hours and carry out slow, careful hydration to reduce risk of contrast nephropathy * I discussed his case with Dr Casiano on the phone this am SAMANTHA LOYOLA MD FACP FAC CCDS Oct 02, 2018 11:50
--- NOTE | 2018-10-02 11:51 | NUR ---
LAINEY Keen stated on the telephone not to do the O2 qualification today since the patient is going to have a Heart Cath done tomorrow
[2018-10-02 12:00] VITALS: BP 154/84
[2018-10-02] MEDS ORDERED: NS IV 1000 ML 1,000 ML ONE (12:41)
[2018-10-02] MEDS: NS IV 1000 ML 1,000 ML IV SCH (12:43)
[2018-10-02] MEDS ORDERED: RT-ADVAIR HFA 115/21 MCG PER PUFF IH SCH (13:30)
[2018-10-02] MEDS: BENZONATATE 100 MG (TESSALON) CAPSULE PO PRN ×2 (15:04→21:48)
[2018-10-02 15:46] VITALS: BP 137/86
[2018-10-02] MEDS ORDERED: RT-ADVAIR HFA 115/21 MCG PER PUFF IH PRN (16:00)
[2018-10-02 19:19] VITALS: BP 120/74
[2018-10-02] MEDS: DOXYCYCLINE 100 MG (VIBRAMYCIN) TABLET PO SCH (20:52)
[2018-10-02] MEDS: DONEPEZIL 10 MG (ARICEPT) TAB PO SCH (20:52)
[2018-10-03] VITALS (17 sets, daily range): BP systolic 94–156; BP diastolic 54–93
[2018-10-03] MEDS: NS IV 1000 ML 1,000 ML IV SCH ×3 (04:03→20:29)
[2018-10-03] MEDS: RT-ALBUTEROL SULF 2.5 MG/3 ML PRE-MIX VIAL INH SCH ×3 (04:42→14:55)
[2018-10-03] MEDS: inSUlin ASPART (NovoLOG) 1 UNIT/0.01 ML (CHARGE PER UNIT) SC SCH ×4 (05:40→20:30)
[2018-10-03] MEDS: LEVOTHYROXINE 25 MCG (LEVOTHROID) TAB PO SCH (05:41)
[2018-10-03] MEDS: KCL 20 MEQ TAB (K-DUR) PO SCH (05:41)
[2018-10-03 06:23] LABS: BASOPHILS % (AUTO) 0 % (0-10); EOSINOPHILS # (AUTO) 0.3 10^3/uL (0.0-0.3); EOSINOPHILS % (AUTO) 4 % (0-10); HEMATOCRIT 34 % (40-54); HEMOGLOBIN 10.7 G/DL (13.3-17.7); LYMPHOCYTES # (AUTO) 1.1 X 10^3 (1.0-4.0); LYMPHOCYTES % (AUTO) 13 % (12-44); MEAN CORPUSCULAR HEMOGLOBIN 28 PG (25-34); MEAN CORPUSCULAR HGB CONC 31 G/DL (32-36); MEAN CORPUSCULAR VOLUME 91 FL (80-99); MEAN PLATELET VOLUME 9.7 FL (7.4-10.4); MONOCYTES # (AUTO) 0.9 X 10^3 (0.0-1.0); MONOCYTES % (AUTO) 10 % (0-12); NEUTROPHILS # (AUTO) 6.3 X 10^3 (1.8-7.8); NEUTROPHILS % (AUTO) 73 % (42-75); PLATELET COUNT 204 10^3/uL (130-400); WHITE BLOOD COUNT 8.6 10^3/uL (4.3-11.0)
[2018-10-03 06:40] LABS: CALCIUM 8.4 MG/DL (8.5-10.1); CREATININE SERUM 1.42 MG/DL (0.60-1.30); POTASSIUM 4.3 MMOL/L (3.6-5.0)
[2018-10-03] MEDS: TAMSULOSIN 0.4 MG (FLOMAX) CAP PO SCH ×2 (07:28→20:29)
[2018-10-03] MEDS: predniSONE 5 MG TAB PO SCH (07:28)
[2018-10-03] MEDS: FUROSEMIDE 40 MG (LASIX) TAB PO SCH (07:28)
[2018-10-03] MEDS: DIGOXIN 0.25 MG (LANOXIN) TAB PO SCH (07:28)
[2018-10-03] MEDS ORDERED: NS IV 1000 ML 2,000 ML ONE (09:54)
[2018-10-03] MEDS ORDERED: LIDOCAINE 1% INJ 20 ML 20 ML VIAL ONE (09:54)
[2018-10-03] MEDS ORDERED: MIDAZOLAM 5 MG/5 ML (VERSED) VIAL ONE (09:54)
[2018-10-03] MEDS ORDERED: HEParin 1000 UNIT/ML (10ML VIAL) FOR BOLUS ONE (09:54)
[2018-10-03] MEDS ORDERED: fentaNYL INJECTION 100 MCG/2 ML AMP ONE (09:54)
--- NOTE | 2018-10-03 10:40 | NUR ---
Pt to lab rn via bed. Consents signed and in chart. Pt received shower with surgical soap this AM.
--- NOTE | 2018-10-03 10:59 | Progress Note-Hospitalist ---
Subjective HPI/CC On Admission Date Seen by Provider: Oct 03, 2018 Time Seen by Provider: 10:58 Pt is a 78yoCM with a PMH of a-fib, NIDDMII, hypothyroidism, TIA who presented to the ER with a CC of left leg swelling times 6 days. He states he was seen by his primary care doctor and was scheduled for an outpatient ultrasound but his thought he was doing worse so brought him to the emergency room. He was found to have significant lower extremity edema and a BNP of 12k. He was also found to be in a-fib with RVR. Reportedly he is supposed to be on amiodarone but quit taking it. He seems to be noncompliant with most of his medications as he has not been taking his metformin either. He is a somewhat poor historian and attempts to compensate for recollection issues with humor. He states he is feeling well and isn't sure why he is in the hospital but when directly asked about symptoms he endorses SOB, orthopnea, and palpitations. He states his heart rate is normally 120s at home. Subjective/Events-last exam Pt reports feeling well. Ready for cath. States swelling has returned in legs since IVF started. Objective Exam Vital Signs Vital Signs Date Time Temp Pulse Resp B/P (MAP) Pulse Ox O2 Delivery O2 Flow Rate FiO2 10/03/18 08:00 98.1 105 20 156/93 (114) 97 Nasal Cannula 2.00 Capillary Refill : Less Than 3 Seconds General Appearance: No Apparent Distress, Chronically ill Respiratory: Lungs Clear, No Accessory Muscle Use, No Respiratory Distress Cardiovascular: No Murmur, Irregularly Irregular Gastrointestinal: Normal Bowel Sounds, Non Tender, Soft Extremity: No Calf Tenderness, Pedal Edema (L>R, slightly worse than yesterday) Neurologic/Psychiatric: Alert, Oriented x3 Skin: Normal Color, Warm/Dry Results/Procedures Lab Laboratory Tests 10/03/18 05:54 Patient resulted labs reviewed. Imaging: Reviewed Imaging Report Assessment/Plan Assessment and Plan Assess & Plan/Chief Complaint Afib with RVR, CHF Exacerbation Diagnosis/Problems Diagnosis/Problems (1) Atrial fibrillation with rapid ventricular response Status: Acute Assessment & Plan: Rate controlled now on oral cardizem, digoxin Continue Eliquis Cardiology consulted, appreciate recs (2) Congestive heart failure Status: Acute Assessment & Plan: Continue lasix Continue BB and PARISH Echo reveals 30% with global LV hypokinesis, elevated PA pressure, and mod mitral regurg Cardiology consulted Plan for cardiac cath today Qualifiers: Heart failure type: systolic Heart failure chronicity: acute on chronic Qualified Codes: I50.23 - Acute on chronic systolic (congestive) heart failure (3) CKD (chronic kidney disease) Assessment & Plan: Unsure of baseline but patient reports history of CKD Creatinine improved today- continue IVF for pretreatment for cath Qualifiers: Chronic kidney disease stage: stage 2 (mild) Qualified Codes: N18.2 - Chronic kidney disease, stage 2 (mild) (4) Hypothyroidism Status: Chronic Assessment & Plan: Cont home synthroid TSH normal Qualifiers: Hypothyroidism type: unspecified Qualified Codes: E03.9 - Hypothyroidism, unspecified (5) Non-insulin dependent type 2 diabetes mellitus Assessment & Plan: Only takes metformin prn and is on glyburide Will hold both and monitor blood sugars Fasting BS have been relatively well controlled sliding scale insulin (6) Elevated troponin Status: Acute Assessment & Plan: Mildly elevated troponin but trended down Cardiology consulted Plan for cath today (7) Elevated d-dimer Status: Acute Assessment & Plan: Doppler of left lower extremity negative Clinical Quality Measures DVT/VTE Risk/Contraindication: Risk Factor Score Per Nursin RFS Level Per Nursing on Admit: 4+=Very High HELDER ROMAN MD Oct 03, 2018 10:59
--- NOTE | 2018-10-03 11:36 | Progress Note-Cardiology ---
Cardiology SOAP Progress Note Subjective: No cp. Shortness of breath better than before. Less palpitation. No syncope. Continuing malaise, but with improvement. Objective: I&O/Vital Signs 10/03/18 10/03/18 10/03/18 10/03/18 00:27 01:00 03:55 07:00 Temp 98.4 97.4 Pulse 103 127 70 131 Resp 20 20 B/P (MAP) 132/82 (99) 153/86 (108) Pulse Ox 94 95 O2 Delivery Nasal Cannula Nasal Cannula O2 Flow Rate 2.00 2.00 10/03/18 10/03/18 10/03/18 07:40 07:52 08:00 Temp 98.1 Pulse 105 Resp 20 B/P (MAP) 156/93 (114) Pulse Ox 96 97 O2 Delivery Nasal Cannula Nasal Cannula Nasal Cannula O2 Flow Rate 2.00 2.00 2.00 10/02/18 23:59 Intake Total 1560 ml Balance 1560 ml Weight (Pounds): 164 Weight (Ounces): 4.8 Weight (Calculated Kilograms): 74.496456 Constitutional: AAO x 3, well-developed, well-nourished, other (appears confused on 10/01/18) Respiratory: No accessory muscle use, No respiratory distress; chest expansion is symmetric, chest is bilaterally symmetric, crackles (lower lobes bilat), rhonchi (scattered) Cardiovascular: irregularly irregular; No JVD; systolic murmur Gastrointestional: No tender; round, audible bowel sounds Extremities: other (Mild bilat LE swelling) Neurologic/Psychiatric: oriented x 3, grossly intact Skin: No rash, No ulcerations; other (bruising at the umbilicus) Results/Procedures: Labs Laboratory Tests 10/02/18 15:46: Glucometer 279H 10/02/18 20:28: Glucometer 145H 10/03/18 05:38: Glucometer 125H 10/03/18 05:54: White Blood Count 8.6, Red Blood Count 3.78L, Hemoglobin 10.7L, Hematocrit 34L, Mean Corpuscular Volume 91, Mean Corpuscular Hemoglobin 28, Mean Corpuscular Hemoglobin Concent 31L, Red Cell Distribution Width 15.0H, Platelet Count 204, Mean Platelet Volume 9.7, Neutrophils (%) (Auto) 73, Lymphocytes (%) (Auto) 13, Monocytes (%) (Auto) 10, Eosinophils (%) (Auto) 4, Basophils (%) (Auto) 0, Neutrophils # (Auto) 6.3, Lymphocytes # (Auto) 1.1, Monocytes # (Auto) 0.9, Eosinophils # (Auto) 0.3, Basophils # (Auto) 0.0, Sodium Level 139, Potassium Level 4.3, Chloride Level 105, Carbon Dioxide Level 25, Anion Gap 9, Blood Urea Nitrogen 22H, Creatinine 1.42H, Estimat Glomerular Filtration Rate 48, BUN/ Creatinine Ratio 15, Glucose Level 107H, Calcium Level 8.4L Microbiology 10/01/18 Influenza Types A,B Antigen (LEON) - Final, Complete A/P: Assessment: Dilated cardiomyopathy with CHF, acute on chronic systolic Card cath of 10/03/18: mod diffuse CAD, up to 60% mid LAD (bifurcation involved), LVEDP 20 mmHg, LVEF 35-40% Echo of 09/29/18: LVEF 30-35%, global hypokinesis, mod MR, mod TR, PASP 40 mmHg Intermittent confusion Chronic a-fib (pt reports 30 years) - rate not well controlled LLE swelling of undetermined etiology, no Doppler evidence of DVT on 09/29/18 Mild troponin elevation at time of presentation on 09/29/18, likely due to transient hypotension and hypoxemia and A Fib with RVR, probably Type 2 IA H/O TIA's in the past Reported h/o GI bleed in the past for which he has undergone endoscopy and no source was found (per pt). Has previously refused OAC, but agreed to it during this hosp DM II Reports h/o hypotension d/t medications in the past - exact details unknown Chronic back pain - states relatively inactive at home d/t pain Hypothyroidism - replacement tx Ac on chronic renal failure - CKD 3, prob diabetic nephropathy; also consider post-obstructive uropathy (pt reports chronic urinary symptoms consistent with prostate enlargement) Plan: * Complex management due to multiple comorbidities * I discussed his CV issues with him in detail * BB and dig for rate control and cardiomyopathy and systolic CHF * Aspirin for CAD * Apixaban for stroke prophylaxis * Statin for CAD * PARISH-inhib for cardiomyopathy, if renal function and bp stay stable * Continue slow and careful hydration for prevention of contrast nephropathy SAMANTHA LOYOLA MD FACP FAC CCDS Oct 03, 2018 11:36
[2018-10-03] MEDS ORDERED: CARVEDILOL 6.25 MG (COREG) TAB PO NR (11:45)
[2018-10-03] MEDS ORDERED: ASPIRIN 81 MG CHEW (CHILDREN'S ASA) PO NR (11:45)
[2018-10-03] MEDS ORDERED: PATIENT MAY USE OWN MEDS, ALL PO SCH (11:45)
[2018-10-03] MEDS ORDERED: lisINopril 5 MG (PRINIVIL) TABLET PO NR (11:45)
--- NOTE | 2018-10-03 11:59 | CARDIAC CATHETERIZATION ---
DATE OF SERVICE: 10/03/2018 The patient is a 78-year-old man who was hospitalized with congestive heart failure and workup indicated dilated cardiomyopathy. He also has atrial fibrillation, which appears chronic. Cardiac catheterization was carried out today after having obtained an informed consent. DESCRIPTION OF PROCEDURE: He was brought to the cardiac catheterization laboratory in a fasting state. Right groin was prepared and draped in usual sterile fashion. Lidocaine 1% for local anesthesia. Modified Seldinger technique was used to advance a 5-Mozambican sheath in the right femoral artery. We used a 5-[place]oz[place] JL4.5 catheter for left coronary angiography and a JR4 catheter for right coronary angiography. We used 5-[place]ozambican pigtail catheter for left heart catheterization, left ventricular angiography. Angiography of the right femoral artery was carried out through the sheath and Mynx was used to achieve hemostasis following sheath removal. He tolerated the procedure well. HEMODYNAMICS: Left ventricular end-diastolic pressure following coronary angiography was 20 mmHg. There is no significant pressure gradient on pullback across the aortic valve. Ascending aortic pressure was 120/80 with a mean of 99 mmHg. CORONARY ANGIOGRAPHY: There is marked diffuse coronary calcification involving all coronary vessels. Left main coronary artery does not exhibit significant obstructive disease. Left anterior descending artery has diffuse moderate disease with approximately 60% stenosis in its mid vessel, which also involves the origin of the first diagonal branch. There appears to be some fissuring of plaque within this segment, but this does not appear to be unstable. Flow throughout the vessel is normal. Right coronary artery is dominant, heavily calcified, and with moderate diffuse disease. LEFT VENTRICULAR ANGIOGRAPHY: Left ventricular angiography was carried out in the right anterior oblique projection. There appears to be moderate global hypokinesis. Left ventricular ejection fraction is estimated to be 35 to 40%. CONCLUSIONS: 1. Diffuse moderate coronary artery disease as described above. 2. Impairment of global left ventricular systolic function with ejection fraction 35% to 40%. 3. Elevated left ventricular end-diastolic pressure. DISCUSSION AND RECOMMENDATIONS: Based on results of the study, it appears appropriate to continue a conservative approach. Risk factor modification has been reviewed with him. Treatment is with beta blockers and digoxin for cardiomyopathy and ventricular rate control. We will add PARISH inhibitors or angiotensin receptor blockers if renal function so allows. Aspirin is being continued for coronary artery disease. Apixaban is being continued for chronic atrial fibrillation. Job ID: [id number] DocumentID: [id number] Dictated Date: 10/03/2018 11:26:32 Furnace Cleaner Date: 10/03/2018 11:58:53 Dictated By: SAMANTHA LOYOLA MD, MA, FACP, FACC,
[2018-10-03] MEDS: DOXYCYCLINE 100 MG (VIBRAMYCIN) TABLET PO SCH (20:29)
[2018-10-03] MEDS: BENZONATATE 100 MG (TESSALON) CAPSULE PO PRN (20:29)
[2018-10-03] MEDS: APIXABAN 2.5 MG (ELIQUIS) TABLET PO SCH (20:29)
[2018-10-03] MEDS: DONEPEZIL 10 MG (ARICEPT) TAB PO SCH (20:29)
[2018-10-03] MEDS: CARVEDILOL 6.25 MG (COREG) TAB PO SCH (20:32)
[2018-10-04] MEDS: RT-ALBUTEROL SULF 2.5 MG/3 ML PRE-MIX VIAL INH SCH ×5 (00:01→19:55)
[2018-10-04 04:00] VITALS: BP 145/95
[2018-10-04 05:01] LABS: HEMOGLOBIN 12.2 G/DL (13.3-17.7); MEAN PLATELET VOLUME 9.6 FL (7.4-10.4); RED CELL DISTRIBUTION WIDTH 14.8 % (10.0-14.5); WHITE BLOOD COUNT 9.7 10^3/uL (4.3-11.0)
[2018-10-04 05:17] LABS: CALCIUM 8.7 MG/DL (8.5-10.1); CREATININE SERUM 1.35 MG/DL (0.60-1.30); POTASSIUM 4.4 MMOL/L (3.6-5.0)
[2018-10-04] MEDS: inSUlin ASPART (NovoLOG) 1 UNIT/0.01 ML (CHARGE PER UNIT) SC SCH ×4 (06:28→20:40)
[2018-10-04] MEDS: KCL 20 MEQ TAB (K-DUR) PO SCH (06:29)
[2018-10-04] MEDS: LEVOTHYROXINE 25 MCG (LEVOTHROID) TAB PO SCH (06:29)
[2018-10-04] MEDS: TAMSULOSIN 0.4 MG (FLOMAX) CAP PO SCH ×2 (07:48→20:41)
[2018-10-04] MEDS: FUROSEMIDE 40 MG (LASIX) TAB PO SCH (07:49)
[2018-10-04] MEDS: ASPIRIN 81 MG CHEW (CHILDREN'S ASA) PO SCH (07:49)
[2018-10-04] MEDS: predniSONE 5 MG TAB PO SCH (07:49)
[2018-10-04] MEDS: APIXABAN 2.5 MG (ELIQUIS) TABLET PO SCH ×2 (07:49→20:41)
[2018-10-04] MEDS: DIGOXIN 0.25 MG (LANOXIN) TAB PO SCH (07:49)
[2018-10-04] MEDS: CARVEDILOL 6.25 MG (COREG) TAB PO SCH (07:49)
--- NOTE | 2018-10-04 07:52 | NUR ---
prior to a.m. medication pulse was 77 b/p was 116/81 94 % on room air.
[2018-10-04 08:00] VITALS: BP 158/76
--- NOTE | 2018-10-04 08:54 | NUR ---
UNABLE TO WALK PT DUE TO PT C/O BEING DIZZY.
[2018-10-04] MEDS ORDERED: lisINopril 5 MG (PRINIVIL) TABLET PO SCH (09:00)
--- NOTE | 2018-10-04 09:29 | Progress Note-Cardiology ---
Cardiology SOAP Progress Note Subjective: Sitting up in bed. Family x1 at the bedside. He denies any c/o CP, palpitations, syncope or dyspnea. He does report lightheadedness when getting up. Objective: I&O/Vital Signs 10/04/18 10/04/18 10/04/18 10/04/18 07:00 08:00 08:00 08:54 Temp 98.4 Pulse 107 122 Resp 16 B/P (MAP) 158/76 (103) Pulse Ox 90 93 93 O2 Delivery Nasal Cannula Room Air Room Air O2 Flow Rate 2.00 10/04/18 10/04/18 10/04/18 10/04/18 12:00 13:00 16:04 16:11 Temp 98.9 97.6 Pulse 86 86 95 Resp 18 20 B/P (MAP) 117/81 (93) 137/71 (93) Pulse Ox 96 95 96 O2 Delivery Nasal Cannula Nasal Cannula Nasal Cannula O2 Flow Rate 2.00 2.00 2.00 10/04/18 00:00 Intake Total 900 ml Balance 900 ml Weight (Pounds): 161 Weight (Ounces): 3.2 Weight (Calculated Kilograms): 73.295838 Constitutional: AAO x 3, well-developed, well-nourished Respiratory: No accessory muscle use, No respiratory distress; chest expansion is symmetric, chest is bilaterally symmetric, crackles (lower lobes bilat), rhonchi (scattered) Cardiovascular: irregularly irregular; No JVD; systolic murmur Gastrointestional: No tender; round, audible bowel sounds Extremities: other (Mild bilat LE swelling) Neurologic/Psychiatric: oriented x 3, grossly intact Skin: No rash, No ulcerations Results/Procedures: Labs Laboratory Tests 10/03/18 20:03: Glucometer 216H 10/04/18 04:18: Glucometer 97 10/04/18 04:55: White Blood Count 9.7, Red Blood Count 4.27L, Hemoglobin 12.2L, Hematocrit 39L, Mean Corpuscular Volume 91, Mean Corpuscular Hemoglobin 29, Mean Corpuscular Hemoglobin Concent 32, Red Cell Distribution Width 14.8H, Platelet Count 197, Mean Platelet Volume 9.6, Sodium Level 139, Potassium Level 4.4, Chloride Level 104, Carbon Dioxide Level 26, Anion Gap 9, Blood Urea Nitrogen 27H, Creatinine 1.35H, Estimat Glomerular Filtration Rate 51, BUN/Creatinine Ratio 20, Glucose Level 99, Calcium Level 8.7 10/04/18 11:04: Glucometer 181H 10/04/18 16:13: Glucometer 224H Microbiology 10/01/18 Influenza Types A,B Antigen (LEON) - Final, Complete Laboratory Tests 10/03/18 05:54 10/04/18 04:55 A/P: Assessment: Dilated cardiomyopathy with CHF, acute on chronic systolic - clinically improved Card cath of 10/03/18: mod diffuse CAD, up to 60% mid LAD (bifurcation involved), LVEDP 20 mmHg, LVEF 35-40% Echo of 09/29/18: LVEF 30-35%, global hypokinesis, mod MR, mod TR, PASP 40 mmHg Chronic a-fib (pt reports 30 years) - rate improved LLE swelling of undetermined etiology, no Doppler evidence of DVT on 09/29/18 Mild troponin elevation at time of presentation on 09/29/18, likely due to transient hypotension and hypoxemia and A Fib with RVR, probably Type 2 [place] H/O TIA's in the past Reported h/o GI bleed in the past for which he has undergone endoscopy and no source was found (per pt). Has previously refused OAC, but agreed to it during this hosp DM II Reports h/o hypotension d/t medications in the past - exact details unknown Chronic back pain - states relatively inactive at home d/t pain Hypothyroidism - replacement tx Ac on chronic renal failure - CKD 3, prob diabetic nephropathy; also consider post-obstructive uropathy (pt reports chronic urinary symptoms consistent with prostate enlargement) Plan: * Complex management due to multiple comorbidities * Orthostatic hypotension for which he is symptomatic - therefore not a suitable candidate for PARISH, ARB or BB tx * We will increase Dig for HR control * Continue aspirin for CAD * Apixaban for stroke prophylaxis * Statin for CAD Physician Assessment Physician Assessment No palp or cp or shortness of breath. Has gen weakness and reports dizziness with posture changes Appears comfortable Borderline low bp with further drop with upright posture Lungs: fair air entry, diminished at the bases Cor: irreg Ext: no c/c/e A&R * As documented in our note above that I updated (italics) and as noted below * His fam brought a list of meds he has previously not been able to tolerate. They include bb and PARISH-inhib * We are discontinuing bb and PARISH-inhib due to low bp and due to h/o intolerance * Dig level very low (>0.3). We are increasing dig for rate control and for CHF * Monitor labs * Not ready for d/c yet (symptomatic) TONY HOLLIDAY BROOM HANDLE DIPPER Oct 04, 2018 09:29 SAMANTHA LOYOLA MD FACP [facility] Oct 04, 2018 17:00
--- NOTE | 2018-10-04 10:00 | Physical Therapy Daily Note ---
PT Daily Note-Current Subjective Pt in bed and agrees to PT. Pt reports that RT had just came in wanting to do a 6MWT and observe his O2, and he did not do it because he was feeling dizzy. Pt also did not have N/C on with O2 at 2L. Pain Numeric Pain Scale: 0-No Pain Location: No Pain Reported Mental Status Patient Orientation: Person, Place, Situation Attachments: SCD's, Oxygen, IV Transfers Therapy Code Descriptions/Definitions Functional [place] Measure: 0=Not Assessed/NA 4=Minimal Assistance 1=Total Assistance 5=Supervision or Setup 2=Maximal Assistance 6=Modified [place] 3=Moderate Assistance 7=Complete [place] Therapy Quality Codes: 6 Independent with activity with or without an assistive device 5 Patient requires set up or clean up by helper. Patient completes activity by themselves 4 Supervision or touching assist (CGA). [place] provide cues , steadying assist 3 The helper provides less than half the effort to complete the activity 2 The helper provides more than half the effort to complete the activity 1 Dependent. The helper does all the effort to complete an activity 7 Patient refused to complete or attempt activity 9 The patient did not perform the activity before the current illness or injury 88 Not attempted due to Medical conditions or safety concerns Transfers (B, C, W/C) (FIM): 6 Scootin Sit to/from Stand: 6 Weight Bearing Right Lower Extremity: Right Weight Bearing/Tolerated Left Lower Extremity: Left Weight Bearing/Tolerated Gait Training Gait (FIM): 6 Distance (FIM): 3=150 ft Distance: 150 Gait Level of Assist: 6 Gait Persons Needed: 1 Gait Assistive Device: FWW Assessment Current Status: Fair Progress Pt able to perform bed mobility mod I. Pt transfers from EOB to FWW mod I. Pt amb 150' with FWW and c/o dizziness so SPT instructed pt to return to room and not continue further. SPT instructed pt and assisted pt on putting his N/C back on and wearing it. Pt returned to bed and has all needs met. PT Short Term Goals Short Term Goals Time Frame: Oct 07, 2018 Transfers (B,C,W/C) (FIM): 7 Gait (FIM): 6 Distance (FIM): 3=150 ft Gait Distance Comment: 200' Gait Level of Assist: 6 Gait Assistive Device: FWW PT Plan Problem List Problem List: Activity Tolerance, Functional Strength, Safety, Balance, Gait, Transfer, Bed Mobility, ROM Treatment/Plan Treatment Plan: Continue Plan of Care Treatment Plan: Bed Mobility, Education, Functional Activity Kun, Functional Strength, Gait, Safety, Therapeutic Exercise, Transfers Treatment Duration: Oct 07, 2018 Frequency: 6 times per week Estimated Hrs Per Day: .25 hour per day Patient and/or Family Agrees t: Yes Time/GCodes Time In: 916 Time Out: 926 Total Billed Treatment Time: 10 Total Billed Treatment 1 visit FA 10 min ART SEYMOUR PT Oct 04, 2018 10:00
[2018-10-04] MEDS ORDERED: DIGOXIN 0.125 MG (LANOXIN) TAB PO NR (10:15)
[2018-10-04 12:00] VITALS: BP 117/81
--- NOTE | 2018-10-04 14:37 | Occupational Ther Daily Note ---
OT Current Status-Daily Note Subjective Pt alert, lying in bed. Pt agrees to therapy. Pt states that he feels more fuzzy than dizzy. Family present in room. Mental Status/Objective Patient Orientation: Person, Place, Time, Situation Therapy Code Descriptions/Definitions Functional [place] Measure: 0=Not Assessed/NA 4=Minimal Assistance 1=Total Assistance 5=Supervision or Setup 2=Maximal Assistance 6=Modified [place] 3=Moderate Assistance 7=Complete [place] Other Treatment Light resistance theraband and exercises given to pt to complete in room to increase UE strength for daily functional activities. Pt demonstrated ability to complete with good technique and 15+ reps in a row without breaks. Pt appeared fatigued after exercises. Pt stated that he had all the colors of theraband at home. After therapy, pt lying in bed with call light/phone in reach. All needs met in room. OT Short Term Goals Short Term Goals Time Frame: Oct 14, 2018 Transfers (B,C,W/C) (FIM): 7 Additional Short Term Goals: 1-Demonstrate ADL Tasks, 2-Verbalize Understanding , 3-ImproveStrength/Kun 1=Demonstrate adherence to instructed precautions during ADL tasks. 2=Patient will verbalize/demonstrate understanding of assistive devices/ modifications for ADL. 3=Patient will improve strength/tolerance for activity to enable patient to perform ADL's. OT Dean Of Student Services Goals Dean Of Student Services Goals Time Frame: Oct 28, 2018 Eating (FIM): 7 Grooming(FIM): 7 Bathing(FIM): 7 Bathing Location: L Arm, R Arm, L Upper Leg, R Upper Leg, L Lower Leg ( including foot), R Lower Leg (including foot), Chest, Abdomen, Buttocks, Perineal Area Upper Body Dressing(FIM): 7 Lower Body Dressing(FIM): 7 Toileting(FIM): 7 Transfers (B,C,W/C) (FIM): 7 Toilet/Commode Transfer(FIM): 7 Tub Transfer(FIM): 7 Shower Transfer(FIM): 7 Additional Goals: 1-Demonstrate ADL Tasks, 2-Verbalize Understanding, 3- ImproveStrength/Kun 1=Demonstrate adherence to instructed precautions during ADL tasks. 2=Patient will verbalize/demonstrate understanding of assistive devices/ modifications for ADL. 3=Patient will improve strength/tolerance for activity to enable patient to perform ADL's. OT Education/Plan Discharge Recommendations Plan/Recommendations: Continue POC Treatment Plan/Plan of Care Patient would benefit from OT for education, treatment and training to promote independence in ADL's, mobility, safety and/or upper extremity function for ADL' s. Plan of Care: ADL Retraining, Caregiver Training, Functional Mobility, UE Funct Exercise/Act, UE Neuromus Re-Ed/Coord Treatment Duration: Oct 28, 2018 Frequency: 5 times per week Estimated Hrs Per Day: .25 hour per day Rehab Potential: Good Time/GCodes Start Time: 13:50 Stop Time: 14:00 Total Time Billed (hr/min): 10 Billed Treatment Time 1 visit-EX 1 (10 min) VARSHA LAMBERT Oct 04, 2018 14:37
--- NOTE | 2018-10-04 14:39 | Progress Note-Hospitalist ---
Progress Note Progress Notes/Assess & Plan Date Seen 10/04/18 Time Seen by Provider: 14:35 Assessment & Plan The patient is a 78-year-old white male who presented at the emergency room with complaints of left leg swelling. Workup revealed this to be fluid in the chest x-ray was consistent with congestive heart failure. The patient had a significant right pleural effusion and a smaller on the left. Ejection fraction showed an estimated 35-40 percent. In addition there were elevated left ventricular end diastolic pressures. He has been placed on diuretics and has lost 7+ kilograms to this point. He reports that his leg which at first was swollen is no longer swollen and he is feeling better. He does state that he feels lightheaded and faint T when upright. Physical exam: He is pleasant and appears his stated age. Lungs are clear to auscultation. CV is irregular. Abdomen is soft. Extremities show no pedal edema at this time. Impression: Congestive heart failure. 2.reduced ejection fraction and elevated end-diastolic pressures. 3.atrial fibrillation with controlled rate. Plan: Continued diuretics. Adjust other medications ANGELA HEREDIA MD Oct 04, 2018 14:39
--- NOTE | 2018-10-04 15:10 | Pulmonary Progress Note ---
Sepsis Event Evaluation Height, Weight, BMI Height: 5'7.00" Weight: 161lbs. 3.2oz. 73.366334zb; 25.1 BMI Method:Stated Exam Exam Vital Signs Date Time Temp Pulse Resp B/P (MAP) Pulse Ox O2 Delivery O2 Flow Rate FiO2 10/04/18 13:00 86 10/04/18 12:00 98.9 86 18 117/81 (93) 96 Nasal Cannula 2.00 10/04/18 08:54 93 Room Air 10/04/18 08:00 93 Room Air 10/04/18 08:00 98.4 122 16 158/76 (103) 90 Nasal Cannula 2.00 10/04/18 07:00 107 10/04/18 04:00 97.2 83 16 145/95 (112) 97 Nasal Cannula 2.00 10/04/18 01:00 88 10/03/18 23:52 98.8 100 16 110/69 (83) 100 Nasal Cannula 2.00 10/03/18 20:35 Room Air 10/03/18 19:25 97.1 95 16 94/60 (71) 91 Room Air 10/03/18 19:00 89 10/03/18 17:52 97.2 85 16 95/54 (68) 95 Room Air 10/03/18 16:46 97.0 73 14 117/73 (88) 100 Room Air 10/03/18 15:56 97.7 55 16 98/63 (75) 92 Room Air I & O 10/04/18 07:00 Intake Total 1320 ml Balance 1320 ml Height & Weight Height: 5'7.00" Weight: 161lbs. 3.2oz. 73.910762vp; 25.1 BMI Method:Stated General Appearance: No Apparent Distress, Chronically ill Respiratory: Lungs Clear, No Accessory Muscle Use, No Respiratory Distress Cardiovascular: No Murmur, Irregularly Irregular Capillary Refill: Less Than 3 Seconds Extremity: No Calf Tenderness, Pedal Edema (L>R, slightly worse than yesterday) Neurologic/Psychiatric: Alert, Oriented x3 Skin: Normal Color, Warm/Dry Results Lab Laboratory Tests 10/03/18 05:54 10/04/18 04:55 Assessment/Plan Assessment/Plan Pulmonary edema with hypoxia -Oxygen - titrate to D/C if possible -Lasix Atelectasis -IS -Increase activity Afib RVR - now controlled -ASA CHFAE EF 30% -Lasix CKD -Monitor Hypotension Hypotheyroid NIDDM CKD -Monitor ISMAEL BERNARDO DO Oct 04, 2018 15:10
--- NOTE | 2018-10-04 16:04 | NUR ---
SPO2 86% ON ROOM AIR AT REST. PT HAD JUST GOT UP TO THE BATHROOM. WHEN HE GOT BACK TO BED SATS WERE LOW. REPLACED O2 @ 2 LPM. SPO2 INCREASED TO 95%. PT NOTIFIED THAT HE WILL NEED OXYGEN CONTINUOUSLY. PT DOES NOT WANT TO WEAR IT ALL THE TIME.
[2018-10-04 16:11] VITALS: BP 137/71
--- NOTE | 2018-10-04 16:35 | NUR ---
PATIENT AND REFUSED FOR THIS RN TO GIVE 3 UNITS OF INSULIN HE HAD JUST ATE A GIRL VOCATIONAL NURSE LVN COOKIE. THIS RN CHARTED THIS A REFUSAL FROM PATIENT HE FELT IS WAS A FALSE POSITIVE.
[2018-10-04 19:11] VITALS: BP 128/62
[2018-10-04] MEDS: DOXYCYCLINE 100 MG (VIBRAMYCIN) TABLET PO SCH (20:41)
[2018-10-04] MEDS: DONEPEZIL 10 MG (ARICEPT) TAB PO SCH (20:41)
[2018-10-05] VITALS: BP 137/60
[2018-10-05] MEDS: RT-ALBUTEROL SULF 2.5 MG/3 ML PRE-MIX VIAL INH SCH ×2 (02:35→09:52)
[2018-10-05 04:00] VITALS: BP 146/96
[2018-10-05 06:04] LABS: HEMOGLOBIN 11.2 G/DL (13.3-17.7); MEAN PLATELET VOLUME 9.4 FL (7.4-10.4); RED CELL DISTRIBUTION WIDTH 14.9 % (10.0-14.5); WHITE BLOOD COUNT 8.1 10^3/uL (4.3-11.0)
[2018-10-05 06:22] LABS: CALCIUM 8.6 MG/DL (8.5-10.1); CREATININE SERUM 1.4 MG/DL (0.60-1.30); MAGNESIUM 2.1 MG/DL (1.8-2.4); POTASSIUM 4.1 MMOL/L (3.6-5.0)
[2018-10-05] MEDS: KCL 20 MEQ TAB (K-DUR) PO SCH (06:22)
[2018-10-05] MEDS: inSUlin ASPART (NovoLOG) 1 UNIT/0.01 ML (CHARGE PER UNIT) SC SCH ×2 (06:22→11:39)
[2018-10-05] MEDS: LEVOTHYROXINE 25 MCG (LEVOTHROID) TAB PO SCH (06:22)
[2018-10-05 08:00] VITALS: BP 152/91
[2018-10-05] MEDS: TAMSULOSIN 0.4 MG (FLOMAX) CAP PO SCH (08:21)
[2018-10-05] MEDS: APIXABAN 2.5 MG (ELIQUIS) TABLET PO SCH (08:21)
[2018-10-05] MEDS: predniSONE 5 MG TAB PO SCH (08:21)
[2018-10-05] MEDS: FUROSEMIDE 40 MG (LASIX) TAB PO SCH (08:21)
[2018-10-05] MEDS: ASPIRIN 81 MG CHEW (CHILDREN'S ASA) PO SCH (08:22)
--- NOTE | 2018-10-05 08:52 | Pulmonary Progress Note ---
Subjective Time Seen by a Provider: 08:53 Subjective/Events-last exam No complications noted. Sepsis Event Evaluation Height, Weight, BMI Height: 5'7.00" Weight: 164lbs. 3.0oz. 74.604165gg; 25.1 BMI Method:Stated Exam Exam Vital Signs Date Time Temp Pulse Resp B/P (MAP) Pulse Ox O2 Delivery O2 Flow Rate FiO2 10/05/18 08:00 97 Nasal Cannula 2.00 10/05/18 07:00 92 10/05/18 04:00 99.0 94 18 146/96 (113) 97 Nasal Cannula 2.00 2.00 10/05/18 02:36 95 Nasal Cannula 2.00 10/05/18 01:00 90 10/05/18 00:00 98.0 98 18 137/60 (85) 93 Nasal Cannula 2.00 2.00 10/04/18 20:00 Nasal Cannula 2.00 10/04/18 19:56 96 Nasal Cannula 2.00 10/04/18 19:11 97.8 81 18 128/62 (84) 97 Nasal Cannula 2.00 10/04/18 19:00 109 10/04/18 16:11 97.6 95 20 137/71 (93) 96 Nasal Cannula 2.00 10/04/18 16:04 95 Nasal Cannula 2.00 10/04/18 13:00 86 10/04/18 12:00 98.9 86 18 117/81 (93) 96 Nasal Cannula 2.00 10/04/18 08:54 93 Room Air I & O 10/05/18 07:00 Intake Total 1130 ml Output Total 100 ml Balance 1030 ml Height & Weight Height: 5'7.00" Weight: 164lbs. 3.0oz. 74.336056bl; 25.1 BMI Method:Stated General Appearance: No Apparent Distress, Chronically ill Respiratory: Lungs Clear, No Accessory Muscle Use, No Respiratory Distress Cardiovascular: No Murmur, Irregularly Irregular Capillary Refill: Less Than 3 Seconds Extremity: No Calf Tenderness, Pedal Edema (L>R, slightly worse than yesterday) Neurologic/Psychiatric: Alert, Oriented x3 Skin: Normal Color, Warm/Dry Results Lab Laboratory Tests 10/04/18 04:55 10/05/18 05:50 Assessment/Plan Assessment/Plan Pulmonary edema with hypoxia -Oxygen - PT will probably need home 02 -Lasix Atelectasis -IS -Increase activity Afib RVR - now controlled -ASA CHFAE EF 30% -Lasix CKD -Monitor Hypothyroid NIDDM CKD -Monitor Pt is ok from pulmonary standpoint for discharge. He will probably need home 02 upon discharge. ISMAEL BERNARDO DO Oct 05, 2018 08:52
[2018-10-05] MEDS ORDERED: DIGOXIN 0.25 MG (LANOXIN) TAB PO SCH (09:00)
--- NOTE | 2018-10-05 09:59 | NUR ---
CM/SS, respond to consult regarding home O2. Patient has established O2 service already with [facility] [place]. Farmworker Fur confirmed with eda/Miah that they have order on file for continuous O2 which is what patient requires per testing. Family has brought a portable to hospital room for his transport home when medically stable for discharge. Spouse at bedside, she indicates he has FWW but that he does not use it as he should. Additionally, patient reportedly told RT staff yesterday that he does not want to wear O2 continuously but that he does wear it at night. They identify no additional needs at this time.
--- NOTE | 2018-10-05 10:03 | Physical Therapy Daily Note ---
PT Daily Note-Current Subjective Pt in bed with N/C in at O2 2L. Pt agrees to PT and is in room. Pain Numeric Pain Scale: 0-No Pain Location: No Pain Reported Mental Status Patient Orientation: Person, Place, Situation, Normal For Age Attachments: Oxygen (2L) Transfers Therapy Code Descriptions/Definitions Functional [place] Measure: 0=Not Assessed/NA 4=Minimal Assistance 1=Total Assistance 5=Supervision or Setup 2=Maximal Assistance 6=Modified [place] 3=Moderate Assistance 7=Complete [place] Therapy Quality Codes: 6 Independent with activity with or without an assistive device 5 Patient requires set up or clean up by helper. Patient completes activity by themselves 4 Supervision or touching assist (CGA). [place] provide cues , steadying assist 3 The helper provides less than half the effort to complete the activity 2 The helper provides more than half the effort to complete the activity 1 Dependent. The helper does all the effort to complete an activity 7 Patient refused to complete or attempt activity 9 The patient did not perform the activity before the current illness or injury 88 Not attempted due to Medical conditions or safety concerns Transfers (B, C, W/C) (FIM): 6 Supine to/from Sit: 6 Sit to/from Stand: 6 Weight Bearing Right Lower Extremity: Right Weight Bearing/Tolerated Left Lower Extremity: Left Weight Bearing/Tolerated Gait Training Gait (FIM): 5 Distance (FIM): 3=150 ft Distance: 600' Gait Level of Assist: 5 Gait Persons Needed: 1 Gait Assistive Device: FWW Assessment Current Status: Good Progress Pt performs all bed mobility mod I. Pt transfers from EOB to FWW mod I. Pt was able to perform amb with FWW and SBA with O2 2L. SPT instructed pt to remain within FWW and not let it get too far away from him. Pt was able to follow instruction. Pt returned to room and transferred back to bed. SPT check SaO2 and it was at 97% upon completion of amb. SPT instructed pt that it was able to stay up because he was wearing the O2. Pt has all needs met and is in room. PT Short Term Goals Short Term Goals Time Frame: Oct 07, 2018 Transfers (B,C,W/C) (FIM): 7 Gait (FIM): 6 Distance (FIM): 3=150 ft Gait Distance Comment: 200' Gait Level of Assist: 6 Gait Assistive Device: FWW PT Plan Problem List Problem List: Activity Tolerance, Functional Strength, Safety, Balance, Gait, Transfer, Bed Mobility Treatment/Plan Treatment Plan: Continue Plan of Care Treatment Plan: Bed Mobility, Education, Functional Activity Kun, Functional Strength, Gait, Safety, Therapeutic Exercise, Transfers Treatment Duration: Oct 07, 2018 Frequency: 6 times per week Estimated Hrs Per Day: .25 hour per day Patient and/or Family Agrees t: Yes Time/GCodes Time In: 905 Time Out: 916 Total Billed Treatment Time: 11 Total Billed Treatment 1 visit FA 11 min ART SEYMOUR PT Oct 05, 2018 10:03
--- NOTE | 2018-10-05 10:14 | Progress Note-Cardiology ---
Cardiology SOAP Progress Note Subjective: Sitting up in bed. States dizziness has resolved. No c/o CP or palpitations. Wants to go home. States he has been up ambulating in the halls without difficulty. Objective: I&O/Vital Signs 10/05/18 10/05/18 10/05/18 10/05/18 00:00 01:00 02:36 04:00 Temp 98.0 99.0 Pulse 98 90 94 Resp 18 18 B/P (MAP) 137/60 (85) 146/96 (113) Pulse Ox 93 95 97 O2 Delivery Nasal Cannula Nasal Cannula Nasal Cannula O2 Flow Rate 2.00 2.00 2.00 2.00 2.00 10/05/18 10/05/18 10/05/18 10/05/18 07:00 08:00 08:00 09:52 Temp 97.1 Pulse 92 70 Resp 18 B/P (MAP) 152/91 (111) Pulse Ox 97 96 96 O2 Delivery Nasal Cannula Nasal Cannula Nasal Cannula O2 Flow Rate 2.00 2.00 2.00 10/05/18 00:00 Intake Total 1030 ml Balance 1030 ml Weight (Pounds): 164 Weight (Ounces): 3.0 Weight (Calculated Kilograms): 74.018442 Constitutional: AAO x 3, well-developed, well-nourished Respiratory: No accessory muscle use, No respiratory distress; chest expansion is symmetric, chest is bilaterally symmetric, rhonchi (scattered) Cardiovascular: irregularly irregular; No JVD; systolic murmur Gastrointestional: No tender; round, audible bowel sounds Extremities: other (Mild bilat LE swelling) Neurologic/Psychiatric: oriented x 3, grossly intact Skin: No rash, No ulcerations Results/Procedures: Labs Laboratory Tests 10/04/18 16:13: Glucometer 224H 10/04/18 20:07: Glucometer 237H 10/05/18 05:50: White Blood Count 8.1, Red Blood Count 3.92L, Hemoglobin 11.2L, Hematocrit 35L, Mean Corpuscular Volume 90, Mean Corpuscular Hemoglobin 29, Mean Corpuscular Hemoglobin Concent 32, Red Cell Distribution Width 14.9H, Platelet Count 233, Mean Platelet Volume 9.4, Sodium Level 141, Potassium Level 4.1, Chloride Level 105, Carbon Dioxide Level 26, Anion Gap 10, Blood Urea Nitrogen 28H, Creatinine 1.40H, Estimat Glomerular Filtration Rate 49, BUN/Creatinine Ratio 20, Glucose Level 111H, Calcium Level 8.6, Magnesium Level 2.1, Digoxin Level 1.10 10/05/18 06:22: Glucometer 112H Microbiology 10/01/18 Influenza Types A,B Antigen (LEON) - Final, Complete A/P: Assessment: Dilated cardiomyopathy with CHF, acute on chronic systolic - clinically improved Intolerance to beta-charleen and PARISH-inhib and ARB due to markedly symptomatic hypotension Intolerance to statin due to gen muscle and body discomfort Card cath of 10/03/18: mod diffuse CAD, up to 60% mid LAD (bifurcation involved), LVEDP 20 mmHg, LVEF 35-40% Echo of 09/29/18: LVEF 30-35%, global hypokinesis, mod MR, mod TR, PASP 40 mmHg Chronic a-fib (pt reports 30 years) - rate improved LLE swelling of undetermined etiology, no Doppler evidence of DVT on 09/29/18 Mild troponin elevation at time of presentation on 09/29/18, likely due to transient hypotension and hypoxemia and A Fib with RVR, probably Type 2 [place] H/O TIA's in the past Reported h/o GI bleed in the past for which he has undergone endoscopy and no source was found (per pt). Has previously refused OAC, but agreed to it during this hosp DM II Chronic back pain - states relatively inactive at home d/t pain Hypothyroidism - replacement tx CKD 3, prob diabetic nephropathy Plan: * Complex management due to multiple comorbidities * Orthostatic hypotension for which he is symptomatic - therefore not a suitable candidate for PARISH, ARB or BB tx * HR improved with increased dose of Dig * Continue aspirin for CAD * Apixaban for stroke prophylaxis * Continue statin for CAD * OK to discharge home from cardiac stand point * F/U appt in 2 weeks * Lab in 2 weeks: Dig level and BMP Physician Assessment Physician Assessment Feels much better compared to time of admission. Is able to ambulate. Denies cp or palp or syncope or shortness of breath VSS. SBP upon standing yesterday was 88 mmHg (considerable postural drop). Today , this has stabilized Lungs: good bilat air entry Cor: irreg Ext: no c/c/e A&R * As documented in our note above that I updated (italics) and as noted below * I reviewed in detail with him and his family (on 10/04/18) his previous cardiac regimen that he had not been able to tolerate. Several med adjustments were made. He is tolerating the current regimen well * Close outpt f/u is advised * We advised compliance with current meds and outpt f/u * I discussed his case in detail with Dr Hay this am * I discussed his case in detail with him and his family TONY HOLLIDAY WAREHOUSE ASSEMBLY WORKER Oct 05, 2018 10:14 SAMANTHA LOYOLA MD FACP [facility] Oct 05, 2018 11:07
[2018-10-05] MEDS ORDERED: FURO40TA4 PO (10:17)
[2018-10-05] MEDS ORDERED: DIGO250T15 PO (10:17)
[2018-10-05] MEDS ORDERED: APIX2.5T PO (10:17)
[2018-10-05] MEDS ORDERED: POTA20TA8 PO (10:17)
[2018-10-05] MEDS ORDERED: ASPI-999 PO (10:17)
--- NOTE | 2018-10-05 11:50 | NUR ---
Important Message from Medicare presented/reviewed/signed and charted. Patient and family voiced no intention to appeal and deny any needs or further questions at this time.
[2018-10-05 12:00] VITALS: BP 148/88
--- NOTE | 2018-10-05 12:58 | Progress Note-Hospitalist ---
Progress Note Progress Notes/Assess & Plan Date Seen 10/05/18 Time Seen by Provider: 12:52 Assessment & Plan The patient is doing much better today. SAMANTHA Tamayo adjusted his medications yesterday and he is no longer suffering from orthostatic hypotension. He has been cleared for discharge by SAMANTHA Tamayo. To this point he has lost 13 pounds by diuresis and his breathing much better. The patient believes that the edema in his left leg is now completely resolved. Physical exam: The patient is alert and oriented Lungs are clear to auscultation with distant breath sounds. CV is irregular consistent with atrial fibrillation. Legs show no palpable edema. Impression: Congestive heart failure. 2.mixed etiology: Diastolic dysfunction and moderate systolic dysfunction. 3.COPD. Plan: Discharge. SEE discharge sequence for medications and routines. ANGELA HEREDIA MD Oct 05, 2018 12:58
--- NOTE | 2018-10-05 13:01 | Discharge Inst-Simple/Standard ---
Discharge Inst-Standard Patient Instructions/Follow Up Plan of Care/Instructions/FU: Medications as listed in the discharge sequence. Weighed daily. If greater than 2 pounds gain in a day report to SAMANTHA Tamayo. Appointment SAMANTHA Tamayo as scheduled. Activity as Tolerated: Yes Goal: Improvement performance on the basis of diuresis and treatment of congestive heart failure. Discharge Diet: Low Sodium Diet Return to The Hospital For: Increasing shortness of breath ANGELA HEREDIA MD Oct 05, 2018 13:01
--- NOTE | 2018-10-05 14:15 | NUR ---
Pastoral care visit, offered prayer and support.
== END 2018-10-05 15:30 | disposition home or self-care (01) | DRG 286 ==
LOC: ER FS 10:01 → ICU 12:19 → UNDOADMIN 12:19 → 4TH 10-01 15:05
PROVIDERS: ADMIT Family Medicine; ATTEND Family Medicine
PROC: 4A023N7 Measurement of Cardiac Sampling and Pressure, Left Heart, Percutaneous Approach (ICD-10-PCS; principal; 2018-10-03)
PROC: B2151ZZ Fluoroscopy of Left Heart using Low Osmolar Contrast (ICD-10-PCS; 2018-10-03)
PROC: B2111ZZ Fluoroscopy of Multiple Coronary Arteries using Low Osmolar Contrast (ICD-10-PCS; 2018-10-03)
DX: I48.0 Paroxysmal atrial fibrillation (principal); I50.23 Acute on chronic systolic (congestive) heart failure; J81.1 Chronic pulmonary edema; J98.11 Atelectasis; N17.9 Acute kidney failure, unspecified; I42.0 Dilated cardiomyopathy; I95.1 Orthostatic hypotension; R09.02 Hypoxemia; I25.10 Atherosclerotic heart disease of native coronary artery without angina pectoris; R79.89 Other specified abnormal findings of blood chemistry; E11.21 Type 2 diabetes mellitus with diabetic nephropathy; N18.3 Chronic kidney disease, stage 3 (moderate); I08.1 Rheumatic disorders of both mitral and tricuspid valves; E03.9 Hypothyroidism, unspecified; M54.9 Dorsalgia, unspecified; R41.0 Disorientation, unspecified; Z79.84 Long term (current) use of oral hypoglycemic drugs; Z79.82 Long term (current) use of aspirin; Z91.14 Patient's other noncompliance with medication regimen; Z86.73 Personal history of transient ischemic attack (TIA), and cerebral infarction without residual deficits
CPT/HCPCS: 36415; 71045; 71250; 80048; 80053; 80061; 80162; 81000; 82962; 83690; 83735; 83880; 84100; 84145; 84443; 84484; 85025; 85027; 85379; 85610; 87081; 87804; 90471; 90686; 93005; 93306; 93458; 94640; 94760; 94799; 96372

== ENCOUNTER → 2019-01-24 | Outpatient (CLI) | payer MEDICARE ==
[~2019-01-24] MED LIST: ALBU2.5V4 NEB; APIX2.5T PO; ASCO500T6 PO; ASPI-999 PO; ASPI325T32 PO; BENZ-36 PO; BENZ200C51 PO; DIGO250T15 PO; DONE10TA41 PO; DOXY100C2 PO; FAMO20TA3 PO; FURO40TA4 PO; GLIP-173 PO; LEVO25TA5 PO; METF750T2 PO; OXYM30SP NS; POTA20TA8 PO; PRED5TAB PO; RT-ALBUINH IH; TAMS0.4C2 PO
[2019-01-24 08:43] LABS: HEMATOCRIT 41 % (40-54); MEAN CORPUSCULAR HEMOGLOBIN 29 PG (25-34); MEAN CORPUSCULAR HGB CONC 32 G/DL (32-36); MEAN CORPUSCULAR VOLUME 91 FL (80-99); MEAN PLATELET VOLUME 9.7 FL (7.4-10.4); PLATELET COUNT 256 10^3/uL (130-400); RED CELL DISTRIBUTION WIDTH 14.3 % (10.0-14.5); WHITE BLOOD COUNT 10.7 10^3/uL (4.3-11.0)
[2019-01-24 08:44] LABS: BASOPHILS # (AUTO) 0.1 10^3/uL (0.0-0.1); BASOPHILS % (AUTO) 1 % (0-10); EOSINOPHILS # (AUTO) 0.3 10^3/uL (0.0-0.3); EOSINOPHILS % (AUTO) 2 % (0-10); LYMPHOCYTES % (AUTO) 19 % (12-44); MONOCYTES # (AUTO) 0.9 X 10^3 (0.0-1.0); MONOCYTES % (AUTO) 9 % (0-12); NEUTROPHILS # (AUTO) 7.4 X 10^3 (1.8-7.8); NEUTROPHILS % (AUTO) 69 % (42-75)
[2019-01-24 09:48] LABS: CALCIUM 9.1 MG/DL (8.5-10.1); CREATININE SERUM 1.47 MG/DL (0.60-1.30); POTASSIUM 4.3 MMOL/L (3.6-5.0)
[2019-01-24 09:49] LABS: MAGNESIUM 2.2 MG/DL (1.8-2.4)
== END ==
LOC: LAB FS 08:18
PROVIDERS: ATTEND Internal Medicine Cardiovascular Disease
DX: N18.3 Chronic kidney disease, stage 3 (moderate) (principal); E11.22 Type 2 diabetes mellitus with diabetic chronic kidney disease; I42.0 Dilated cardiomyopathy; I25.10 Atherosclerotic heart disease of native coronary artery without angina pectoris; I50.22 Chronic systolic (congestive) heart failure; Z86.73 Personal history of transient ischemic attack (TIA), and cerebral infarction without residual deficits
CPT/HCPCS: 36415; 80048; 80162; 83735; 85025

== ENCOUNTER 2019-03-30 10:19 | Day surgery (SDC) | payer MEDICARE ==
[~2019-03-30] VITALS: Ht 170.2 cm; Wt 74.5 kg
[2019-03-30] VITALS (18 sets, daily range): BP systolic 88–149; BP diastolic 50–76
[~2019-03-30 10:19] MED LIST changes: +DIGO125T PO; +TAMS0.4C98 PO
[2019-03-30] MEDS ORDERED: NS IV 500 ML 500 ML ONE (10:20)
--- NOTE | 2019-03-30 10:45 | Conscious Sedation/ASA ---
Conscious Sedation Pre-Proced Time 10:45 ASA Score 2 For ASA 3 and 4: Consider anesthesia and medical clearance. Also, for patients with a history of failed moderate sedation consider anesthesia. Airway Lungs Heart ASA score ASA 1: a normal healthy patient ASA 2: a patient with a mild systemic disease (mid diabetes, controlled hypertension, obesity ASA 3: a patient with a severe systemic disease that limits activity (angina, COPD, prior Myocardial infarction) ASA 4: a patient with an incapacitating disease that is a constant threat to life (CHF, renal failure) ASA 5: a moribund patient not expected to survive 24 hrs. (ruptured aneurysm) ASA 6: a declared brain- patient whose organs are being harvested. For emergent operations, add the letter E after the classification Mallampati Classification Grade 2 Sedation Plan Analgesia, Amnesia, Plan communicated to team members, Discussed options with patient/fam, Discussed risks with patient/fam The patient is an appropriate candidate to undergo the planned procedure, sedation, and anesthesia. The patient immediately re-assessed prior to indication. ALEX OHARA MD Mar 30, 2019 10:45
--- NOTE | 2019-03-30 10:46 | Progress Note-Pre Operative ---
Pre-Operative Progress Note H&P Reviewed The H&P was reviewed, patient examined and no changes noted. Date Seen by Provider: Mar 30, 2019 Time Seen by Provider: 10:45 Date H&P Reviewed: Mar 30, 2019 Time H&P Reviewed: 10:45 Pre-Operative Diagnosis: rectal bleed ALEX OHARA MD Mar 30, 2019 10:46
--- NOTE | 2019-03-30 10:48 | Discharge Inst-Surgical ---
D/C Lap Instructions-MAYDA Follow Up Activity as tolerated High Fiber Diet 25g or more per day Avoid Alcohol, Caffeine, Spicy Rover and Acid foods. Drink 64 fluid oz or more of fluids per day. Symptoms to Report: Fever over 101 degree F, Nausea/Vomiting If any problems/questions: Contact your physician or go to Emergency Room ALEX OHARA MD Mar 30, 2019 10:48
[2019-03-30] MEDS ORDERED: LIDOCAINE JELLY 2% 6 ML SYRINGE ONE (10:55)
[2019-03-30] MEDS ORDERED: MIDAZOLAM 2 MG/2 ML (VERSED) VIAL ONE ×2 (10:55)
[2019-03-30] MEDS ORDERED: fentaNYL INJECTION 100 MCG/2 ML AMP ONE (10:55)
[2019-03-30] MEDS ORDERED: ACETAMINOPHEN 325 MG TABLET PO PRN (11:00)
[2019-03-30] MEDS ORDERED: morphine INJ 10 MG/ML 1ML (SYR OR VIAL) IVP PRN ×2 (11:00)
[2019-03-30] MEDS ORDERED: ONDANSETRON 4 MG/2 ML (SDV) Z0FRAN IVP PRN (11:00)
[2019-03-30] MEDS ORDERED: HYDROcodone/APAP 5 MG/325 MG (LORTAB) TAB PO PRN (11:00)
[2019-03-30] MEDS ORDERED: NS IV 500 ML 500 ML IV PRN (11:07)
[2019-03-30] MEDS ORDERED: LIDOCAINE JELLY 2% 6 ML SYRINGE MM PRN (11:15)
[2019-03-30] MEDS ORDERED: MIDAZOLAM 2 MG/2 ML (VERSED) VIAL IVP ONE (11:15)
[2019-03-30] MEDS ORDERED: fentaNYL INJECTION 100 MCG/2 ML AMP IVP ONE (11:15)
--- NOTE | 2019-03-30 13:01 | Progress Note-Post Operative ---
Post-Operative Progess Note Surgeon (s)/Tree Killer (s) Surgeon ALEX OHARA MD Tree Killer: none Pre-Operative Diagnosis rectal bleed Post-Operative Diagnosis chronic stage 2-3 ext and int hemorrhoids, severe sigmoid and descending colonic diverticulosis, polyp rectum(4mm), polyp transverse colon(3mm). Procedure & Operative Findings Date of Procedure 03/30/19 Procedure Performed/Findings colonoscopy with snare polypectomy Anesthesia Type cs Estimated Blood Loss Estimated blood loss (mL): minimal Specimens/Packing Specimens Removed polyp rectum and transverse colon ALEX OHARA MD Mar 30, 2019 13:01
--- NOTE | 2019-03-30 17:18 | OPERATIVE REPORT ---
DATE OF SERVICE: 03/30/2019 ATTENDING PRIMARY CARE PHYSICIAN: Dr. Watson. PREOPERATIVE DIAGNOSIS: Rectal bleed. POSTOPERATIVE DIAGNOSES: Chronic stage II external and internal hemorrhoids, severe sigmoid and descending colonic diverticulosis, 4 mm polyp of the rectum, 3 mm polyp of the transverse colon, both appear to be adenomatous polyps. No active bleeding identified. PROCEDURE: Colonoscopy with snare polypectomy. SURGEON: Dr. Malik. ANESTHESIA: Conscious sedation. ESTIMATED BLOOD LOSS: Minimal. FINDINGS: Chronic stage II external and internal hemorrhoids, severe sigmoid and descending colonic diverticulosis, 4 mm polyp of the rectum, 3 mm polyp of the transverse colon, both appear to be adenomatous polyps. No active bleeding identified. DISPOSITION: The patient tolerated the procedure well. INDICATIONS: The patient is a 78-year-old male, who was referred over to us for a 2-month history of bright red blood per rectum mixed with his stools. He states that he has had this on intermittent basis for some time now. His last colonoscopy was in 2007 and he believes this to be normal. He does not report any family history of colon cancer. He is on blood thinners for atrial fibrillation with aspirin as well as Eliquis. DESCRIPTION OF PROCEDURE: The patient was brought to the endoscopy suite, laid in the left lateral decubitus position. After adequate IV pain and sedative medications and conscious sedation anesthesia, a digital rectal examination was performed. There was chronic stage II external and internal hemorrhoids, not actively edematous nor inflamed and no bleeding. Normal sphincter tone was felt and there were no palpable masses. The prostate gland was enlarged; however, there were no palpable masses or nodules. The endoscope was then intubated to the anus and rectum gently insufflated. The endoscope was then advanced to the valves of Hillman of the rectum. At the proximal rectum, a pedunculated adenomatous polyp approximately 4 mm in size was identified. This was snared using cautery and sent to pathology. The endoscope was then advanced to the sigmoid and descending colon, where [id number] diverticulosis identified. There were no inflammatory changes to indicate any active diverticulitis. There was no active bleeding as well. The endoscope was then advanced to the transverse colon where another pedunculated polyp, which appeared to be an adenomatous polyp approximately 3 mm in size was identified. This was removed by snare polypectomy. The endoscope was then advanced to the remainder of the transverse and ascending colon to the cecum. These segments were normal. The endoscope was then slowly withdrawn while taking a second look and suctioning of residual air with no additional findings. The patient tolerated the procedure well. We will await the biopsy results to determine his next colonoscopy. If there is any villous component of these adenomatous polyps, he will need a followup colonoscopy in 3 years; however, if there is not and this is just a tubular adenoma, he may wait longer. Job ID: [id number] DocumentID: [id number] Dictated Date: 03/30/2019 12:23:59 Sales Executive Date: 03/30/2019 17:17:34 Dictated By: ALEX MALIK MD
== END 2019-03-30 13:10 | disposition home or self-care (01) ==
LOC: ENDO 10:19
PROVIDERS: ATTEND Surgery
DX: D12.3 Benign neoplasm of transverse colon (principal); D12.8 Benign neoplasm of rectum; K62.5 Hemorrhage of anus and rectum; K64.8 Other hemorrhoids; K64.1 Second degree hemorrhoids; K57.30 Diverticulosis of large intestine without perforation or abscess without bleeding; K62.89 Other specified diseases of anus and rectum; I48.91 Unspecified atrial fibrillation; I50.9 Heart failure, unspecified; E03.9 Hypothyroidism, unspecified; E11.22 Type 2 diabetes mellitus with diabetic chronic kidney disease; J45.909 Unspecified asthma, uncomplicated; N18.3 Chronic kidney disease, stage 3 (moderate); N40.0 Benign prostatic hyperplasia without lower urinary tract symptoms; Z90.49 Acquired absence of other specified parts of digestive tract; Z79.82 Long term (current) use of aspirin; Z79.01 Long term (current) use of anticoagulants; Z79.899 Other long term (current) drug therapy; Z86.73 Personal history of transient ischemic attack (TIA), and cerebral infarction without residual deficits
CPT/HCPCS: 88305

== ENCOUNTER 2020-03-05 14:47 | Emergency (ER) | payer MEDICARE ==
[~2020-03-05 14:47] MED LIST changes: +ASCO500T17 PO; -ASCO500T6 PO; -DIGO125T PO; +DIGO125T3 PO; -METF750T2 PO; +METF750T45 PO; -OXYM30SP NS; +OXYM30SP25 NS; -TAMS0.4C98 PO; +TMSL.4C PO
--- NOTE | 2020-03-05 15:13 | ED Neurological Problem ---
General Chief Complaint: Neuro-Stroke Like Symptoms Stated Complaint: FACIAL DROOPING Nursing Triage Note: Patient here with daughter for facial drooping that started 15 minutes prior to arrival. She had brought for a doctors visit for episodes of weakness and passing out over the past two weeks. While at the doctors office, he started having facial drooping. Patient is alert but states he is having left sided weakness. Nursing Sepsis Screen: No Definite Risk Source: patient Exam Limitations: no limitations History of Present Illness Date Seen by Provider: Mar 05, 2020 Time Seen by Provider: 15:00 Initial Comments The patient is a pleasant 79-year-old male presents with his daughter for evaluation of facial drooping which started at approximately 1445 today. The patient has been experiencing episodes of weakness and passing out over the last few weeks and they had made a doctor's appointment today. While they were in the waiting room the patient started to have acute facial drooping and left-sided weakness. He also started to experience some dysarthria. The patient has a history of atrial fibrillation and takes aspirin but no anticoagulants. Per the patient's daughter he may have had a TIA in the past but they're unsure, but nothing recently. The patient denies any pain, fevers or chills, cough or chest pain, shortness of breath, headache, vision changes, nausea or vomiting. He is alert and answering questions appropriately the patient used to take AHLQUIST but has not taken it since August. Timing/Duration: other (1445) Severity: moderate Associated Symptoms: No fever/chills; slurred speech, weakness Allergies and Home Medications Allergies Coded Allergies: No Known Drug Allergies (Unverified , 03/28/19) Home Medications Albuterol Sulfate 1 Puff Puff, 2 PUFF IH Q4H PRN for SHORTNESS OF BREATH, (Reported) Albuterol Sulfate 2.5 Mg/3 Ml Vial.neb, 2.5 MG NEB Q4H PRN for SHORTNESS OF BREATH, (Reported) Apixaban 2.5 Mg Tablet, 2.5 MG PO DAILY, (Reported) Ascorbic Acid 500 Mg Tablet, 500 MG PO BID, (Reported) Aspirin 81 Mg Tab.chew, 81 MG PO DAILY Prescribed by: TONY HOLLIDAY on 10/05/18 1017 Benzonatate 200 Mg Capsule, 200 MG PO TID PRN for COUGH, (Reported) Digoxin 125 Mcg Tablet, 125 MCG PO DAILY, (Reported) Donepezil HCl 10 Mg Tablet, 10 MG PO HS, (Reported) Furosemide 40 Mg Tablet, 40 MG PO DAILY Prescribed by: TONY HOLLIDAY on 10/05/18 1017 Glipizide 10 Mg Tab.er.24, 10 MG PO DAILY, (Reported) Levothyroxine Sodium 25 Mcg Tablet, 25 MCG PO DAILY, (Reported) Metformin HCl 750 Mg Tab.er.24h, 750 MG PO DAILY PRN for HYPERGLYCEMIA, (Reported) Potassium Chloride 20 Meq Tab.er.prt, 20 MEQ PO DAILY@0700 Prescribed by: TONY HOLLIDAY on 10/05/18 1017 Prednisone 5 Mg Tablet, 5 MG PO DAILY, (Reported) Tamsulosin HCl 0.4 Mg Cap, 0.4 MG PO DAILY, (Reported) Patient Home Medication List Home Medication List Reviewed: Yes Review of Systems Review of Systems Constitutional: malaise Eyes: No Symptoms Reported Ears, Nose, Mouth, Throat: no symptoms reported Respiratory: no symptoms reported Cardiovascular: no symptoms reported Gastrointestinal: no symptoms reported Genitourinary: no symptoms reported Musculoskeletal: no symptoms reported Skin: no symptoms reported Psychiatric/Neurological: Weakness (left-sided weakness, facial droop, dysarthria) Endocrine: No Symptoms Reported Hematologic/Lymphatic: No Symptoms Reported All Other Systems Reviewed Negative Unless Noted: Yes Past Sqhxuve-Fsboxy-Pnxerg Hx Past Med/Social Hx: Reviewed Nursing Past Med/Soc Hx Patient Social History 2nd Hand Smoke Exposure: No Recent Foreign Travel: No Contact w/Someone Who Travel: No Recent Infectious Disease Expo: No Recent Hopitalizations: No Immunizations Up To Date Date of Pneumonia Vaccine: Sep 29, 2017 Seasonal Allergies Seasonal Allergies: No Past Medical History Surgeries: Yes (BACK SURGERY X2) Gallbladder Respiratory: Yes (O2 AT NIGHT) COPD Cardiac: Yes Atrial Fibrillation, Hypotension Neurological: Yes TIA Sexually Transmitted Disease: No HIV/AIDS: No Genitourinary: Yes (Prostatitis) Renal Failure Gastrointestinal: No (BLOOD IN STOOLS) Musculoskeletal: No Endocrine: Yes Diabetes, Non-Insulin dep HEENT: No Loss of Vision: Denies Hearing Impairment: Denies Cancer: No Psychosocial: No Integumentary: No Blood Disorders: No Adverse Reaction/Blood Tranf: No (HAS HAD BLOOD WITH NO REACTION) Family Medical History No Pertinent Family Hx Physical Exam Vital Signs Vital Signs - First Documented 03/05/20 03/05/20 14:59 16:32 Temp 36.1 Pulse 127 Resp 17 B/P (MAP) 153/81 (105) Pulse Ox 96 Capillary Refill : Less Than 3 Seconds Height, Weight, BMI Height: 5'7.00" Weight: 164lbs. 3.0oz. 74.012127sv; BMI Method:Stated General Appearance: WD/WN, no apparent distress HEENT: PERRL/EOMI, pharynx normal, other (right facial droop) Neck: full range of motion, normal inspection Respiratory: lungs clear, normal breath sounds, no respiratory distress, no accessory muscle use Cardiovascular: no edema, no JVD, tachycardia, irregularly irregular Gastrointestinal: normal bowel sounds, non tender, soft, no pulsatile mass Extremities: non-tender, normal inspection, no pedal edema, normal capillary refill Neurologic/Psychiatric: alert, normal mood/affect, other (5-/5 strength on left arm and leg, 5/5 on right side, +dysarthria present, mild drift in left arm and left leg) Crainal Nerves: normal hearing, PERRL Skin: normal color, warm/dry Stroke Onset of Symptoms Date of Onset of Symptoms: Mar 05, 2020 Time of Symptom Onset: 14:45 Onset of Symptoms: Yes NIH Stroke Scale Assessment Select: Initial Level of Consciousness: 0=Alert (0), Level of Consciousness- Questions: 0=Answers both month/age (0), LOC Commands: 0=Performs both tasks (0), Gaze: Normal (0), Visual Moise: 0=No visual loss (0), Facial Movement (Facial Paresis): 2=Partial paralysis (2), Motor Function-Arms Right: 0=No drift (0), Motor Function-Arms Left: 1=Drift (1), Motor Function-Legs Right: 0=No drift (0), Motor Function-Legs Left: 1=Drift (1), Limb Ataxia: 2=Present in two limbs (2), Sensory: 0=Normal:no loss (0), Best Language: 0=No aphasia (0), Dysarthria: 1=Mild to moderate loss (1), Extinction & Inattention: 0=No abnormality (0), Total: 7 Progress/Results/Core Measures Results/Orders Lab Results Laboratory Tests Test 03/05/20 15:10 03/05/20 15:35 Range/Units White Blood Count 12.3 H 4.3-11.0 10^3/uL Red Blood Count 4.50 4.35-5.85 10^6/uL Hemoglobin 13.6 13.3-17.7 G/DL Hematocrit 42 40-54 % Mean Corpuscular Volume 94 80-99 FL Mean Corpuscular Hemoglobin 30 25-34 PG Mean Corpuscular Hemoglobin Concent 32 32-36 G/DL Red Cell Distribution Width 13.9 10.0-14.5 % Platelet Count 271 130-400 10^3/uL Mean Platelet Volume 9.8 7.4-10.4 FL Neutrophils (%) (Auto) 74 42-75 % Lymphocytes (%) (Auto) 18 12-44 % Monocytes (%) (Auto) 7 0-12 % Eosinophils (%) (Auto) 1 0-10 % Basophils (%) (Auto) 0 0-10 % Neutrophils # (Auto) 9.1 H 1.8-7.8 X 10^3 Lymphocytes # (Auto) 2.2 1.0-4.0 X 10^3 Monocytes # (Auto) 0.9 0.0-1.0 X 10^3 Eosinophils # (Auto) 0.2 0.0-0.3 10^3/uL Basophils # (Auto) 0.1 0.0-0.1 10^3/uL Prothrombin Time 12.8 12.2-14.7 SEC INR Comment 0.9 0.8-1.4 Activated Partial Thromboplast Time 26 24-35 SEC D-Dimer 0.45 0.00-0.49 UG/ML Sodium Level 137 135-145 MMOL/L Potassium Level 4.0 3.6-5.0 MMOL/L Chloride Level 98 98-107 MMOL/L Carbon Dioxide Level 22 21-32 MMOL/L Anion Gap 17 H 5-14 MMOL/L Blood Urea Nitrogen 22 H 7-18 MG/DL Creatinine 1.36 H 0.60-1.30 MG/DL Estimat Glomerular Filtration Rate 51 BUN/Creatinine Ratio 16 Glucose Level 358 H 70-105 MG/DL Calcium Level 8.9 8.5-10.1 MG/DL Corrected Calcium 9.1 8.5-10.1 MG/DL Total Bilirubin 0.4 0.1-1.0 MG/DL Aspartate Amino Transf (AST/SGOT) 13 5-34 U/L Alanine Aminotransferase (ALT/SGPT) 13 0-55 U/L Alkaline Phosphatase 80 40-136 U/L Troponin I < 0.30 <0.30 NG/ML Total Protein 6.4 6.4-8.2 GM/DL Albumin 3.8 3.2-4.5 GM/DL Glucometer 355 H 70-110 MG/DL My Orders Orders - JAIMIE GARCIA DO Cbc With Automated Diff (03/05/20 15:06) Protime With Inr (03/05/20 15:06) Partial Thromboplastin Time (03/05/20 15:06) Comprehensive Metabolic Panel (03/05/20 15:06) Fibrin Degradation Products (03/05/20 15:06) Troponin I Fs (03/05/20 15:06) Ua Culture If Indicated (03/05/20 15:06) Chest 1 View Ap/Pa Only (03/05/20 15:06) Ekg Tracing (03/05/20 15:06) Accucheck Stat ONCE (03/05/20 15:06) Ed Iv/Invasive Line Start (03/05/20 15:06) Ed Iv/Invasive Line Start (03/05/20 15:06) Vital Signs Stroke Patient Q15M (03/05/20 15:06) Ct Head Wo-R/O Stroke (03/05/20 15:06) O2 (03/05/20 15:06) Intake & Output 06,14,22 (03/05/20 15:06) Monitor-Rhythm Ecg Trace Only (03/05/20 15:06) Dysphagia Screening Tool (03/05/20 15:06) Vital Signs/I&O 03/05/20 03/05/20 14:59 16:32 Temp 36.1 Pulse 127 97 Resp 17 17 B/P (MAP) 153/81 (105) 130/65 Pulse Ox 96 Blood Pressure Mean: 105 Progress Progress Note : Progress Note @1622 - Patient updated on lab and imaging results. His CT head is unremarkable. I offered to admit the patient at [facility] or a hospital of his choice but the patient would like to leave against ophthalmic medical assistant. His symptoms have completely resolved. The patient and his daughter both express understanding of the risks and benefits of leaving AGAINST MEDICAL ADVICE. The understand that resolution of symptoms does not mean there is no danger/ongoing medical problem. The patient has decision-making capacity at this time. His dysarthria and left-sided weakness have completely resolved Comment EKG@1458 - atrial fibrillation with rapid ventricular response, rate of 113, left axis deviation is present, no acute ischemic findings noted, no STEMI, reviewed and interpreted by myself Diagnostic Imaging Diagonstic Imaging: CT Comments [facility], [place] NAME: GRETCHEN SCHNEIDER [facility] REC#: [id number] PT STATUS: REG ER : 1940 PHYSICIAN: JAIMIE GARCIA DO ADMIT DATE: 03/05/20/ER FS Draft Date of Exam:03/05/20 CT HEAD WO-R/O STROKE PROCEDURE: CT head wo r/o stroke. TECHNIQUE: Multiple contiguous axial images were obtained through the brain without the use of intravenous contrast. Auto Exposure Controls were utilized during the CT exam to meet ALARA standards for radiation dose reduction. INDICATION: Dysarthria, left-sided weakness and facial droop. COMPARISON: None available. FINDINGS: No hyperdense hemorrhage or space-occupying mass. Global atrophy is present with extensive periventricular white matter hypoattenuation most compatible with chronic microvascular ischemic disease. No features of territorial infarct. No hydrocephalus or midline shift. No acute calvarial abnormality. Paranasal sinuses and mastoid air cells are clear. Bilateral cataract surgeries have been performed. IMPRESSION: 1. No acute intracranial hemorrhage or features of large territorial infarct by CT. 2. Global atrophy with extensive chronic microvascular ischemic disease. Dictated on workstation # [id number] Dict: 03/05/20 1550 Trans: 03/05/20 1556 [id number] Interpreted by: PHOEBE GOMEZ MD Electronically signed by: Departure Impression Primary Impression: TIA (transient ischemic attack) Additional Impressions: Left-sided weakness Facial droop Dysarthria Disposition: 07 AGAINST MEDICAL ADVICE Condition: Stable Departure-Patient Inst. Referrals: MICHEL MCADAMS MD (PCP/Family) Primary Care Physician JAIMIE GARCIA DO Mar 05, 2020 15:13
[2020-03-05 15:16] LABS: BASOPHILS % (AUTO) 0 % (0-10); EOSINOPHILS % (AUTO) 1 % (0-10); HEMATOCRIT 42 % (40-54); HEMOGLOBIN 13.6 G/DL (13.3-17.7); LYMPHOCYTES % (AUTO) 18 % (12-44); MEAN CORPUSCULAR HEMOGLOBIN 30 PG (25-34); MEAN CORPUSCULAR HGB CONC 32 G/DL (32-36); MEAN CORPUSCULAR VOLUME 94 FL (80-99); MEAN PLATELET VOLUME 9.8 FL (7.4-10.4); MONOCYTES % (AUTO) 7 % (0-12); PLATELET COUNT 271 10^3/uL (130-400); RED CELL DISTRIBUTION WIDTH 13.9 % (10.0-14.5); WHITE BLOOD COUNT 12.3 10^3/uL (4.3-11.0)
[2020-03-05 15:17] LABS: BASOPHILS # (AUTO) 0.1 10^3/uL (0.0-0.1); EOSINOPHILS # (AUTO) 0.2 10^3/uL (0.0-0.3); LYMPHOCYTES # (AUTO) 2.2 X 10^3 (1.0-4.0); MONOCYTES # (AUTO) 0.9 X 10^3 (0.0-1.0); NEUTROPHILS # (AUTO) 9.1 X 10^3 (1.8-7.8); NEUTROPHILS % (AUTO) 74 % (42-75)
[2020-03-05 15:35] LABS: CHLORIDE 98 MMOL/L (98-107); SODIUM 137 MMOL/L (135-145)
[2020-03-05 15:36] LABS: ALANINE AMINOTRANSFERASE 13 U/L (0-55); ALBUMIN 3.8 GM/DL (3.2-4.5); ALKALINE PHOSPHATASE 80 U/L (40-136); BILIRUBIN,TOTAL 0.4 MG/DL (0.1-1.0); BUN/CREATININE RATIO 16; CALCIUM 8.9 MG/DL (8.5-10.1); CARBON DIOXIDE 22 MMOL/L (21-32); CREATININE SERUM 1.36 MG/DL (0.60-1.30); GFR ESTIMATED 51; GLUCOSE 358 MG/DL (70-105); TOTAL PROTEIN 6.4 GM/DL (6.4-8.2)
--- NOTE | 2020-03-05 15:57 | Diagnostic Imaging Report ---
PROCEDURE: CT head wo r/o stroke. TECHNIQUE: Multiple contiguous axial images were obtained through the brain without the use of intravenous contrast. Auto Exposure Controls were utilized during the CT exam to meet ALARA standards for radiation dose reduction. INDICATION: Dysarthria, left-sided weakness and facial droop. COMPARISON: None available. FINDINGS: No hyperdense hemorrhage or space-occupying mass. Global atrophy is present with extensive periventricular white matter hypoattenuation most compatible with chronic microvascular ischemic disease. No features of territorial infarct. No hydrocephalus or midline shift. No acute calvarial abnormality. Paranasal sinuses and mastoid air cells are clear. Bilateral cataract surgeries have been performed. IMPRESSION: 1. No acute intracranial hemorrhage or features of large territorial infarct by CT. 2. Global atrophy with extensive chronic microvascular ischemic disease. Dictated by: Dictated on workstation # [id number]
--- NOTE | 2020-03-05 16:02 | Diagnostic Imaging Report ---
INDICATION: Left-sided weakness and facial droop. TIME OF EXAM: 03:27 p.m. COMPARISON: Correlation is made with prior chest from 10/01/2018. FINDINGS: The heart is enlarged but stable. Right hemidiaphragm is chronically elevated. No definite infiltrate or failure is seen. There is no effusion or pneumothorax. IMPRESSION: No acute cardiopulmonary process is detected. Dictated by: Dictated on workstation # [id number]
[2020-03-05 16:12] LABS: FIBRIN DEGRADATION PRODUCTS 0.45 UG/ML (0.00-0.49); INR 0.9 (0.8-1.4); PROTHROMBIN TIME PATIENT 12.8 SEC (12.2-14.7)
[2020-03-05 16:32] VITALS: BP 130/65
--- OUTSIDE RECORDS SUMMARY | 2020-03-05 19:20 | XMS REPORT ---
Author Author Wilbert MCADAMS [facility] Address [address] [place] [address] Care Team Providers Care Specialty Person Name Role Phone MICHEL MCADAMS Unavailable PROBLEMS Type Condition ICD9-CM Code [id number] Code Onset Dates Condition S tatus SNOMED Code Problem Moderate persistent asthma, unspecified whether complicate d J45.40 Active 138169587 Problem Acquired hypothyroidism E03.9 Active 479719026 Problem Chronic kidney disease, stage 3 (moderate) N18.3 Active 826671061 Problem Type 2 diabetes mellitus wit hout complication, without long-term current use of insulin E11.9 Active 536464859 Problem Gastroesophageal reflux disease without esophagitis K21.9 Active 481242088 Problem Benign prostatic hyperplasia without lower urina ry tract symptoms N40.0 Active 257715272 Problem Memory loss R41.3 Active 12154712 ALLERGIES No Information ENCOUNTERS Encounter Location Date Diagnosis [address] [id number] [address] Nov, [address] [id number], [place] [address] Aug, Acquired hypothyroidism E03. [address] [id number] [address] Jul, Benign prostatic hyperplasia without lower urinary tract symptoms N40.0 ; Acquired hypothyroidism E03.9 ; Type 2 diabetes mellitus without complication, without long-term current use of insulin E11.9 ; Gastroesophageal reflux disease without esophagitis K21.9 ; Chronic kidney disease, stage 3 (moderate) N18.3 ; Moderate persistent asthma, unspecified whether complicated J45.40 and Memory loss R41.[address] [id number] [address] Jul, [address] [id number] [place] [address] Jan, [facility] [place] [address] [id number] [place] [address] Jan, [facility] [place] [address] [id number] [place] [address] Nov, [facility] [place] [address] [id number] [place] [address] Oct, [facility] [address] [facility] [id number] [place] [address] Sep, [facility] [address] [facility] [id number] [address] [place] [address] Sep, [facility] [address] [id number] [place] [address] Sep, Left leg swelling M79.89 [facility] [address] [facility] [id number] [address] [place] [address] Sep, [facility] [address] [id number] [place] [address] Sep, Pitting edema R60.9 ; Cough R05 ; Hx of atrial fibrillation without current medication Z86.79 and Left leg swelling M79.89 [facility] [place] [address] [id number] [place] [address] Sep, [facility] [place] [address] [id number] [place] [address] Sep, [facility] [place] [address] [id number] [place] [address] Sep, [facility] [place] [address] [id number] [place] [address] Sep, [facility] [place] [address] [id number] [place] [address] Sep, IMMUNIZATIONS No Known Immunizations SOCIAL HISTORY Never Assessed REASON FOR VISIT med refill PLAN OF CARE VITAL SIGNS MEDICATIONS Medication Instructions Dosage Frequency Start Date End Date Duration S cari PredniSONE 5 MG Orally Once a day 1 tablet 24h Nov, 30 day(s) Active RESULTS No Results PROCEDURES No Known procedures INSTRUCTIONS MEDICATIONS ADMINISTERED No Known Medications MEDICAL (GENERAL) HISTORY Type Description Date Medical History hypertension Medical History back pain Surgical History gastrectomy Surgical History back surgery x2 Surgical History colonoscopy 03/2019 Hospitalization History pneumonia Hospitalization History surgery
--- OUTSIDE RECORDS SUMMARY | 2020-03-05 19:20 | XMS REPORT ---
Author Author Wilbert MCADAMS [facility] [facility] Address [address] [place] [address] Care Team Providers Care Store Specialist Name Role Phone MICHEL MCADAMS Unavailable PROBLEMS Unknown Problems ALLERGIES No Information ENCOUNTERS Encounter Location Date Diagnosis [address] [address] Jan, [address] [address] Jan, [address] [address] Nov, [address] [address] Oct, [facility] [address] [facility] [id number] [address] [place] [address] Sep, [place] [id number] [facility] [id number] [address] [place] [address] Sep, [facility] [place] [facility] [address] [place] [address] Sep, Left leg swelling M79.89 [facility] [address] [facility] [id number] [address] [place] [address] Sep, [facility] [address] [place] [address] Sep, Pitting edema R60.9 ; Cough R05 ; Hx of atrial fibrillation without current medication Z86.79 and Left leg swelling M79.[address] [address] Sep, [address] [address] Sep, [address] [address] Sep, [address] [address] Sep, [address] [address] Sep, IMMUNIZATIONS No Known Immunizations SOCIAL HISTORY Never Assessed REASON FOR VISIT PLAN OF CARE VITAL SIGNS MEDICATIONS Medication Instructions Dosage Frequency Start Date End Date Duration S tatus Accu-Chek Maddi Plus - In Vitro once daily as needed USE ONE STRIP TO CHECK GLUCOSE ONCE DAILY NEEDED dx: E11.9 50 days Active RESULTS No Results PROCEDURES No Known procedures INSTRUCTIONS MEDICATIONS ADMINISTERED No Known Medications MEDICAL (GENERAL) HISTORY Type Description Date Medical History hypertension Medical History back pain Surgical History gastrectomy Surgical History back surgery x2 Hospitalization History pneumonia Hospitalization History surgery
--- OUTSIDE RECORDS SUMMARY | 2020-03-05 19:20 | XMS REPORT | Continuity of Care Document ---
Author Organization Unknown Address Unknown Phone Unavailable Allergies Active Description Code Type Severity Reaction Onset Reported/Identified Relationship to Patient Clinical Status Yes No Known Drug Allergies [id number] Drug Allergy Unknown N/A 03/28/2019 Medications There is no data. Problems Date Dx Coded Attending Type Code Diagnosis Diagnosed By 09/24/2016 DIANE HESTER MD Ot M54.1 6 RADICULOPATHY, LUMBAR REGION 10/03/2016 DIANE HESTER MD Ot M54.1 6 RADICULOPATHY, LUMBAR REGION 09/29/2018 DIANE HESTER MD Ot M54.1 6 RADICULOPATHY, LUMBAR REGION 09/29/2018 DIANE HESTER MD, Ot M54.1 6 RADICULOPATHY, LUMBAR REGION 09/30/2018 Ot M54.16 RAD ICULOPATHY, LUMBAR REGION 10/05/2018 HELDER ROMAN MD Ot E03. 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 1 RHEUMATIC DISORDERS OF BOTH MITRAL AND T 10/05/2018 HELDER ROMAN MD Ot I42. 9 CARDIOMYOPATHY, UNSPECIFIED 10/05/2018 HELDER ROMAN MD Ot I48. 2 CHRONIC ATRIAL FIBRILLATION 10/05/2018 HELDER ROMAN MD Ot I50. 23 ACUTE ON CHRONIC SYSTOLIC (CONGESTIVE) H 10/05/2018 HELDER ROMAN MD Ot I95. 9 HYPOTENSION, UNSPECIFIED 10/05/2018 HELDER ROMAN MD, Ot M54. 9 DORSALGIA, UNSPECIFIED 10/05/2018 HELDER ROMAN MD Ot N18. 2 CHRONIC KIDNEY DISEASE, STAGE 2 (MILD) 10/05/2018 HELDER ROMAN MD Ot R09. 02 HYPOXEMIA 10/05/2018 HELDER ROMAN MD, Ot R79. 89 OTHER SPECIFIED ABNORMAL FINDINGS OF BLO 10/05/2018 HELDER ROMAN MD, Ot Z79. 82 BUSINESS DEVELOPMENT RECRUITER (CURRENT) USE OF ASPIRIN 10/05/2018 HELDER ROMAN MD, Ot Z79. 84 BUSINESS DEVELOPMENT RECRUITER (CURRENT) USE OF ORAL HYPOGLYC 10/05/2018 HELDER ROMAN MD, Ot Z86. 73 PRSNL HX OF TIA (TIA), AND CEREB INFRC W 10/05/2018 HELDER ROMAN MD, Ot Z91. 14 PATIENT'S OTHER NONCOMPLIANCE WITH MEDIC 10/05/2018 HELDER ROMAN MD, Ot E03. 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 1 RHEUMATIC DISORDERS OF BOTH MITRAL AND T 10/05/2018 HELDER ROMAN MD, Ot I21. A1 MYOCARDIAL INFARCTION TYPE 2 10/05/2018 HELDER ROMAN MD, Ot I25. 10 ATHSCL HEART DISEASE OF [place] CORONARY 10/05/2018 HELDER ROMAN MD Ot I42. 0 DILATED CARDIOMYOPATHY 10/05/2018 HELDER ROMAN MD, Ot I48. 0 PAROXYSMAL ATRIAL FIBRILLATION 10/05/2018 HELDER ROMAN MD, Ot I50. 23 ACUTE ON CHRONIC SYSTOLIC (CONGESTIVE) H 10/05/2018 HELDER ROMAN MD Ot I95. 1 ORTHOSTATIC HYPOTENSION 10/05/2018 HELDER ROMAN MD, Ot J81. 1 CHRONIC PULMONARY EDEMA 10/05/2018 HELDER ROMAN MD, Ot J98. 11 ATELECTASIS 10/05/2018 HELDER ROMAN MD, Ot M54. 9 DORSALGIA, UNSPECIFIED 10/05/2018 HELDER ROMAN MD, Ot N17. 9 ACUTE KIDNEY FAILURE, UNSPECIFIED 10/05/2018 HELDER ROMAN MD, Ot N18. 3 CHRONIC KIDNEY DISEASE, STAGE 3 (MODERAT 10/05/2018 HELDER ROMAN MD Ot R09. 02 HYPOXEMIA 10/05/2018 HELDER ROMAN MD, Ot R41. 0 DISORIENTATION, UNSPECIFIED 10/05/2018 HELDER ROMAN MD Ot R79. 89 OTHER SPECIFIED ABNORMAL FINDINGS OF BLO 10/05/2018 HELDER ROMAN MD Ot Z79. 82 FDC (CURRENT) USE OF ASPIRIN 10/05/2018 HELDER ROMAN MD Ot Z79. 84 BUSINESS DEVELOPMENT RECRUITER (CURRENT) USE OF ORAL HYPOGLYC 10/05/2018 HELDER ROMAN MD Ot Z86. 73 PRSNL HX OF TIA (TIA), AND CEREB INFRC W 10/05/2018 HELDER ROMAN MD Ot Z91. 14 PATIENT'S OTHER NONCOMPLIANCE WITH MEDIC 01/27/2019 MILLA POSADAS FACC, ALI FACP CCDS Ot E11.22 TYPE 2 DIABETES MELLITUS W DIABETIC UROGYNECOLOGY PHYSICIAN 01/27/2019 MILLA POSADAS FACC, ALI FACP CCDS Ot I25.10 ATHSCL HEART DISEASE OF [place] CORONARY 01/27/2019 MILLA POSADAS FACC, ALI FACP CCDS Ot I42.0 DILATED CARDIOMYOPATHY 01/27/2019 MILLA POSADAS FACC, ALI FACP CCDS Ot I50.22 CHRONIC SYSTOLIC (CONGESTIVE) HEART FAIL 01/27/2019 MILLA POSADAS [facility], ALI FACP CCDS Ot N18.3 CHRONIC KIDNEY DISEASE, STAGE 3 (MODERAT 01/27/2019 MILLA POSADAS FACC, ALI FACP CCDS Ot Z86.73 PRSNL HX OF TIA (TIA), AND CEREB INFRC W 02/11/2019 MILLA POSADAS FAC, ALI FACP CCDS Ot E11.22 TYPE 2 DIABETES MELLITUS W DIABETIC UROGYNECOLOGY PHYSICIAN 02/11/2019 MILLA BURKS, ALI FACP CCDS Ot I25.10 ATHSCL HEART DISEASE OF [place] CORONARY 02/11/2019 MILLA POSADAS FAC, ALI FACP CCDS Ot I42.0 DILATED CARDIOMYOPATHY 02/11/2019 MILLA POSADAS FACC, ALI FACP CCDS Ot I50.22 CHRONIC SYSTOLIC (CONGESTIVE) HEART FAIL 02/11/2019 MILLA BURKSC, ALI FACP CCDS Ot N18.3 CHRONIC KIDNEY DISEASE, STAGE 3 (MODERAT 02/11/2019 MILLA POSADAS FACYulia, ALI FACP CCDS Ot Z86.73 PRSNL HX OF TIA (TIA), AND CEREB INFRC W 03/29/2019 ALEX OHARA MD Ot K92.1 [place] 03/29/2019 ALEX OHARA MD, Ot Z01.81 8 ENCOUNTER FOR OTHER PREPROCEDURAL EXAMIN 03/30/2019 ALEX OHARA MD, Ot D12.3 BENIGN NEOPLASM OF TRANSVERSE COLON 03/30/2019 ALEX OHARA MD, Ot D12.8 BENIGN NEOPLASM OF RECTUM 03/30/2019 ALEX OHARA MD, Ot E03.9 HYPOTHYROIDISM, UNSPECIFIED 03/30/2019 ALEX OHARA MD, Ot E11.22 TYPE 2 DIABETES MELLITUS W DIABETIC UROGYNECOLOGY PHYSICIAN 03/30/2019 ALEX OHARA MD, Ot I48.91 UNSPECIFIED ATRIAL FIBRILLATION 03/30/2019 ALEX OHARA MD, Ot I50.9 HEART FAILURE, UNSPECIFIED 03/30/2019 ALEX OHARA MD, Ot J45.90 9 UNSPECIFIED ASTHMA, UNCOMPLICATED 03/30/2019 ALEX OHARA MD, Ot K57.30 DVRTCLOS OF LG INT W/O PERFORATION OR AB 03/30/2019 ALEX OHARA MD, Ot K62.5 HEMORRHAGE OF ANUS AND RECTUM 03/30/2019 ALEX OHARA MD, Ot K62.89 OTHER SPECIFIED DISEASES OF ANUS AND REC 03/30/2019 ALEX OHARA MD, Ot K64.1 SECOND DEGREE HEMORRHOIDS 03/30/2019 ALEX OHARA MD, Ot K64.8 OTHER HEMORRHOIDS 03/30/2019 ALEX OHARA MD, Ot N18.3 CHRONIC KIDNEY DISEASE, STAGE 3 (MODERAT 03/30/2019 ALEX OHARA MD, Ot N40.0 BENIGN PROSTATIC HYPERPLASIA WITHOUT LOW 03/30/2019 ALEX OHARA MD, Ot Z79.01 BUSINESS DEVELOPMENT RECRUITER (CURRENT) USE OF ANTICOAGULANT 03/30/2019 ALEX OHARA MD, Ot Z79.82 BUSINESS DEVELOPMENT RECRUITER (CURRENT) USE OF ASPIRIN 03/30/2019 ALEX OHARA MD, Ot Z79.89 9 OTHER BUSINESS DEVELOPMENT RECRUITER (CURRENT) DRUG THERAPY 03/30/2019 ALEX OHARA MD, Ot Z86.73 PRSNL HX OF TIA (TIA), AND CEREB INFRC W 03/30/2019 ALEX OHARA MD, Ot Z90.49 ACQUIRED ABSENCE OF OTHER SPECIFIED PART 04/03/2019 ALEX OHARA MD, Ot K92.1 [place]LE[place] 04/03/2019 ALEX OHARA MD, Ot Z01.81 8 ENCOUNTER FOR OTHER PREPROCEDURAL EXAMIN 04/06/2019 ALEX OHARA MD, Ot D12.3 BENIGN NEOPLASM OF TRANSVERSE COLON 04/06/2019 ALEX OHARA MD, Ot D12.8 BENIGN NEOPLASM OF RECTUM 04/06/2019 ALEX OHARA MD, Ot E03.9 HYPOTHYROIDISM, UNSPECIFIED 04/06/2019 ALEX OHARA MD, Ot E11.22 TYPE 2 DIABETES MELLITUS W DIABETIC UROGYNECOLOGY PHYSICIAN 04/06/2019 ALEX OHARA MD, Ot I48.91 UNSPECIFIED ATRIAL FIBRILLATION 04/06/2019 ALEX OHARA MD, Ot I50.9 HEART FAILURE, UNSPECIFIED 04/06/2019 ALEX OHARA MD, Ot J45.90 9 UNSPECIFIED ASTHMA, UNCOMPLICATED 04/06/2019 ALEX OHARA MD, Ot K57.30 DVRTCLOS OF LG INT W/O PERFORATION OR AB 04/06/2019 ALEX OHARA MD, Ot K62.5 HEMORRHAGE OF ANUS AND RECTUM 04/06/2019 ALEX OHARA MD, Ot K62.89 OTHER SPECIFIED DISEASES OF ANUS AND REC 04/06/2019 ALEX OHARA MD, Ot K64.1 SECOND DEGREE HEMORRHOIDS 04/06/2019 ALEX OHARA MD, Ot K64.8 OTHER HEMORRHOIDS 04/06/2019 ALEX OHARA MD, Ot N18.3 CHRONIC KIDNEY DISEASE, STAGE 3 (MODERAT 04/06/2019 ALEX OHARA MD, Ot N40.0 BENIGN PROSTATIC HYPERPLASIA WITHOUT LOW 04/06/2019 ALEX OHARA MD, Ot Z79.01 BUSINESS DEVELOPMENT RECRUITER (CURRENT) USE OF ANTICOAGULANT 04/06/2019 ALEX OHARA MD, Ot Z79.82 BUSINESS DEVELOPMENT RECRUITER (CURRENT) USE OF ASPIRIN 04/06/2019 ALEX OHARA MD, Ot Z79.89 9 OTHER BUSINESS DEVELOPMENT RECRUITER (CURRENT) DRUG THERAPY 04/06/2019 ALEX OHARA MD, Ot Z86.73 PRSNL HX OF TIA (TIA), AND CEREB INFRC W 04/06/2019 ALEX OHARA MD, Ot Z90.49 ACQUIRED ABSENCE OF OTHER SPECIFIED PART Procedures Code Description Performed By Per formed On [id number] ME ASURE OF CARDIAC SAMPL PRESSURE, L H 10/03/2018 [id number] FL UOROSCOPY OF MULT COR ART USING L OSM 10/03/2018 [id number] FL UOROSCOPY OF LEFT HEART USING LOW OSMO 10/03/2018 Results Test Result Range BNP - 09/27/18 15:59 B TYPE NATRIURETIC PEPTIDE (BNP) TNP pg/mL NRG EXTRA LAVENDER-TOP TUBE - 09/27/18 15:59 COMMENT NRG EXTRA LAVENDER-TOP TUBE NRG Complete blood count (CBC) with automate d white blood cell (WBC) differential - 09/29/18 10:15 Blood leukocytes automated count (number/volume) 8.5 10*3/uL 4.3-11.0 Blood erythrocytes automated count (number/volume) 4.17 10*6/uL 4.35-5.85 Venous blood hemoglobin measurement (mass/volume) 12.0 g/dL 13.3-17.7 Blood hematocrit (volume fraction) 38 % 40-54 Automated erythrocyte mean corpuscular volume 91 [ foz_us] 80-99 Automated erythrocyte mean corpuscular h emoglobin (mass per erythrocyte) 29 pg 25-34 Automated erythrocyte mean corpuscular h emoglobin concentration measurement (mass/volume) 32 g/dL 32-36 Automated erythrocyte distribution width ratio 14. 5 % 10.0- 14.5 Automated blood platelet count (count/volume) 197 10*3/uL 130-400 Automated blood platelet mean volume measurement 10.5 [foz_us] 7.4-10.4 Automated blood neutrophils/100 leukocytes 76 % 42-75 Automated blood lymphocytes/100 leukocytes 11 % 12-44 Blood monocytes/100 leukocytes 9 % 0-12 Automated blood eosinophils/100 leukocytes 3 % 0-10 Automated blood basophils/100 leukocytes 1 % 0-10 Blood neutrophils automated count (number/volume) 6.5 10*3 1.8-7.8 Blood lymphocytes automated count (number/volume) 1.0 10*3 1.0-4.0 Blood monocytes automated count (number/volume) 0. 8 10*3 0.0-1.0 Automated eosinophil count 0.2 10*3/uL 0 .0-0.3 Automated blood basophil count (count/volume) 0.1 10*3/uL 0.0-0.1 PT panel in platelet poor plasma by coag ulation assay - 09/29/18 10:15 Prothrombin time (PT) in platelet poor plasma by coagu lation assay 14.9 s 12.2-14.7 INR in platelet poor plasma or blood by coagulation as say 1.2 0.8-1.4 Fibrin D-dimer FEU measurement in platel et poor plasma (mass/volume) - 09/29/18 10:15 Fibrin D-dimer FEU measurement in platelet poor plasma (mass/volume) 1.73 ug/mL 0.00-0.49 Serum or plasma lithium measurement (mol es/volume) - 09/29/18 10:15 BNP level 73512.0 pg/mL <100.0 Comprehensive metabolic panel - 09/29/18 10:15 Serum or plasma sodium measurement (moles/volume) 132 mmol/L 135-145 Serum or plasma potassium measurement (moles/volume) 4.3 mmol/L 3.6-5.0 Serum or plasma chloride measurement (moles/volume) 96 mmol/L 98-107 Carbon dioxide 26 mmol/L 21-32 Serum or plasma anion gap determination (moles/volume) 10 mmol/L 5-14 Serum or plasma urea nitrogen measurement (mass/volume ) 20 mg/dL 7-18 Serum or plasma creatinine measurement (mass/volume) 1.35 mg/dL 0.60-1.30 Serum or plasma urea nitrogen/creatinine mass ratio 15 NRG Serum or plasma creatinine measurement w ith calculation of estimated glomerular filtration rate 51 NRG Serum or plasma glucose measurement (mass/volume) 93 mg/dL 70-105 Serum or plasma calcium measurement (mass/volume) 8.3 mg/dL 8.5-10.1 Serum or plasma total bilirubin measurement (mass/volu me) 0.8 mg/dL 0.1-1.0 Serum or plasma alkaline phosphatase trent surement (enzymatic activity/volume) 84 U/L 40-136 Serum or plasma aspartate aminotransfera se measurement (enzymatic activity/volume) 25 U/L 5-34 Serum or plasma alanine aminotransferase measurement (enzymatic activity/volume) 20 U/L 0-55 Serum or plasma protein measurement (mass/volume) 6.1 g/dL 6.4-8.2 Serum or plasma albumin measurement (mass/volume) 3.8 g/dL 3.2-4.5 CALCIUM CORRECTED 8.5 mg/dL 8.5-10.1 TROPONIN T - 09/29/18 10:15 TROPONIN T 130 % <=15 Lipase - 09/29/18 10:15 Lipase 22 U/L 8-78 Capillary blood glucose measurement by g lucometer (mass/volume) - 09/29/18 12:05 Capillary blood glucose measurement by glucometer (mas s/volume) 91 mg/dL 70-110 Complete urinalysis with reflex to cultu re - 09/29/18 13:00 Urine color determination YELLOW NRG Urine clarity determination CLEAR NR G Urine pH measurement by test strip 5.5 5-9 Specific gravity of urine by test strip < 1.016-1.022 Urine protein assay by test strip, semi-quantitative TRACE NEGATIVE Urine glucose detection by automated test strip NE GATIVE NEGATIVE Erythrocytes detection in urine sediment by light micr oscopy NEGATIVE NEGATIVE Urine ketones detection by automated test strip NE GATIVE NEGATIVE Urine nitrite detection by test strip NEGATIVE NEGATIVE Urine total bilirubin detection by test strip NEGA TIVE NEGATIVE Urine urobilinogen measurement by automated test strip (mass/volume) 0.2 mg/dL NORMAL Urine leukocyte esterase detection by dipstick NEG ATIVE NEGATIVE Automated urine sediment erythrocyte cou nt by microscopy (number/high power field) NONE NRG Automated urine sediment leukocyte count by microscopy (number/high power field) NONE NRG Bacteria detection in urine sediment by light microsco py NONE NRG Squamous epithelial cells detection in u rine sediment by light microscopy 0-2 NRG Crystals detection in urine sediment by light microsco py NONE NRG Casts detection in urine sediment by light microscopy NONE NRG Mucus detection in urine sediment by light microscopy NEGATIVE NRG Complete urinalysis with reflex to culture NO NRG Methicillin resistant Staphylococcus aur eus (MRSA) screening culture - 09/29/18 15:27 Methicillin resistant Staphylococcus aureus (MRSA) scr eening culture NEG NRG Serum or plasma troponin i.cardiac measu rement (mass/volume) - 09/29/18 15:50 Serum or plasma troponin i.cardiac measurement (mass/v olume) 0.084 ng/mL <0.028 Serum or plasma troponin i.cardiac measu rement (mass/volume) - 09/29/18 18:15 Serum or plasma troponin i.cardiac measurement (mass/v olume) 0.079 ng/mL <0.028 Capillary blood glucose measurement by g lucometer (mass/volume) - 09/29/18 21:04 Capillary blood glucose measurement by glucometer (mas s/volume) 129 mg/dL 70-110 Complete blood count (CBC) with automate d white blood cell (WBC) differential - 09/30/18 03:25 Blood leukocytes automated count (number/volume) 9.2 10*3/uL 4.3-11.0 Blood erythrocytes automated count (number/volume) 3.77 10*6/uL 4.35-5.85 Venous blood hemoglobin measurement (mass/volume) 10.6 g/dL 13.3-17.7 Blood hematocrit (volume fraction) 33 % 40-54 Automated erythrocyte mean corpuscular volume 88 [ foz_us] 80-99 Automated erythrocyte mean corpuscular h emoglobin (mass per erythrocyte) 28 pg 25-34 Automated erythrocyte mean corpuscular h emoglobin concentration measurement (mass/volume) 32 g/dL 32-36 Automated erythrocyte distribution width ratio 14. 9 % 10.0- 14.5 Automated blood platelet count (count/volume) 176 10*3/uL 130-400 Automated blood platelet mean volume measurement 10.3 [foz_us] 7.4-10.4 Automated blood neutrophils/100 leukocytes 79 % 42-75 Automated blood lymphocytes/100 leukocytes 9 % 12-44 Blood monocytes/100 leukocytes 10 % 0-12 Automated blood eosinophils/100 leukocytes 2 % 0-10 Automated blood basophils/100 leukocytes 1 % 0-10 Blood neutrophils automated count (number/volume) 7.2 10*3 1.8-7.8 Blood lymphocytes automated count (number/volume) 0.9 10*3 1.0-4.0 Blood monocytes automated count (number/volume) 0. 9 10*3 0.0-1.0 Automated eosinophil count 0.2 10*3/uL 0 .0-0.3 Automated blood basophil count (count/volume) 0.1 10*3/uL 0.0-0.1 Comprehensive metabolic panel - 09/30/18 03:25 Serum or plasma sodium measurement (moles/volume) 134 mmol/L 135-145 Serum or plasma potassium measurement (moles/volume) 4.4 mmol/L 3.6-5.0 Serum or plasma chloride measurement (moles/volume) 103 mmol/L 98-107 Carbon dioxide 20 mmol/L 21-32 Serum or plasma anion gap determination (moles/volume) 11 mmol/L 5-14 Serum or plasma urea nitrogen measurement (mass/volume ) 21 mg/dL 7-18 Serum or plasma creatinine measurement (mass/volume) 1.52 mg/dL 0.60-1.30 Serum or plasma urea nitrogen/creatinine mass ratio 14 NRG Serum or plasma creatinine measurement w ith calculation of estimated glomerular filtration rate 45 NRG Serum or plasma glucose measurement (mass/volume) 90 mg/dL 70-105 Serum or plasma calcium measurement (mass/volume) 8.3 mg/dL 8.5-10.1 Serum or plasma total bilirubin measurement (mass/volu me) 1.0 mg/dL 0.1-1.0 Serum or plasma alkaline phosphatase trent surement (enzymatic activity/volume) 72 U/L 40-136 Serum or plasma aspartate aminotransfera se measurement (enzymatic activity/volume) 28 U/L 5-34 Serum or plasma alanine aminotransferase measurement (enzymatic activity/volume) 21 U/L 0-55 Serum or plasma protein measurement (mass/volume) 5.1 g/dL 6.4-8.2 Serum or plasma albumin measurement (mass/volume) 3.2 g/dL 3.2-4.5 CALCIUM CORRECTED 8.9 mg/dL 8.5-10.1 Serum or plasma phosphate measurement (m ass/volume) - 09/30/18 03:25 Serum or plasma phosphate measurement (mass/volume) 3.5 mg/dL 2.3-4.7 Magnesium - 09/30/18 03:25 Magnesium 1.6 mg/dL 1.8-2.4 Lipid 1996 panel - 09/30/18 03:25 Serum or plasma triglyceride measurement (mass/volume) 64 mg/dL <150 Serum or plasma cholesterol measurement (mass/volume) 136 mg/dL < 200 Serum or plasma cholesterol in HDL measurement (mass/v olume) 49 mg/dL 40-60 Cholesterol in LDL [mass/volume] in serum or plasma by direct assay 76 mg/dL 1-129 Serum or plasma cholesterol in VLDL measurement (mass/ volume) 13 mg/dL 5-40 Serum or plasma lithium measurement (mol es/volume) - 09/30/18 03:25 BNP level 991.7 pg/mL <100.0 THYROID STIMULATING HORMONE - 09/30/18 0 3:25 THYROID STIMULATING HORMONE 4.11 u[iU]/mL 0.35-4.94 PROCALCITONIN (PCT) - 09/30/18 03:25 PROCALCITONIN (PCT) 0.06 ng/mL <0.10 Capillary blood glucose measurement by g lucometer (mass/volume) - 09/30/18 10:57 Capillary blood glucose measurement by glucometer (mas s/volume) 210 mg/dL 70-110 Capillary blood glucose measurement by g lucometer (mass/volume) - 09/30/18 17:16 Capillary blood glucose measurement by glucometer (mas s/volume) 162 mg/dL 70-110 Capillary blood glucose measurement by g lucometer (mass/volume) - 09/30/18 20:22 Capillary blood glucose measurement by glucometer (mas s/volume) 197 mg/dL 70-110 Complete blood count (CBC) with automate d white blood cell (WBC) differential - 10/01/18 03:20 Blood leukocytes automated count (number/volume) 7.6 10*3/uL 4.3-11.0 Blood erythrocytes automated count (number/volume) 3.60 10*6/uL 4.35-5.85 Venous blood hemoglobin measurement (mass/volume) 10.1 g/dL 13.3-17.7 Blood hematocrit (volume fraction) 32 % 40-54 Automated erythrocyte mean corpuscular volume 89 [ foz_us] 80-99 Automated erythrocyte mean corpuscular h emoglobin (mass per erythrocyte) 28 pg 25-34 Automated erythrocyte mean corpuscular h emoglobin concentration measurement (mass/volume) 32 g/dL 32-36 Automated erythrocyte distribution width ratio 14. 6 % 10.0- 14.5 Automated blood platelet count (count/volume) 177 10*3/uL 130-400 Automated blood platelet mean volume measurement 10.3 [foz_us] 7.4-10.4 Automated blood neutrophils/100 leukocytes 77 % 42-75 Automated blood lymphocytes/100 leukocytes 9 % 12-44 Blood monocytes/100 leukocytes 12 % 0-12 Automated blood eosinophils/100 leukocytes 2 % 0-10 Automated blood basophils/100 leukocytes 0 % 0-10 Blood neutrophils automated count (number/volume) 5.9 10*3 1.8-7.8 Blood lymphocytes automated count (number/volume) 0.7 10*3 1.0-4.0 Blood monocytes automated count (number/volume) 0. 9 10*3 0.0-1.0 Automated eosinophil count 0.1 10*3/uL 0 .0-0.3 Automated blood basophil count (count/volume) 0.0 10*3/uL 0.0-0.1 Whole blood basic metabolic panel - 08/21 03:20 Serum or plasma sodium measurement (moles/volume) 134 mmol/L 135-145 Serum or plasma potassium measurement (moles/volume) 4.2 mmol/L 3.6-5.0 Serum or plasma chloride measurement (moles/volume) 104 mmol/L 98-107 Carbon dioxide 21 mmol/L 21-32 Serum or plasma anion gap determination (moles/volume) 9 mmol/L 5-14 Serum or plasma urea nitrogen measurement (mass/volume ) 23 mg/dL 7-18 Serum or plasma creatinine measurement (mass/volume) 1.82 mg/dL 0.60-1.30 Serum or plasma urea nitrogen/creatinine mass ratio 13 NRG Serum or plasma creatinine measurement w ith calculation of estimated glomerular filtration rate 36 NRG Serum or plasma glucose measurement (mass/volume) 87 mg/dL 70-105 Serum or plasma calcium measurement (mass/volume) 8.2 mg/dL 8.5-10.1 Serum or plasma phosphate measurement (m ass/volume) - 10/01/18 03:20 Serum or plasma phosphate measurement (mass/volume) 3.7 mg/dL 2.3-4.7 Magnesium - 10/01/18 03:20 Magnesium 2.1 mg/dL 1.8-2.4 DIGOXIN - 10/01/18 03:20 DIGOXIN < 0.30 0.80-2.00 Influenza virus A and B antigen detectio n - 10/01/18 09:08 FLU RESULT NEGATIVE FOR INFLUENZA A AND B ANTIGENS BY IA NRG Capillary blood glucose measurement by g lucometer (mass/volume) - 10/01/18 12:21 Capillary blood glucose measurement by glucometer (mas s/volume) 144 mg/dL 70-110 Capillary blood glucose measurement by g lucometer (mass/volume) - 10/01/18 16:05 Capillary blood glucose measurement by glucometer (mas s/volume) 175 mg/dL 70-110 Capillary blood glucose measurement by g lucometer (mass/volume) - 10/01/18 20:22 Capillary blood glucose measurement by glucometer (mas s/volume) 188 mg/dL 70-110 DIGOXIN - 10/02/18 03:30 DIGOXIN < 0.30 0.80-2.00 Capillary blood glucose measurement by g lucometer (mass/volume) - 10/02/18 06:26 Capillary blood glucose measurement by glucometer (mas s/volume) 130 mg/dL 70-110 Capillary blood glucose measurement by g lucometer (mass/volume) - 10/02/18 11:00 Capillary blood glucose measurement by glucometer (mas s/volume) 202 mg/dL 70-110 Capillary blood glucose measurement by g lucometer (mass/volume) - 10/02/18 15:46 Capillary blood glucose measurement by glucometer (mas s/volume) 279 mg/dL 70-110 Capillary blood glucose measurement by g lucometer (mass/volume) - 10/02/18 20:28 Capillary blood glucose measurement by glucometer (mas s/volume) 145 mg/dL 70-110 Capillary blood glucose measurement by g lucometer (mass/volume) - 10/03/18 05:38 Capillary blood glucose measurement by glucometer (mas s/volume) 125 mg/dL 70-110 Complete blood count (CBC) with automate d white blood cell (WBC) differential - 10/03/18 05:54 Blood leukocytes automated count (number/volume) 8.6 10*3/uL 4.3-11.0 Blood erythrocytes automated count (number/volume) 3.78 10*6/uL 4.35-5.85 Venous blood hemoglobin measurement (mass/volume) 10.7 g/dL 13.3-17.7 Blood hematocrit (volume fraction) 34 % 40-54 Automated erythrocyte mean corpuscular volume 91 [ foz_us] 80-99 Automated erythrocyte mean corpuscular h emoglobin (mass per erythrocyte) 28 pg 25-34 Automated erythrocyte mean corpuscular h emoglobin concentration measurement (mass/volume) 31 g/dL 32-36 Automated erythrocyte distribution width ratio 15. 0 % 10.0- 14.5 Automated blood platelet count (count/volume) 204 10*3/uL 130-400 Automated blood platelet mean volume measurement 9.7 [foz_us] 7.4-10.4 Automated blood neutrophils/100 leukocytes 73 % 42-75 Automated blood lymphocytes/100 leukocytes 13 % 12-44 Blood monocytes/100 leukocytes 10 % 0-12 Automated blood eosinophils/100 leukocytes 4 % 0-10 Automated blood basophils/100 leukocytes 0 % 0-10 Blood neutrophils automated count (number/volume) 6.3 10*3 1.8-7.8 Blood lymphocytes automated count (number/volume) 1.1 10*3 1.0-4.0 Blood monocytes automated count (number/volume) 0. 9 10*3 0.0-1.0 Automated eosinophil count 0.3 10*3/uL 0 .0-0.3 Automated blood basophil count (count/volume) 0.0 10*3/uL 0.0-0.1 Whole blood basic metabolic panel - 10/19 05:54 Serum or plasma sodium measurement (moles/volume) 139 mmol/L 135-145 Serum or plasma potassium measurement (moles/volume) 4.3 mmol/L 3.6-5.0 Serum or plasma chloride measurement (moles/volume) 105 mmol/L 98-107 Carbon dioxide 25 mmol/L 21-32 Serum or plasma anion gap determination (moles/volume) 9 mmol/L 5-14 Serum or plasma urea nitrogen measurement (mass/volume ) 22 mg/dL 7-18 Serum or plasma creatinine measurement (mass/volume) 1.42 mg/dL 0.60-1.30 Serum or plasma urea nitrogen/creatinine mass ratio 15 NRG Serum or plasma creatinine measurement w ith calculation of estimated glomerular filtration rate 48 NRG Serum or plasma glucose measurement (mass/volume) 107 mg/dL 70-105 Serum or plasma calcium measurement (mass/volume) 8.4 mg/dL 8.5-10.1 Capillary blood glucose measurement by g lucometer (mass/volume) - 10/03/18 15:55 Capillary blood glucose measurement by glucometer (mas s/volume) 149 mg/dL 70-110 Capillary blood glucose measurement by g lucometer (mass/volume) - 10/03/18 20:03 Capillary blood glucose measurement by glucometer (mas s/volume) 216 mg/dL 70-110 Capillary blood glucose measurement by g lucometer (mass/volume) - 10/04/18 04:18 Capillary blood glucose measurement by glucometer (mas s/volume) 97 mg/dL 70-110 Automated blood complete blood count (he mogram) panel - 10/04/18 04:55 Blood leukocytes automated count (number/volume) 9.7 10*3/uL 4.3-11.0 Blood erythrocytes automated count (number/volume) 4.27 10*6/uL 4.35-5.85 Venous blood hemoglobin measurement (mass/volume) 12.2 g/dL 13.3-17.7 Blood hematocrit (volume fraction) 39 % 40-54 Automated erythrocyte mean corpuscular volume 91 [ foz_us] 80-99 Automated erythrocyte mean corpuscular h emoglobin (mass per erythrocyte) 29 pg 25-34 Automated erythrocyte mean corpuscular h emoglobin concentration measurement (mass/volume) 32 g/dL 32-36 Automated erythrocyte distribution width ratio 14. 8 % 10.0- 14.5 Automated blood platelet count (count/volume) 197 10*3/uL 130-400 Automated blood platelet mean volume measurement 9.6 [foz_us] 7.4-10.4 Whole blood basic metabolic panel - 11/19 04:55 Serum or plasma sodium measurement (moles/volume) 139 mmol/L 135-145 Serum or plasma potassium measurement (moles/volume) 4.4 mmol/L 3.6-5.0 Serum or plasma chloride measurement (moles/volume) 104 mmol/L 98-107 Carbon dioxide 26 mmol/L 21-32 Serum or plasma anion gap determination (moles/volume) 9 mmol/L 5-14 Serum or plasma urea nitrogen measurement (mass/volume ) 27 mg/dL 7-18 Serum or plasma creatinine measurement (mass/volume) 1.35 mg/dL 0.60-1.30 Serum or plasma urea nitrogen/creatinine mass ratio 20 NRG Serum or plasma creatinine measurement w ith calculation of estimated glomerular filtration rate 51 NRG Serum or plasma glucose measurement (mass/volume) 99 mg/dL 70-105 Serum or plasma calcium measurement (mass/volume) 8.7 mg/dL 8.5-10.1 Capillary blood glucose measurement by g lucometer (mass/volume) - 10/04/18 11:04 Capillary blood glucose measurement by glucometer (mas s/volume) 181 mg/dL 70-110 Capillary blood glucose measurement by g lucometer (mass/volume) - 10/04/18 16:13 Capillary blood glucose measurement by glucometer (mas s/volume) 224 mg/dL 70-110 Capillary blood glucose measurement by g lucometer (mass/volume) - 10/04/18 20:07 Capillary blood glucose measurement by glucometer (mas s/volume) 237 mg/dL 70-110 Automated blood complete blood count (he mogram) panel - 10/05/18 05:50 Blood leukocytes automated count (number/volume) 8.1 10*3/uL 4.3-11.0 Blood erythrocytes automated count (number/volume) 3.92 10*6/uL 4.35-5.85 Venous blood hemoglobin measurement (mass/volume) 11.2 g/dL 13.3-17.7 Blood hematocrit (volume fraction) 35 % 40-54 Automated erythrocyte mean corpuscular volume 90 [ foz_us] 80-99 Automated erythrocyte mean corpuscular h emoglobin (mass per erythrocyte) 29 pg 25-34 Automated erythrocyte mean corpuscular h emoglobin concentration measurement (mass/volume) 32 g/dL 32-36 Automated erythrocyte distribution width ratio 14. 9 % 10.0- 14.5 Automated blood platelet count (count/volume) 233 10*3/uL 130-400 Automated blood platelet mean volume measurement 9.4 [foz_us] 7.4-10.4 Whole blood basic metabolic panel - 12/19 05:50 Serum or plasma sodium measurement (moles/volume) 141 mmol/L 135-145 Serum or plasma potassium measurement (moles/volume) 4.1 mmol/L 3.6-5.0 Serum or plasma chloride measurement (moles/volume) 105 mmol/L 98-107 Carbon dioxide 26 mmol/L 21-32 Serum or plasma anion gap determination (moles/volume) 10 mmol/L 5-14 Serum or plasma urea nitrogen measurement (mass/volume ) 28 mg/dL 7-18 Serum or plasma creatinine measurement (mass/volume) 1.40 mg/dL 0.60-1.30 Serum or plasma urea nitrogen/creatinine mass ratio 20 NRG Serum or plasma creatinine measurement w ith calculation of estimated glomerular filtration rate 49 NRG Serum or plasma glucose measurement (mass/volume) 111 mg/dL 70-105 Serum or plasma calcium measurement (mass/volume) 8.6 mg/dL 8.5-10.1 Magnesium - 10/05/18 05:50 Magnesium 2.1 mg/dL 1.8-2.4 DIGOXIN - 10/05/18 05:50 DIGOXIN 1.10 ng/mL 0.80-2.00 Capillary blood glucose measurement by g lucometer (mass/volume) - 10/05/18 06:22 Capillary blood glucose measurement by glucometer (mas s/volume) 112 mg/dL 70-110 Capillary blood glucose measurement by g lucometer (mass/volume) - 10/05/18 11:34 Capillary blood glucose measurement by glucometer (mas s/volume) 162 mg/dL 70-110 Complete blood count (CBC) with automate d white blood cell (WBC) differential - 01/24/19 08:31 Blood leukocytes automated count (number/volume) 10.7 10*3/uL 4.3-11.0 Blood erythrocytes automated count (number/volume) 4.48 10*6/uL 4.35-5.85 Venous blood hemoglobin measurement (mass/volume) 13.0 g/dL 13.3-17.7 Blood hematocrit (volume fraction) 41 % 40-54 Automated erythrocyte mean corpuscular volume 91 [ foz_us] 80-99 Automated erythrocyte mean corpuscular h emoglobin (mass per erythrocyte) 29 pg 25-34 Automated erythrocyte mean corpuscular h emoglobin concentration measurement (mass/volume) 32 g/dL 32-36 Automated erythrocyte distribution width ratio 14. 3 % 10.0- 14.5 Automated blood platelet count (count/volume) 256 10*3/uL 130-400 Automated blood platelet mean volume measurement 9.7 [foz_us] 7.4-10.4 Automated blood neutrophils/100 leukocytes 69 % 42-75 Automated blood lymphocytes/100 leukocytes 19 % 12-44 Blood monocytes/100 leukocytes 9 % 0-12 Automated blood eosinophils/100 leukocytes 2 % 0-10 Automated blood basophils/100 leukocytes 1 % 0-10 Blood neutrophils automated count (number/volume) 7.4 10*3 1.8-7.8 Blood lymphocytes automated count (number/volume) 2.0 10*3 1.0-4.0 Blood monocytes automated count (number/volume) 0. 9 10*3 0.0-1.0 Automated eosinophil count 0.3 10*3/uL 0 .0-0.3 Automated blood basophil count (count/volume) 0.1 10*3/uL 0.0-0.1 Whole blood basic metabolic panel - 01/02 11/19 08:31 Serum or plasma sodium measurement (moles/volume) 140 mmol/L 135-145 Serum or plasma potassium measurement (moles/volume) 4.3 mmol/L 3.6-5.0 Serum or plasma chloride measurement (moles/volume) 98 mmol/L 98-107 Carbon dioxide 27 mmol/L 21-32 Serum or plasma anion gap determination (moles/volume) 15 mmol/L 5-14 Serum or plasma urea nitrogen measurement (mass/volume ) 34 mg/dL 7-18 Serum or plasma creatinine measurement (mass/volume) 1.47 mg/dL 0.60-1.30 Serum or plasma urea nitrogen/creatinine mass ratio 23 NRG Serum or plasma creatinine measurement w ith calculation of estimated glomerular filtration rate 46 NRG Serum or plasma glucose measurement (mass/volume) 196 mg/dL 70-105 Serum or plasma calcium measurement (mass/volume) 9.1 mg/dL 8.5-10.1 Magnesium - 01/24/19 08:31 Magnesium 2.2 mg/dL 1.8-2.4 DIGOXIN - 01/24/19 08:31 DIGOXIN 0.69 ng/mL 0.80-2.00 TSH w/ FREE T4 - 08/02/19 14:47 TSH 0.08 mIU/L 0.40-4.50 T4, FREE 1.6 ng/dL 0.8-1.8 Complete blood count (CBC) with automate d white blood cell (WBC) differential - 03/05/20 15:10 Blood leukocytes automated count (number/volume) 12.3 10*3/uL 4.3-11.0 Blood erythrocytes automated count (number/volume) 4.50 10*6/uL 4.35-5.85 Venous blood hemoglobin measurement (mass/volume) 13.6 g/dL 13.3-17.7 Blood hematocrit (volume fraction) 42 % 40-54 Automated erythrocyte mean corpuscular volume 94 [ foz_us] 80-99 Automated erythrocyte mean corpuscular h emoglobin (mass per erythrocyte) 30 pg 25-34 Automated erythrocyte mean corpuscular h emoglobin concentration measurement (mass/volume) 32 g/dL 32-36 Automated erythrocyte distribution width ratio 13. 9 % 10.0- 14.5 Automated blood platelet count (count/volume) 271 10*3/uL 130-400 Automated blood platelet mean volume measurement 9.8 [foz_us] 7.4-10.4 Automated blood neutrophils/100 leukocytes 74 % 42-75 Automated blood lymphocytes/100 leukocytes 18 % 12-44 Blood monocytes/100 leukocytes 7 % 0-12 Automated blood eosinophils/100 leukocytes 1 % 0-10 Automated blood basophils/100 leukocytes 0 % 0-10 Blood neutrophils automated count (number/volume) 9.1 10*3 1.8-7.8 Blood lymphocytes automated count (number/volume) 2.2 10*3 1.0-4.0 Blood monocytes automated count (number/volume) 0. 9 10*3 0.0-1.0 Automated eosinophil count 0.2 10*3/uL 0 .0-0.3 Automated blood basophil count (count/volume) 0.1 10*3/uL 0.0-0.1 Comprehensive metabolic panel - 03/05/20 15:10 Serum or plasma sodium measurement (moles/volume) 137 mmol/L 135-145 Serum or plasma potassium measurement (moles/volume) 4.0 mmol/L 3.6-5.0 Serum or plasma chloride measurement (moles/volume) 98 mmol/L 98-107 Carbon dioxide 22 mmol/L 21-32 Serum or plasma anion gap determination (moles/volume) 17 mmol/L 5-14 Serum or plasma urea nitrogen measurement (mass/volume ) 22 mg/dL 7-18 Serum or plasma creatinine measurement (mass/volume) 1.36 mg/dL 0.60-1.30 Serum or plasma urea nitrogen/creatinine mass ratio 16 NRG Serum or plasma creatinine measurement w ith calculation of estimated glomerular filtration rate 51 NRG Serum or plasma glucose measurement (mass/volume) 358 mg/dL 70-105 Serum or plasma calcium measurement (mass/volume) 8.9 mg/dL 8.5-10.1 Serum or plasma total bilirubin measurement (mass/volu me) 0.4 mg/dL 0.1-1.0 Serum or plasma alkaline phosphatase trent surement (enzymatic activity/volume) 80 U/L 40-136 Serum or plasma aspartate aminotransfera se measurement (enzymatic activity/volume) 13 U/L 5-34 Serum or plasma alanine aminotransferase measurement (enzymatic activity/volume) 13 U/L 0-55 Serum or plasma protein measurement (mass/volume) 6.4 g/dL 6.4-8.2 Serum or plasma albumin measurement (mass/volume) 3.8 g/dL 3.2-4.5 CALCIUM CORRECTED 9.1 mg/dL 8.5-10.1 TROPONIN I FS - 03/05/20 15:10 TROPONIN I FS < 0.30 <0.30 PT panel in platelet poor plasma by coag ulation assay - 03/05/20 15:10 Prothrombin time (PT) in platelet poor plasma by coagu lation assay 12.8 s 12.2-14.7 INR in platelet poor plasma or blood by coagulation as say 0.9 0.8-1.4 Activated partial thromboplastin time (a PTT) in platelet poor plasma bycoagulation assay - 03/05/20 15:10 Activated partial thromboplastin time (a PTT) in platelet poor plasma bycoagulation assay 26 s 24-35 Fibrin D-dimer FEU measurement in platel et poor plasma (mass/volume) - 03/05/20 15:10 Fibrin D-dimer FEU measurement in platelet poor plasma (mass/volume) 0.45 ug/mL 0.00-0.49 Capillary blood glucose measurement by g lucometer (mass/volume) - 03/05/20 15:35 Capillary blood glucose measurement by glucometer (mas s/volume) 355 mg/dL 70-110 Encounters ACCT No. Visit Date/Time Discharge Status Pt. Type Provider Facility Loc./Unit Complaint [id number] 03/05/2020 14:30:00 [id number] 08/02/2019 14:15:00 Document Registration [id number] 09/27/2018 14:20:00 Document Registration [id number] 03/05/2020 14:48:00 020 16:32:00 DIS Emergency RADHA ETIENNE DO [facility] ER FS FACIAL DROOPING [id number] 03/30/2019 10:19:00 019 13:10:00 DIS Outpatient ALEX OHARA MD [facility] ENDO SCREENING/+BLOOD IN STO OLS [id number] 03/28/2019 14:59:00 019 16:17:00 DIS Outpatient ALEX OHARA MD [facility] PREOP COLONOSCOPY [id number] 01/24/2019 08:18:00 019 23:59:59 CLS Outpatient MILLA POSADAS FACC, SAMANTHA ELLIOTT CC DS [facility] LAB FS N18.3 I42.0 E11.9 I65.23 I25.10 I50.22 Z86.73 [id number] 09/29/2018 12:19:00 019 15:30:00 DIS Outpatient ABEL POSADAS, HELDER Wagner [facility] 4TH LT LEG SWELLING; NAUSEA [id number] 09/22/2016 10:47:00 Document Registration [id number] 09/22/2016 10:47:00 017 23:59:59 CLS Outpatient MIR POSADAS, DIANE Saenz [facility] RAD RADICULOPATHY
== END 2020-03-05 16:32 | disposition left against medical advice (07) ==
LOC: EDUNIT# 14:47 → ER FS 14:48
DX: G45.9 Transient cerebral ischemic attack, unspecified (principal); R29.810 Facial weakness; R47.1 Dysarthria and anarthria; E11.9 Type 2 diabetes mellitus without complications; J44.9 Chronic obstructive pulmonary disease, unspecified; I48.91 Unspecified atrial fibrillation; N19 Unspecified kidney failure; Z79.84 Long term (current) use of oral hypoglycemic drugs; Z79.82 Long term (current) use of aspirin; Z79.52 Long term (current) use of systemic steroids; Z79.01 Long term (current) use of anticoagulants
CPT/HCPCS: 36415; 70450; 71045; 80053; 82962; 84484; 85025; 85379; 85610; 85730; 93005; 93041

== ENCOUNTER → 2020-10-21 | Outpatient (CLI) | payer OTHER, MEDICARE | LOC: CANPRECLI → GIR 07:44 | PROVIDERS: ATTEND Nurse Practitioner Psychiatric/Mental Health ==